=== PATIENT | male | born 1950 | race Caucasian/White ===

== ENCOUNTER 2025-03-10 08:48 | Outpatient (CLI) | payer MEDICARE, SELFPAY | END 2025-03-10 08:49 | disposition home or self-care (01) | LOC: AMB 03-11 10:40 | PROVIDERS: Visit Provider Family Medicine | DX: S59.902A Unspecified injury of left elbow, initial encounter (principal); W10.9XXA Fall (on) (from) unspecified stairs and steps, initial encounter; Y92.008 Other place in unspecified non-institutional (private) residence as the place of occurrence of the external cause | CPT/HCPCS: A0425; A0427 ==

== ENCOUNTER 2025-03-10 09:34 | Emergency (ER) | payer MEDICARE, SELFPAY ==
--- OUTSIDE RECORDS SUMMARY | 2025-01-27 09:40 | XMS_ITS | Encounter Summary ---
Author Organization [facility] Address [address] [place] [address] Care Team Providers Care Lpn Care Manager Name Role Phone Valerie Ch, P.A.-C. Primary Care Pro vider Encounter Details Date Type Department Care Team (Latest Contact Info) Description 01/27/2025 9:40 AM CDT - 01/27/2025 11:59 PM CDT Hospital Encounter Department of Laboratory Medicine in [place], [place] [address] [place] [address] Valerie Ch MPAS, P.A.-C. [address] [place] [address] Sacroiliitis; 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HCC); Arthritis Inflammatory (HCC); High Risk Medication Discharge Disposition: Home or Self Care Social History Tobacco Use Types Packs/Day Years Used Date Smoking Tobacco: Former Cigarettes 0.3 4.4 0 09/24/1983 - 02/22/1986 Passive Smoke Exposure: Past Smokeless Tobacco: Never Alcohol Use Standard Drinks/Week Comments Yes 10 (1 standard drink = 0.6 oz pure alcohol) I usually have a couple of glasses of wine on a daily basis. [facility] Utilities Answer Date Recorded In the past 12 months has [facility] electric, gas, oil, or water company threatened to shut off services in your home? No 03/05/2024 Humiliation, Afraid, Rape, and Kick questionnair e Answer Date Recorded Within the last year, have y ou been afraid of your partner or ex-partner? No 05/08/2024 Within the last year, have y ou been humiliated or emotionally abused in other ways by your partner or ex-partner? No Within the last year, have y ou been kicked, hit, slapped, or otherwise physically hurt by your partner or ex-partner? No 05/08/2024 Within the last year, have y ou been raped or forced to have any kind of sexual activity by your partner or ex-partner? No 05/08/2024 Social Connection and Isolation Panel [NHANES] A nswer Date Recorded In a typical week, how many times do you talk on the phone with family, friends, or neighbors? Once a week 12/11/2022 How often do you get togethe r with friends or relatives? Patient declined 12/11/2022 How often do you attend evangelical or episcopal serv ices? Never 12/11/2022 Do you belong to any clubs o r organizations such as evangelical groups, unions, fraternal or athletic groups, or school groups? No 12/11/2022 How often do you attend meet ings of the clubs or organizations you belong to? Patient declined 12/11/2022 Are you , , di vorced, , never , or living with a partner? 12/11/2022 AUDIT-C Answer Date Recorded Q1: How often do you have a drink containing alcohol? 4 or more times a week 12/11/2022 Q2: How many drinks containi ng alcohol do you have on a typical day when you are drinking? 1 or 2 Q3: How often do you have si x or more drinks on one occasion? Never 12/11/2022 Overall Financial Resource Strain (CARDIA) Answe r Date Recorded How hard is it for you to pa y for the very basics like food, housing, medical care, and heating? Not hard at all 12/11/2022 PHQ-2 Answer Date Recorded PHQ-2 Score 2 10/25/2024 [facility] - Occupational Stress Questionnaire Answer Date Recorded Do you feel stress - tense, restless, nervous, or anxious, or unable to sleep at night because your mind is troubled all the time - these days? Only a little 12/11/2022 Exercise Vital Sign Answer Date Recorde d On average, how many days pe r week do you engage in moderate to strenuous exercise (like a brisk walk)? 4 days 05/08/2024 On average, how many minutes do you engage in exercise at this level? 30 min 05/08/2024 Hunger Vital Sign Answer Date Recorded Within the past 12 months, y ou worried that your food would run out before you got the money to buy more. Never true 05/08/20 24 Within the past 12 months, t he food you bought just didn't last and you didn't have money to get more. Never true 05/08/2024 PRAPARE - Transportation Answer Date Re corded In the past 12 months, has l ack of transportation kept you from medical appointments or from getting medications? No 04/24 In the past 12 months, has l ack of transportation kept you from meetings, work, or from getting things needed for daily living? No 05/08/2024 Nutrition Answer Date Recorded On average, how many serving s of fruits and vegetables do you eat per day (serving size is equal to 1 cup or approximately the size of a tennis ball)? 0-2 05/08/2024 Dental Answer Date Recorded Dental: Regular Dentist Yes 11/11/19 Employment Answer Date Recorded Employment status Retired 05/08/2024 Housing Stability Answer Date Recorded What is your living situation today? I have a [facility] place to live 05/08/2024 Education Answer Date Recorded What is the highest level of school you have completed or the highest degree you have received? Some college, no degree 03/06/2019 Sex and Gender Information Value Date Recorded Sex Assigned at Male 10/15/2017 4:59 PM [employer] Legal Sex Male 6:35 AM [employer] Gender Identity Male 06/16/2020 8:28 AM CDT Sexual Orientation Straight 06/16/2020 8: 28 AM CDT Occupation Industry Job Start Date Job End Date Not on file Not on file Not on file Not on file documented as of this encounter Medications at Time of Discharge acetylcysteine 500 mg capsule Take 2 tablets by mouth daily. ascorbic acid, vitamin C, (VITAMIN C) 500 mg tablet Take 1,000 mg by mouth daily. 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 carbidopa-levodopa (Sinemet) 25-100 mg per tablet TAKE TWO TABLETS BY MOUTH THREE TIMES DAILY. INCREASE BY ONE-HALF TABLET THREE TIMES DAILY EVERY WEEK PER MED SCHEDULE TO A MAX OF THREE TABLETS BY MOUTH THREE TIMES DAILY. 270 tablet 09/12/2024 carbidopa-levodopa (Sinemet) 25-100 mg per tablet Take 2 tablets by mouth 3 (three) times a day. 540 tablet 3 11/20/2024 cholecalciferol (VITAMIN D3) 50 mcg (2,000 Unit) capsule Take 1 capsule by mouth daily. 11/25/2015 Eliquis 5 mg tablet TAKE TWO TABLETS BY MOUTH TWICE A DAY FOR 7 DAYS THEN TAKE ONE TABLET BY MOUTH TWICE A DAY THEREAFTER 11/21/2024 fluticasone propionate (Flonase) 50 mcg/actuation nasal sprayIndications:[place] Recurrent Maxillary Sinusitis Administer 2 sprays into each nostril daily. 16 g 5 06/18/2024 HERBAL DRUGS ORAL Take 600 mg by mouth daily. Alpha GPC levocarnitine HCl (JMOYAG-V-FNBHYFRVY MISC) Take 500 mg by mouth. LUTEIN ORAL Take 8,800 mcg by mouth daily. magnesium 200 mg tablet Take 1 tablet by mouth every morning. Plus 2 tabs at evening; Magtein (magnesium L-threonate) methotrexate (TrexalL) 2.5 mg tabletIndications:S acroiliitis,Spondyl itis Ankylosing (HCC),Arthritis Inflammatory (HCC),High Risk Medication TAKE 10 TABLETS BY MOUTH ONCE WEEKLY 40 tablet 01/22/2025 methylsulfonylmetha ne (MSM ORAL) Take 1 g by mouth daily. milk thistle 175 mg tablet Take 175 mg by mouth daily. multivitamin-minera ls (ICAPS PLUS) tablet Take 1 tablet by mouth daily. NICOTINAMIDE MONONUCLEOTIDE ORAL Take 250 mg by mouth daily. omega-3 fatty acids-fish oil 300-1,000 mg capsule Take 1,200 mg by mouth daily. Patient takes 1-2 times daily. sildenafiL (VIAGRA) 100 mg tablet Take 1 tablet (100 mg total) by mouth daily as needed for erectile dysfunction. Can use half tablet to start, maximum dose 100 mg 10 tablet 3 12/14/2023 TAURINE ORAL Take 500 mg by mouth daily. turmeric (CURCUMIN MISC) Take 750 mg by mouth 2 (two) times a day. TYROSINE ORAL Take 350 mg by mouth daily. N-Acetyl L-Tyrosine documented as of this encounter Plan of Treatment Upcoming Encounters Date Type Department Care Team (Latest Contact Info) Description 04/03/2025 10:30 AM CDT Ancillary Procedure Department of Ophthalmology in [place], [place] [address] [place] [address] Richy Cruz M.D. [address] [place] [phone] 04/24/2025 9:00 AM CDT Appointment Department of Cardiovascular Diseases in [address] [phone] Valerie Ch MPAS, P.A.-C. [address] [place] [phone] Discharge Disposition: Home or Self Care 05/01/2025 8:10 AM CDT Appointment Department of Laboratory Medicine in [address] [phone] Valerie Ch MPAS, P.A.-C. [address] [place] [phone] 05/08/2025 1:30 PM CDT Office Visit Department of Family Medicine, [facility], in [address] [phone] Eugene Bingham D.O. [address] [place] [phone] (work) documented as of this encounter Procedures Procedure Name Priority Date/Time Associated Diagnosis Comments HEPATIC FUNCTION PANEL, S Routine 01/27/2025 9:53 AM CDT Sacroiliitis 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HCC) Arthritis Inflammatory (HCC) High Risk Medication CBC WITH DIFFERENTIAL, B Routine 01/27/2025 9:53 AM CDT Sacroiliitis 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HCC) Arthritis Inflammatory (HCC) High Risk Medication CREATININE WITH EGFR, S/P Routine 01/27/2025 9:53 AM CDT Sacroiliitis 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HCC) Arthritis Inflammatory (HCC) High Risk Medication documented in this encounter Results * Creatinine with Estimated GFR (01/27/2025 9:53 AM CDT) Creatinine 0.76 0.74 - 1.35 mg/dL 01/27/2025 1:24 PM CDT [facility]AT Estimated GFR (eGFR) >90 >=60 mL/min/BSA 01/27/2025 1:24 PM CDT [facility] Comment: Estimated GFR calculated using the 2020 CKD_EPI creatinine equation. Blood (Blood, Venous) 01/27/2025 9:53 AM CDT 01/27/2025 12:45 PM CDT us Valerie CANO, P.A.-C. LAB BLOOD ADD-ON Final Result [facility] [address] [place] [address], [facility] [place] [address] [place] [address] * (ABNORMAL) Hepatic Function Panel (01/27/2025 9:53 AM CDT) Bilirubin, Total, P 0.4 0.0 - 1.2 mg/dL 01/27/2025 1:24 PM CDT [facility] Bilirubin, Direct, P 0.1 0.0 - 0.3 mg/dL 01/27/2025 1:24 PM CDT [facility] Aspartate Aminotransferase (AST), P 23 8 - 48 U/L 01/27/2025 1:24 PM CDT [facility] Alanine Aminotransferase (ALT), P 6(L) 7 - 55 U/L 01/27/2025 1:35 PM CDT [facility] Alkaline Phosphatase, P 54 40 - 129 U/L 01/27/2025 1:24 PM CDT [facility] Albumin, P 4.2 3.5 - 5.0 g/dL 01/27/2025 1:24 PM CDT [facility] Protein, Total, P 7.0 6.3 - 7.9 g/dL 01/27/2025 1:24 PM CDT [facility] Blood (Blood, Venous) 01/27/2025 9:53 AM CDT 01/27/2025 12:45 PM CDT us Valerie CANO, P.A.-C. LAB BLOOD ADD-ON Final Result [facility] [address] [place] [phone], [facility] [place] [address] [place] [address] * (ABNORMAL) CBC with Differential, Blood (01/27/2025 9:53 AM CDT) Hemoglobin 14.4 13.2 - 16.6 g/dL 01/27/2025 10:52 AM CDT [facility] Hematocrit 43.0 38.3 - 48.6 % 01/27/2025 10:52 AM CDT [facility] Erythrocytes 4.31(L) 4.35 - 5.65 x10(12)/L 01/27/2025 10:52 AM CDT [facility] MCV 99.8(H) 78.2 - 97.9 fL 01/27/2025 10:52 AM CDT [facility] RBC Distrib Width 13.7 11.8 - 14.5 % 01/27/2025 10:52 AM CDT [facility] Platelet Count 190 135 - 317 x10(9)/L 01/27/2025 10:52 AM CDT [facility] Leukocytes 5.9 3.4 - 9.6 x10(9)/L 01/27/2025 10:52 AM CDT [facility] Neutrophils 4.01 1.56 - 6.45 x10(9)/L 01/27/2025 10:52 AM CDT [facility] Lymphocytes 1.01 0.95 - 3.07 x10(9)/L 01/27/2025 10:52 AM CDT [facility] Monocytes 0.62 0.26 - 0.81 x10(9)/L 01/27/2025 10:52 AM CDT [facility] Eosinophils 0.23 0.03 - 0.48 x10(9)/L 01/27/2025 10:52 AM CDT [facility] Basophils 0.03 0.01 - 0.08 x10(9)/L 01/27/2025 10:52 AM CDT [facility] Blood (Blood, Venous) 01/27/2025 9:53 AM CDT 01/27/2025 9:53 AM CDT us Valerie CANO, P.A.-C. LAB BLOOD ADD-ON Final Result [facility] [address] [place] [phone], [facility] [place] [address] [place] [address] documented in this encounter Visit Diagnoses Diagnosis Sacroiliitis 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HCC) Arthritis Inflammatory (HCC) High Risk Medication documented in this encounter Additional Health Concerns Infection Onset Date Last Indicated Resolved Time Protective Environment 01/05/2023 01/05/2023 documented as of this encounter Care Teams Lpn Care Manager Relationship Specialty Start Date End Date Valerie Ch MPAS, P.A.-C. [address] [facility] [place] [phone] PCP - General 11/12/24 documented as of this encounter
--- OUTSIDE RECORDS SUMMARY | 2025-01-29 08:00 | XMS_ITS | Encounter Summary ---
Author Organization [facility] Address [address] [place] [address] Care Team Providers Care Oil Well Cable Tool Operator Name Role Phone Valerie Ch P.A.-CJorgito Primary Care Pro vider Reason for Referral * Cardiovascular-Diagnostic (Routine) - Authorized Specialty Diagnoses / Procedures Referred By Constantine peacock Referred To Contact Diagnoses Stenosis Aortic Valve Acquired Procedures Echo Transthoracic (TTE) Valerie Ch MPAS, P.A.-C. [address] [place] [address] Phone: tel: fax: [facility] Referral ID Status Reason Start Date Expiration Date V isits Requested Visits Authorized [id number] Authorized 01/29/2025 05/01/2026 1 1 Reason for Visit * Reason Comments office visit Medication review * Appointment Request (Routine) - Closed Specialty Diagnoses / Procedures Referred By Constantine peacock Referred To Contact [facility] Referral ID Status Reason Start Date Expiration Date Visits Re quested Visits Authorized [id number] Closed 01/22/2025 04/24/2026 1 1 Encounter Details Date Type Department Care Team (Latest Contact Info) Description 01/29/2025 8:00 AM CDT Comprehensive Visit Department of Community Internal Medicine in [place], [place] [address] [place] [address] Valerie Ch MPAS, P.A.-C. [address] [facility] [address] General Medical Examination Adult (Primary Dx); 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HCC); Arthritis Inflammatory (HCC); 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HCC); 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HCC); Asthma Mild Intermittent With History Of Tobacco Use (HCC); Gastroesophageal Reflux Disease Without Esophagitis; Mckenzie's Esophagus; Apnea Sleep Obstructive; Parkinsonism Unspecified (HCC); Thrombosis Deep Vein Personal History; Stenosis Aortic Valve Acquired; Hyperlipidemia Social History Tobacco Use Types Packs/Day Years Used Date Smoking Tobacco: Former Cigarettes 0.3 4.4 0 09/24/1983 - 02/22/1986 Passive Smoke Exposure: Past Smokeless Tobacco: Never Tobacco Cessation:Counseling Given: Not Answered Alcohol Use Standard Drinks/Week Comments Yes 10 (1 standard drink = 0.6 oz pure alcohol) I usually have a couple of glasses of wine on a daily basis. [facility] Psonarities Answer Date Recorded In the past 12 months has Tingz, oil, or water Temptster threatened to shut off services in your [...] declined 12/11/2022 How often do you attend latter day or advent serv ices? Never 12/11/2022 Do you belong to any clubs o r organizations such as latter day groups, unions, fraternal or athletic groups, or [...] Answer Date Recorded PHQ-2 Score 2 10/25/2024 [facility] - Occupational Stress [...] Date Recorded Dental: Regular Dentist Yes 11/11/19 21 Employment Answer Date Recorded Employment status Retired 05/08/2024 Housing Stability Answer Date Recorded What is your living situation today? I have a [facility] place to live 05/08/2024 Education Answer Date Recorded What is the highest level of school you have completed or the highest degree you have received? Some college, no degree 03/06/2019 Sex and Gender Information Value Date Recorded Sex Assigned at Male 10/15/2017 4:59 PM DISTRICT GAUGER Legal Sex Male 6:35 AM DISTRICT GAUGER Gender Identity Male 06/16/2020 8:28 AM CDT Sexual Orientation Straight 06/16/2020 8: 28 AM CDT Occupation Industry Job Start Date Job End Date Not on file Not on file Not on file Not on file documented as of this encounter Last Filed Vital Signs Vital Sign Reading Time Taken Comments Blood Pressure 120/75 01/29/2025 7:[address] Pulse 68 01/29/2025 7:44 AM CDT regul ar Temperature 36.1 C (97 F) 01/29/2025 7:44 AM CDT Respiratory Rate 16 01/29/2025 7:44 AM CDT Oxygen Saturation - - Inhaled Oxygen Concentration - - Weight 88.8 kg (195 lb 10.6 oz) 01/29/2025 7:44 AM CDT Height 168.4 cm (5' 6.3) 01/29/2025 7:44 AM CDT Body Mass Index 31.3 01/29/2025 7:44 AM CDT documented in this encounter H&P Notes * Valerie Ch MPAS, P.A.-C. - 01/29/2025 8:00 AM CDT SUBJECTIVE CHIEF COMPLAINT / REASON FOR VISIT office visit (Medication review) HISTORY OF PRESENT ILLNESS Leander Yun is a 74 y.o. male who presents today to critical access hospital care. He previously received his primary care in [place]. He has a past medical history of gastroesophageal reflux disease, seronegative rheumatoid arthritis, asthma with history of tobacco use, obstructive sleep apnea, parkinson disease. He follows with Neurology in [place]. He follows with [facility]ritis [facility]ology office in [place]. He is considering finding a new Ux Manager. He is not aware that his upper endoscopy in 2023 showed evidence of Mckenzie's esophagus. He has a family history of Mckenzie's esophagus. He takes famotidine as needed currently. He takes Eliquis as prescribed by provider at [facility]. It sounds like he was diagnosed with a DVT around Oct 2024 at [facility]. He is not sure how long he is supposed to take Eliquis. He has a left foot surgery Oct 2024 at [facility]. He is not bothered by his asthma, he does not use any inhalers. He is a former tobacco user with a 1.5 pack year history quit in . He has a history of drug use in the 1970s/. No current drug use aside from occasional marijuana. He drinks 2 alcoholic beverages per day. He says he is not very active due to issues with his left leg, left knee surgery in 2021 and then left foot surgery [id number]. ALLERGIES Levaquin [levofloxacin] Medical History[1] Surgical History[2] Family History[3] OBJECTIVE Blood pressure 120/75, pulse 68, temperature 36.1 ??C, temperature source Temporal, resp. rate 16, height 168.4 cm, weight 88.8 kg. PHYSICAL EXAMINATION Constitutional General: He is not in acute distress. Appearance: Normal appearance. HENT Head: Normocephalic and atraumatic. Right Ear: Tympanic membrane normal. Left Ear: Tympanic membrane normal. Mouth/Throat: Mouth: Mucous membranes are moist. Pharynx: Oropharynx is clear. No oropharyngeal exudate or posterior oropharyngeal erythema. Eyes Extraocular Movements: Extraocular movements intact. Conjunctiva/sclera: Conjunctivae normal. Pupils: Pupils are equal, round, and reactive to light. Cardiovascular Rate and Rhythm: Normal rate and regular rhythm. Heart sounds: Murmur heard. No gallop. Comments: Grade 2/6 systolic murmur heard throughout chest in aortic, pulmonic, tricuspid, and mitral regions. Pulmonary Effort: Pulmonary effort is normal. No respiratory distress. Breath sounds: Normal breath sounds. No wheezing, rhonchi or rales. Abdominal General: Bowel sounds are normal. There is no distension. Palpations: Abdomen is soft. Tenderness: There is no abdominal tenderness. There is no guarding or rebound. Musculoskeletal Cervical back: Neck supple. Right lower leg: Edema present. Left lower leg: Edema present. Comments: Compression stockings in place Skin General: Skin is warm and dry. Neurological Mental Status: He is alert. Mental status is at baseline. Motor: No weakness. Deep Tendon Reflexes: Reflexes normal. Psychiatric Mood and Affect: Mood normal. Behavior: Behavior normal. Thought Content: Thought content normal. 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 I have ordered CBC, creatinine/GFR, and hepatic functionpanel to be completed in 3 months for methotrexate monitoring. He previously followed at [facility] in the [facility], last visit Oct 2023. I recommend he follow-up with his Rheumatology team. #5 Asthma Mild Intermittent With History Of Tobacco Use ([facility]) No current concerns. He is not taking any prescription inhalers. #6 Gastroesophageal Reflux Disease Without Esophagitis #7 Mckenzie's Esophagus He had an upper endoscopy completed Sep 2023 with evidence of Mckenzie's esophagus without dysplasia. The recommendation is to repeat upper endoscopy in 3 years. He will be due for this in 2026. I would recommend he take daily PPI. I have sent omeprazole 20 mg daily to his pharmacy #8 Apnea Sleep Obstructive He previously used CPAP machine but no longer uses this. Previously followed with Dr. Casillas [facility]. I recommend he revisit with Sleep Medicine. #9 Parkinsonism Unspecified ([facility]) He follows with Neurology in [place] and is prescribed Sinemet #10 Thrombosis Deep Vein Personal History It sounds as though he experienced a DVT after a surgical procedure in October 2024 at [facility]. The details surrounding this event a bit unclear. He continues on Eliquis. I recommendhe talk to prescribing provider regarding duration of anticoagulation therapy #11 Stenosis Aortic Valve Acquired He has a systolic murmur on exam. Last echocardiogram completed in 2019 with evidence of mild calcifications of aortic valve. I recommend we update echocardiogram as 1st available. - Echo Transthoracic (TTE); Future; Expected date: 01/29/2025 #12 Hyperlipidemia I recommend he return to clinic for fasting lab draw to complete lipid panel #13 General Medical Examination Adult Colonoscopy completed April 2019 was normal. No specimens collected. I recommend he return to clinic for fasting lab draw to check fasting glucose, lipid panel, and PSA for prostate cancer screening. He will receive a COVID booster today. - PSA (Prostate-Specific Antigen) Screen; Future; Expected date: 01/29/2025 - Lipid Panel; Future; Expected date: 01/29/2025 - Glucose, Fasting; Future; Expected date: 01/29/2025 Other orders - CBC with Differential, Blood; Future; Expected date: 05/01/2025 - Hepatic Function Panel; Future; Expected date: 05/01/2025 - Creatinine with Estimated GFR; Future; Expected date: 05/01/2025 - omeprazole (PriLOSEC) [address] capsule; Take 1 capsule (20 mg total) by mouth daily before morning meal., Starting Neetu 01/29/2025, Normal - SARS-COV-2 (COVID-19) - MODERNA (12 years and older) [id number] Total time spent: 40 minutes Valerie Ch PA-C [1] Past Medical History: Diagnosis Date Arthritis Rheumatoid (HCC) 2016 Asthma NOS 2006 Cataract 2020 Hyperlipidemia 2015 Other Specified Health Status 2018 Parkinson's disease Sleep Apnea 2011 [2] Past Surgical History: Procedure Laterality Date APPENDECTOMY Pre-teen years ARTHROPLASTY KNEE Left 07/14/2022 Dr. Justice. CIRCUMCISION N/A Circumcision EXCISION OF CYST N/A 12/07/2015 Excision of cyst FOOT SURGERY Left [facility]. Oct 2024. LUMBAR DISCECTOMY N/A 10/09/1989 Discectomy OTHER SURGICAL HISTORY 2019 Arthroscopic surgery on knee. Left SINUS SURGERY 1999 TONSILLECTOMY AND ADENOIDECTOMY N/A Adenotonsillectomy [3] Family History Problem Relation Name Age of Onset Breast cancer Mother Kellie Macular degeneration Mother Kellie Prostate cancer Father Eugene 80 - 99 Other cancer Father Eugene 80 - 99 bladder Stroke Father Eugene 70 - 79 Esophageal stricture Father Eugene 70 - 79 Mckenzie esophagus Father Eugene 80 - 99 Essential tremor. Sister Abi No Known Problems Sister Joanie Esophageal cancer Brother Keron Yun 70 - 79 He was treated for it @ [facility] in [place], [place]. Mckenzie esophagus Brother Keron Yun 70 - 79 Hernia Brother Bogdan 40 - 49 Other (cervical spine surgery) Brother Bogdan 50 - 59 Parkinson disease Father's Brother Apollo Parkinsonism Father's Brother Apollo Essential tremor. Aunt Marsha Pablo She was my great Aunt. So, I always saw as having the condition. Breast cancer Other Flakita Yun Aortic aneurysm Other Flakita Yun 70 - 79 Retinal detachment Neg Hx Retinal degeneration Neg Hx Strabismus Neg Hx Glaucoma Neg Hx documented in this encounter Plan of Treatment Upcoming Encounters Date Type Department Care Team (Latest Contact Info) Description 04/03/2025 10:30 AM CDT Ancillary Procedure Department of Ophthalmology in [place], [place] [address] [address] Richy Cruz M.D. [address] [address] 04/24/2025 9:00 AM CDT Appointment Department of Cardiovascular Diseases in [address] [phone] Valerie Ch MPAS, P.A.-C. [address] [place] [phone] Discharge Disposition: Home or Self Care 05/01/2025 8:10 AM CDT Appointment Department of Laboratory Medicine in [address] [phone] Valerie Ch MPAS, P.A.-C. [address] [place] [address] 05/08/2025 1:30 PM CDT Office Visit Department of Family Medicine, [facility], in [address] [phone] Eugene Bingham D.O. [address] [place] [phone] Scheduled Orders Name Type Priority Associated Diagnoses Orde r Schedule CBC with Differential, Blood Lab Routine 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HCC) Arthritis Inflammatory (HCC) 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HCC) Expected: 05/01/2025, Expires: 05/01/2026 Hepatic Function Panel Lab Routine 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HCC) Arthritis Inflammatory (HCC) 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HCC) Expected: 05/01/2025, Expires: 05/01/2026 Creatinine with Estimated GFR Lab Routine 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HCC) Arthritis Inflammatory (HCC) 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HCC) Expected: 05/01/2025, Expires: 01/29/2026 Echo Transthoracic (TTE) Echocardiography Routine Stenosis Aortic Valve Acquired Expected: 01/29/2025, Expires: 05/01/2026 documented as of this encounter Results * (ABNORMAL) Glucose, Fasting (02/03/2025 8:17 AM CDT) Glucose, P 112(H) 70 - 100 mg/dL 02/03/2025 11:09 AM CDT OWAT Last Intake 16 hr 02/03/2025 10:32 AM CDT OWAT Blood (Blood, Venous) 02/03/2025 8:17 AM CDT 02/03/2025 10:31 AM CDT us Valerie CANO, P.A.-C. LAB BLOOD NON ADD -ON Final Result [facility] [address] [place] [address], [place] OWAT [facility] [place] [address] [place] [address] * (ABNORMAL) Lipid Panel (02/03/2025 8:17 AM CDT) Triglycerides 183(H) mg/dL 02/03/2025 11:01 AM CDT OWAT Comment: ----REFERENCE VALUE---- Normal: <150 mg/dL Borderline High: 150-199 mg/dL High: 200-499 mg/dL Very High: > or =500 mg/dL Cholesterol, Total 204(H) mg/dL 2024 11:01 AM CDT OWAT Comment: ----REFERENCE VALUE---- Desirable: < 200 mg/dL Borderline High: 200 - 239 mg/dL High: > or = 240 mg/dL Cholesterol, LDL, Calculated 130(H) mg/dL 02/03/2025 11:01 AM CDT OWAT Comment: ----REFERENCE VALUE---- Desirable: <100 mg/dL Above Desirable: 100-129 mg/dL Borderline High: 130-159 mg/dL High: 160-189 mg/dL Very High: >=190 mg/dL ----ADDITIONAL INFORMATION---- LDL cholesterol calculated using the Whitney/NIH equation. Cholesterol, HDL 41 >=40 mg/dL 02/04/20 11:01 AM CDT OWAT Cholesterol, Non-HDL, Calculated 163(H) mg/dL 02/03/2025 11:01 AM CDT OWAT Comment: ----REFERENCE VALUE---- Desirable: <130 mg/dL Above Desirable: 130-159 mg/dL Borderline High: 160-189 mg/dL High: 190-219 mg/dL Very High: > or =220 mg/dL Fasting (8 HR or more) Yes 02/03/2025 8:17 AM CDT OWAT Blood (Blood, Venous) 02/03/2025 8:17 AM CDT 02/03/2025 10:30 AM CDT us Valerie CANO, P.A.-C. LAB BLOOD ADD-ON Final Result [facility] [address] [place] [address], [place] OWAT [facility] [place] [address] [place] [address] * PSA (Prostate-Specific Antigen) Screen (02/03/2025 8:17 AM CDT) Prostate-Specific Ag 3.9 <=6.5 ng/mL 02/03/2025 11:03 AM CDT OW Comment: ----ADDITIONAL INFORMATION---- The testing method is an electrochemiluminescence assay manufactured by [employer] and performed on the Modular or Simona system. Values obtained with different assay methods or kits may be different and cannot be used interchangeably. Test results cannot be interpreted as absolute evidence for the presence or absence of malignant disease. Blood (Blood, Venous) 02/03/2025 8:17 AM CDT 02/03/2025 10:30 AM CDT us Valerie CANO, P.A.-C. LAB BLOOD ADD-ON Final Result [facility] [address] [place] [address], 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 [address] [place] [address] Nikki [place]ABOBO TOMPKINS [phone] PCP - General 11/12/24 documented as of this encounter
--- OUTSIDE RECORDS SUMMARY | 2025-02-03 08:04 | XMS_ITS | Encounter Summary ---
Author Organization [facility] Address [address] [place] [address] Care Team Providers Care Hospital Attendant Name Role Phone Valerie Ch, P.A.-CJorgito Primary Care Pro vider Encounter Details Date Type Department Care Team (Latest Contact Info) Description 02/03/2025 8:04 AM CDT - 02/03/2025 11:59 PM CDT Hospital Encounter Department of Laboratory Medicine in [place], [place] [address] [place] [address] Valerie Ch MPAS, P.A.-CJorgito [address] [place] [phone] Impaired Fasting Glucose (Primary Dx); General Medical Examination Adult Discharge Disposition: Home or Self Care Social History Tobacco Use Types Packs/Day Years Used Date Smoking Tobacco: Former Cigarettes 0.3 4.4 0 09/24/1983 - 02/22/1986 Passive Smoke Exposure: Past Smokeless Tobacco: Never Alcohol Use Standard Drinks/Week Comments Yes 10 (1 standard drink = 0.6 oz pure alcohol) I usually have a couple of glasses of wine on a daily basis. [facility] Utilities Answer Date Recorded In the past 12 months has Krikle, gas, oil, or water Blurb threatened to shut off services in your [...] declined 12/11/2022 How often do you attend synagogue or jehovah's witness serv ices? Never 12/11/2022 Do you belong to any clubs o r organizations such as synagogue groups, unions, fraternal or athletic groups, or [...] when you are drinking? 1 or 2 3 Q3: How often do you have si x or more drinks on one occasion? Never 12/11/2022 Overall Financial Resource Strain (CARDIA) Answe r Date Recorded How hard is it for you to pa y for the very basics like food, housing, medical care, and heating? Not hard at all 12/11/2022 PHQ-2 Answer Date Recorded PHQ-2 Score 2 10/25/2024 [facility] Occupat ional Health - Occupational Stress [...] your living situation today? I have a [facility] place to live 05/08/2024 Education Answer Date Recorded What is the highest level of school you have completed or the highest degree you have received? Some college, no degree 03/06/2019 Sex and Gender Information Value Date Recorded Sex Assigned at Male 10/15/2017 4:59 PM SURGEON PARTNER Legal Sex Male 6:35 AM SURGEON PARTNER Gender Identity Male 06/16/2020 8:28 AM CDT [...] fluticasone propionate (Flonase) 50 mcg/actuation nasal sprayIndications:Ac upper [place] Recurrent Maxillary Sinusitis Administer 2 sprays into each nostril daily. 16 g 5 06/18/2024 HERBAL DRUGS ORAL Take 600 mg by mouth daily. Alpha GPC levocarnitine HCl (AEJTGI-H-GLJJXZIML MISC) Take 500 mg by mouth. LUTEIN [...] mouth daily. Patient takes 1-2 times daily. omeprazole (PriLOSEC) [address] capsule Take 1 capsule (20 mg total) by mouth daily before morning meal. 90 capsule 3 01/29/2025 Research IRB [id number] n-palmitoylethanola mide 400 mg or placebo (PEA) capsule Take by mouth daily. sildenafiL (VIAGRA) 100 mg tablet Take [...] 350 mg by mouth daily. N-Acetyl L-Tyrosine folic acid-vitamin B6,B12 (Folbee) 2.5-25-1 mg per tablet Take 1 tablet by mouth daily. documented as of this encounter Plan of Treatment Upcoming Encounters Date Type Department Care Team (Latest Contact Info) Description 04/03/2025 10:30 AM CDT Ancillary Procedure Department of Ophthalmology in [place], [place] [address] [phone] Richy Cruz M.D. [address] [phone] 04/24/2025 9:00 AM CDT Appointment Department of Cardiovascular Diseases in [place], [place] [address] [place] [address] Valerie Ch MPAS, P.A.-C. [address] [place] [phone] Discharge Disposition: Home or Self Care 05/01/2025 8:10 AM CDT Appointment Department of Laboratory Medicine in [place], [place] [address] [place] [phone] Valerie Ch MPAS, P.A.-C. [address] [place] [phone] 05/08/2025 1:30 PM CDT Office Visit Department of Family Medicine, [facility], in [place], [place] [address] [place] [phone] Eugene Bingham D.O. [address] [place] [phone] documented as of this encounter Procedures Procedure Name Priority Date/Time Associated Diagnosis Comments LIPID PANEL, S Routine 02/03/2025 8:17 AM CDT General Medical Examination Adult PROSTATE-SPECIFIC AG (PSA) SCRN, S Routine 02/03/2025 8:17 AM CDT General Medical Examination Adult GLUCOSE, FASTING, S/P Routine 02/03/2025 8:17 AM CDT General Medical Examination Adult documented in this encounter Results * (ABNORMAL) Glucose, Fasting (02/03/2025 8:17 AM CDT) Glucose, P 112(H) 70 - 100 mg/dL 02/03/2025 11:09 AM CDT OWAT Last Intake 16 hr 02/03/2025 10:32 AM CDT OWAT Blood (Blood, Venous) 02/03/2025 8:17 AM CDT 02/03/2025 10:31 AM CDT Valerie Ch MPAS, P.A.-C. LAB BLOOD NON ADD -ON Final Result [facility] [address] [place] [address], [place] OWAT [facility] [place] [address] [place] [address] * (ABNORMAL) Lipid Panel (02/03/2025 8:17 AM [...] CANO, P.A.-C. LAB BLOOD ADD-ON Final Result [facility] [address] [place] [address], [place] OWAT [facility] [place] [address] [place] [address] * PSA (Prostate-Specific Antigen) Screen (02/03/2025 8:17 AM CDT) Prostate-Specific Ag 3.9 <=6.5 ng/mL 02/03/2025 11:03 AM CDT OWAT Comment: ----ADDITIONAL INFORMATION---- The testing method is [...] CDT 02/03/2025 10:30 AM CDT us Valerie CANO PJorgitoA.-C. LAB BLOOD ADD-ON Final Result [facility] [address] [place] [address], [facility] OWAT [facility] [place] [address] [place] [address] documented in this encounter Visit Diagnoses Diagnosis Impaired Fasting Glucose- Primary General Medical Examination Adult documented in this encounter Additional Health Concerns Infection Onset Date Last Indicated Resolved Time Protective Environment 01/05/2023 01/05/2023 documented as of this encounter Care Teams Hospital Attendant Relationship Specialty Start Date End Date Valerie Ch MPAS, P.A.-C. [address] [place] [address] [place] [address] PCP - General 11/12/24 documented as of this encounter
[2025-03-10] VITALS (13 sets, daily range): BP systolic 116–130; BP diastolic 71–88; PULSE 63–71; RESP 16–18; TEMP 36.3; O2SAT 93–96; BMI 31.5
--- OUTSIDE RECORDS SUMMARY | 2025-03-10 09:36 | XMS_ITS | Encounter Summary ---
Author Organization [facility] Address [address] [place] [address] Care Team Providers Care Seed And Fertilizer Specialist Name Role Phone Valerie Ch P.A.-CJorgito Primary Care Pro vider Encounter Details Date Type Department Care Team (Late st Contact Info) Description 02/04/2025 Results Follow-Up Department of Community Internal Medicine in [place], [place] [address] [place] [address] Valerie Ch MPAS, P.A.-CJorgito [address] [place] [phone] PSA (Prostate-Specific Antigen) Screen, Lipid Panel, Glucose, Fasting Social History Tobacco Use Types Packs/Day Years Used Date Smoking Tobacco: Former Cigarettes 0.3 4.4 0 09/24/1983 - 02/22/1986 Passive Smoke Exposure: Past Smokeless Tobacco: Never Alcohol Use Standard Drinks/Week Comments Yes 10 (1 standard drink = 0.6 oz pure alcohol) I usually have a couple of glasses of wine on a daily basis. [facility] Utilities Answer Date Recorded In the past 12 months has e [employer], gas, oil, or water [employer] threatened to shut off services in your [...] declined 12/11/2022 How often do you attend lutheran or cheondoism serv ices? Never 12/11/2022 Do you belong to any clubs o r organizations such as lutheran groups, unions, fraternal or athletic groups, or [...] Answer Date Recorded PHQ-2 Score 2 10/25/2024 [facility] - Occupational [...] your living situation today? [facility] 05/08/2024 Education Answer Date Recorded What is the highest level of school you have completed or the highest degree you have received? 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 [address] [place] [phone] 04/24/2025 9:00 AM CDT Appointment Department of Cardiovascular Diseases in [place], [place] [address] [place] [address] Valerie Ch MPAS, P.A.-C. [address] [place] [address] Discharge Disposition: Home or Self Care 05/01/2025 8:10 AM CDT Appointment Department of Laboratory Medicine in [address] [phone] Valerie Ch MPAS, P.A.-C. [address] [place] [phone] 05/08/2025 1:30 PM CDT Office Visit Department of Family Medicine, [facility], in [place], [place] [address] [place] [address] Eugene Bingham D.O. [address] [phone] Scheduled Orders Name Type Priority Associated Diagnoses Orde r Schedule Hemoglobin A1c Lab Routine Impaired Fasting Glucose Expected: 02/05/2025, Expires: 05/08/2026 documented as of this encounter Visit Diagnoses Diagnosis Impaired Fasting Glucose- Primary documented in this encounter Additional Health Concerns Infection Onset Date Last Indicated Resolved Time Protective Environment 01/05/2023 01/05/2023 documented as of this encounter Care Teams Seed And Fertilizer Specialist Relationship Specialty Start Date End Date Valerie Ch MPAS, P.A.-C. [address] [place] [phone] PCP - General 11/12/24 documented as of this encounter
--- OUTSIDE RECORDS SUMMARY | 2025-03-10 09:36 | XMS_ITS | Encounter Summary ---
Author Organization [facility] Address [address] [place] [address] Care Team Providers Care Manager Marketing Sales Name Role Phone Valerie Ch P.A.-C. Primary Care Pro vider Reason for Visit * Reason Comments Med Refill Encounter Details Date Type Department Care Team (Late st Contact Info) Description 02/26/2025 Refill Department of Neurology in [place], [place] [address] [place] [address] Nellie Jones M.D. [address] [place] [phone] Med Refill Social History Tobacco Use Types Packs/Day Years Used Date Smoking Tobacco: Former Cigarettes 0.3 4.4 0 09/24/1983 - 02/22/1986 Passive Smoke Exposure: Past Smokeless Tobacco: Never Alcohol Use Standard Drinks/Week Comments Yes 10 (1 standard drink = 0.6 oz pure alcohol) I usually have a couple of glasses of wine on a daily basis. [facility] Utilities Answer Date Recorded In the past 12 months has e electric, gas, oil, or water company threatened [...] declined 12/11/2022 How often do you attend catholic or roman catholic serv ices? Never 12/11/2022 Do you belong to any clubs o r organizations such as catholic groups, unions, fraternal or athletic groups, or [...] Answer Date Recorded PHQ-2 Score 2 10/25/2024 [facility] [employer] of Occupat ional Health - Occupational Stress [...] your living situation today? [facility] 05/08/2024 Education Answer Date Recorded What is the highest level of school you have completed or the highest degree you have received? 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 [address] [phone] 04/24/2025 9:00 AM CDT Appointment Department of Cardiovascular Diseases in [place], [place] [address] [place] [phone] Valerie Ch MPAS, P.A.-C. [address] [facility] [place] [phone] Discharge Disposition: Home or Self Care 05/01/2025 8:10 AM CDT Appointment Department of Laboratory Medicine in [place], [place] [address] [facility] [place] [phone] Valerie Ch MPAS, P.A.-C. [address] [facility] [place] [phone] 05/08/2025 1:30 PM CDT Office Visit Department of Family Medicine, [facility], in [place], [place] [address] [place] [phone] Eugene Bingham D.O. [address] [facility] [place] [place] [phone] documented as of this encounter Visit Diagnoses Not on filedocumented in this encounter Additional Health Concerns Infection Onset Date Last Indicated Resolved Time Protective Environment 01/05/2023 01/05/2023 documented as of this encounter Care Teams Manager Marketing Sales Relationship Specialty Start Date End Date Valerie Ch MPAS, P.A.-C. [address] [place] [address] [place] [phone] PCP - General 11/12/24 documented as of this encounter
--- OUTSIDE RECORDS SUMMARY | 2025-03-10 09:36 | XMS_ITS | Clinical Summary ---
Author Organization [facility] Address [address] [place] [address] Care Team Providers Care Gatehouse Attendant Name Role Phone RyannemejiaPreethi Slime PRICE Primary Care Provider Allergies Active Allergy Reactions Criticality Noted Date Comments Levofloxacin Myalgia Medium 10/01/2019 Tendon injury Medications acetylcysteine 600 mg cap capsule Take 1 Cap by mouth once daily. 6 Active cholecalciferol (VITAMIN D3) 2,000 unit capsule Take 1 Cap by mouth once daily. 6 Active LACTOBACILLUS ACIDOPHILUS ORAL Take 1 Cap by mouth once daily. Active Magnesium 200 mg tab Take 133 mg by mouth once daily. Active Milk Thistle 175 mg tablet Take 175 mg by mouth once daily. Active fish oil-omega-3 fatty acids 300-1,000 mg Take 1,200 mg by mouth once daily. Active ascorbic acid (VITAMIN C ORAL) Take 500 mg by mouth once daily. Active carbidopa-levod opa, 25-100 mg, (SINEMET 25-100) 25-100 mg tablet Take 1 Tablet by mouth three times daily. Active GLYCINE ORAL Take 1 g by mouth once daily. Active LEVOCARNITINE HCL, BULK, MISC Take 500 mg by mouth once daily. Active TURMERIC ORAL Take 750 mg by mouth once daily. Active folic acid-vit b6-vit b12, 2.5-25-2mg, (Folbic) 2.5-25-2 mg tab Take 1 Tablet by mouth once daily. 1 Active acetaminophen (TYLENOL EXTRA STRGTH) 500 mg tabletIndicatio ns:Total knee replacement status, left Take 1 Tablet (500 mg) by mouth every 6 hours if needed for Pain. Max acetaminophen dose: 4000mg in 24 hrs. 200 Tablet 2 Active WalkerIndicatio ns:Total knee replacement status, left Walker with front wheels for home use. 1 Each 2 Active aspirin chewable 81 mg chewable tablet Chew 81 mg by mouth once daily with a meal. 2 Active methotrexate (RHEUMATREX) 2.5 mg tablet Take 2.5 mg by mouth once weekly. 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 Gender Identity Not on file Sexual Orientation Not on file Obstetrics History Last Filed Vital Signs Vital Sign Reading Time Taken Comments Blood Pressure 115/73 09/27/2023 9:55 AM RING ATTACHER Pulse 67 09/27/2023 9:55 AM RING ATTACHER Temperature 36 C (96.8 F) 09/27/2023 9:07 AM RING ATTACHER Respiratory Rate 18 09/27/2023 9:55 AM RING ATTACHER Oxygen Saturation 98% 09/27/2023 9:55 AM RING ATTACHER Inhaled Oxygen Concentration - - Weight 88 kg (194 lb) 09/27/2023 8:26 AM RING ATTACHER Height 167 cm (5' 5.75) 09/18/2023 4:54 PM RING ATTACHER Body Mass Index 31.55 09/18/2023 4:54 PM RING ATTACHER Plan of Treatment Health Maintenance Due Date Last Done Comments Tdap 1959 Depression screening for age 12+ 1960 BMI (ht and wt on same day) for age 18+ 1966 Hepatitis C screening for age 18-79 1966 Zoster (shingles) series for age 50+ (1 of 2) 1967 Tetanus booster 1968 Pneumococcal series for age 50+ (1 of 1 - PCV) 1998 RSV vaccine for adults or (1 - 1-dose 75+ series) 2023 Influenza Vaccine (Season Ended) 2025 07/28/2010 COVID-19 vaccine series (8 - Moderna risk season) 2025 01/29/2025, 07/11/2023, 06/21/2022, Additional history exists Hepatitis B series for 19+ Aged Out N o longer eligible based on patient's age to complete this topic Medical Devices Implanted Type Area Hydraulic Tester Device Identifier Shelf Expiration Date Model / Serial / Lot Patella [id number] Triathlon Tritanium Symmetrical Metal Backed - [id number] Implanted:Qty: 1 on 07/14/2022 by Apollo Justice MD at [facility] Left: Knee [employer] 05/29/2027 [id number] / / [id number] Fem Lt 5 Triathlon Beaded W/Pa - [id number] Implanted:Qty: 1 on 07/14/2022 by Apollo Justice MD at [facility] Left: Knee [employer] 05/21/2027 [id number] / / [id number] Baseplate Tib Univ Sz 4 Triathlon Keeled Ingrowth Pors Tritan - [id number] Implanted:Qty: 1 on 07/14/2022 by Apollo Justice MD at [facility] Left: Knee [employer] 05/17/2027 [id number] / / [id number] Insert Tib Sz 4 11mm Knee X3 Condylar Stabilizing [employer]athlon - [id number] Implanted:Qty: 1 on 07/14/2022 by Apollo Justice MD at [facility] Left: Knee [employer] 05/02/2027 [id number] / / [id number] Insurance MEDICARE PART A HB ONLY [facility] MEDICARE ADVANTAGE MR Advance Directives * Full Code (Latest Code Status on File) Date Activated Date Inactivated Comments 09/27/2023 8:11 AM 09/27/2023 12:09 PM Question Answer Comments Code Status Discussion: Reviewed Preferences * Full Code Date Activated Date Inactivated Comments 07/14/2022 5:55 AM 07/14/2022 6:14 PM Question Answer Comments Code Status Discussion: Per Existing Order * Full Code Date Activated Date Inactivated Comments 05/14/2020 9:58 AM 05/14/2020 4:38 PM * Full Code Date Activated Date Inactivated Comments 05/19/2019 10:29 AM 05/19/2019 4:14 PM Care Teams Gatehouse Attendant Relationship Specialty Start Date End Date Slime Esquivel DO PCP - General Internal Medicine 05/13/19
--- OUTSIDE RECORDS SUMMARY | 2025-03-10 09:37 | XMS_ITS | Continuity of Care Document ---
Author Organization [facility] Address [address] [place] [address] Care Team Providers Care Sugarcane Research Technician Name Role Phone Valerie Ch, P.A.-C. Primary Care Pro vider Source Comments Patient records contain information from all sites at [facility]. For routine questions regarding patient records, call [phone] during business hours, M-F 8:00 AM - 5:00 PM Central Time. Record requests for emergency care only can be directed to [phone] at any time.[facility] Encounters Date Type Department Care Team Description 5 Refill Department of Neurology in [place], [place] [address] [place] [address] Nellie Jones M.D. Med Refill 5 Results Follow-Up Department of Community Internal Medicine in [address] [phone] Valerie Ch MPAS, P.A.-C. PSA (Prostate-Specific Antigen) Screen, Lipid Panel, Glucose, Fasting 5 8:04 AM CDT - 5 11:59 PM CDT Hospital Encounter Department of Laboratory Medicine in [address] [phone] Valerie hC MPAS, P.A.-C. Impaired Fasting Glucose (Primary Dx); General Medical Examination Adult Discharge Disposition: Home or Self Care 5 8:00 AM CDT Comprehensive Visit Department of Community Internal Medicine in [place], [place] [address] [place] [address] Valerie Ch MPAS, P.A.-C. General Medical Examination Adult (Primary Dx); 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HCC); Arthritis Inflammatory (HCC); 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HCC); 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HCC); Asthma Mild Intermittent With History Of Tobacco Use (HCC); Gastroesophageal Reflux Disease Without Esophagitis; Mckenzie's Esophagus; Apnea Sleep Obstructive; Parkinsonism Unspecified (HCC); Thrombosis Deep Vein Personal History; Stenosis Aortic Valve Acquired; Hyperlipidemia 5 9:40 AM CDT - 5 11:59 PM CDT Hospital Encounter Department of Laboratory Medicine in [address] [address] Valerie Ch MPAS, P.A.-CJorgito Sacroiliitis; 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HCC); Arthritis Inflammatory (HCC); High Risk Medication Discharge Disposition: Home or Self Care 5 Refill Department of Community Internal Medicine in [place], [place] [address] [place] [phone] Valerie Ch MPAS, P.A.-CJorgito Med Refill 5 10:41 AM CDT - 5 11:46 AM CDT Hospital Encounter Department of Neurology in [place], [place] [address] [place] [address] Nellie Jones M.D. Ali, Farwa, M.B.B.S. Sialorrhea Discharge Disposition: Home or Self Care 5 Clinical Communication Department of Neurology in [place], [place] [address] [place] [address] Nellie Jones M.D. 5 Refill Department of Community Internal Medicine in [place], [place] [address] [place] [phone] Valerie Ch MPAS P.A.-C. Med Refill 5 Results Follow-Up Department of Internal Medicine in [address] [address] Marta Martines P.A.-C., M.S. ECG 12 Lead, CBC with Differential, Blood, Comprehensive Metabolic Panel 5 8:27 AM BARREL MAKER - 5 11:59 PM BARREL MAKER Hospital Encounter Department of Laboratory Medicine in [address] [address] Marta Martines P.A.-C., M.S. Preoperative Exam Discharge Disposition: Home or Self Care 5 8:27 AM BARREL MAKER - 5 11:59 PM BARREL MAKER Hospital Encounter Department of Laboratory Medicine in [address] [address] Marta Martines P.A.-C., M.S. Preoperative Exam; 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HCC); 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HCC); High Risk Medication Discharge Disposition: Home or Self Care 5 8:00 AM BARREL MAKER Office Visit Department of Internal Medicine in [address] [address] Marta Martines P.A.-C., M.S. Preoperative Exam (Primary Dx); Parkinsonism Unspecified (HCC); 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HCC); 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HCC); 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HCC); Sleep Apnea; High Risk Medication 5 1:30 PM BARREL MAKER Office Visit Department of Otorhinolaryngology in [address] [facility] [place] [address] Bisi Gill P.A.-C. Otitis Media Chronic Serous Right (Primary Dx); Follow Up Examination Status Post Surgery 5 9:15 AM BARREL MAKER Ancillary Procedure Department of Ophthalmology in [address] [address] Richy Cruz M.D. Cataract Senile Nuclear Sclerosis Bilateral (Primary Dx); Membrane Macula Epiretinal Right 4 Refill Department of Neurology in [place], [place] [address] [place] [address] Nellie Jones M.D. Med Refill 4 Refill Department of Neurology in [place], [place] [address] [place] [address] Nellie Jones M.D. Med Refill 4 11:09 AM BARREL MAKER - 4 11:59 PM BARREL MAKER Hospital Encounter Department of Radiology in [address] [address] Marta Martines P.A.-C., M.S. Pain Ankle Left Discharge Disposition: Home or Self Care 4 10:40 AM BARREL MAKER Office Visit Department of Internal Medicine in [address] [address] Marta Martines P.A.-C., M.S. Pain Ankle Left (Primary Dx); Swelling Leg Left; 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HCC) 4 9:00 AM BARREL MAKER Comprehensive Visit Department of Otorhinolaryngology in [address] [address] Bisi Gill, P.A.-C. 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 Swelling Leg Left Discharge Disposition: Home or Self Care 4 3:00 PM BARREL MAKER Office Visit Department of Family Medicine, [facility], in [address] [address] Noemi Ernst APRN, C.N.P., D.N.P. Swelling Leg Left (Primary Dx); Elevated D-Dimer Uncertain Significance; Pain Ankle Left 4 Nurse Triage Department of Internal Medicine in [address] [address] Caryn Pacheco R.N. Ankle Pain 4 Clinical Communication Department of Orthopedic Surgery in [address] [address] Apollo Justice M.D. 4 9:26 AM CDT - 4 11:59 PM CDT Hospital Encounter Department of Laboratory Medicine in [address] [address] Slime Reynoso, D.O. Arthritis Inflammatory (HCC) Discharge Disposition: Home or Self Care 4 Clinical Communication Department of Ophthalmology in [address] [address] Richy Cruz M.D. Appt Request 4 3:40 PM CDT Office Visit Department of Internal Medicine in [address] [address] Slime Reynoso D.O. Dysfunction Eustachian Tube Bilateral (Primary Dx); 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HCC); 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HCC); Acute Recurrent Maxillary Sinusitis 4 Refill Department of Internal Medicine in [address] [address] Slime Reynoso D.O. Med Refill 4 Nurse Triage Department of Family Medicine, [facility], in [place], [place] [address] [place] [address] Nusrat Duke R.N. Earache 4 Clinical Communication Department of Internal Medicine in [address] [address] Slime Reynoso D.O. 4 11:00 AM CDT Nurse Only Department of Internal Medicine in [address] [address] Mi Alberts M.D. Pritzl, Megan G, R.N. Medicare Annual Wellness Visit Subsequent 4 9:30 AM CDT Ancillary Procedure Department of Ophthalmology in [address] [address] Richy Cruz M.D. Cataract Senile Nuclear Sclerosis Bilateral (Primary Dx); Membrane Macula Epiretinal Right 4 10:15 AM CDT Comprehensive Visit Department of Ophthalmology in [address] [address] Richy Cruz M.D. Cataract Senile Nuclear Sclerosis Bilateral (Primary Dx); Membrane Macula Epiretinal Right; Dry Eye Syndrome Bilateral 4 9:30 AM CDT Office Visit Department of Family Medicine in [address] [address] Maricruz Acevedo APRN C.N.P. Alysia Lazo, D., BCACP, R.Ph. Parkinsonism Unspecified (HCC); Medication Management Issue; Polypharmacy 4 9:34 AM CDT - 4 11:59 PM CDT Hospital Encounter Department of Laboratory Medicine in [place], [place] [address] [place] [address] Raz Montemayor D.O. 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) Discharge Disposition: Home or Self Care 4 11:00 AM CDT Telemedicine Department of Urology in [place], [place] [address] [place] [address] Maricruz Acevedo APRN, C.N.PJorgito Parkinsonism Unspecified (HCC) (Primary Dx); Urinary Urge Incontinence 4 [facility] [address] [facility] [address] [place] [address] Raz Montemayor D.O. 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) (Primary Dx) 4 1:20 PM CDT - 4 11:59 PM CDT Hospital Encounter Department of Laboratory Medicine in [place], [place] [address] [place] [address] Slime Reynoso, D.OJorgito 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HCC) Discharge Disposition: Home or Self Care 4 Clinical Communication Department of Internal Medicine in [place], [place] [address], [place] [address] Slime Reynoso, D.OJorgito 4 11:00 AM CDT Office Visit Department of Urology in [place], [place] [address], [place] [address] Maricruz Acevedo APRN C.N.PJorgito Overactive Bladder (Primary Dx) 4 Clinical Communication Department of General Surgery in [address] [address] Rob Leyva M.D. 3 10:30 AM BARREL MAKER Office Visit Department of Urology in [address] [address] Maricruz Acevedo APRN, C.N.P. Overactive Bladder (Primary Dx); Parkinsonism Unspecified (HCC) 3 2:00 PM BARREL MAKER Comprehensive Visit Department of Internal Medicine in [address] [address] Haley Mendoza APRN, C.N.P., D.N.P. Gastroesophageal Reflux Disease Without Esophagitis (Primary Dx); Need Vaccine Immunization Tetanus And Diphtheria Toxoids And Pertussis 3 11:00 AM BARREL MAKER Procedure visit Department of Urology in [address] [address] Cy Meyers M.D. Urinary Urge Incontinence; Hypertonic Bladder 3 Orders Only Department of Urology in [address] [address] Maricruz Acevedo APRN, C.N.P. 3 9:50 AM BARREL MAKER - 3 11:59 PM BARREL MAKER Hospital Encounter Department of Laboratory Medicine in [address] [address] Cy Meyers M.D. Urinary Urge Incontinence; Hypertonic Bladder Discharge Disposition: Home or Self Care 3 9:30 AM BARREL MAKER Office Visit Department of Family Medicine in [address] [address] Maricruz Acevedo APRN, C.N.P. Alysia Lazo Pharm.D., BCACP, R.Ph. Medication Management Issue (Primary Dx); Parkinsonism Unspecified (HCC); Polypharmacy 3 3:28 PM BARREL MAKER - 3 4:00 PM BARREL MAKER Hospital Encounter Department of Neurology in [place], [place] [address] [place] [address] Nelile Jones M.D. Sialorrhea (Primary Dx); Parkinsonism Unspecified (HCC) Discharge Disposition: Home or Self Care 3 Clinical Communication Department of Neurology in [place], [place] [address] [place] [address] Nellie Jones M.D. 3 1:45 PM BARREL MAKER Ancillary Procedure Department of Urology 3 1:45 PM BARREL MAKER Procedure visit Department of Urology in [place], [place] [address] [address] Cy Meyers M.D. Hypertonic Bladder (Primary Dx); Urinary Urge Incontinence 3 3:30 PM BARREL MAKER Comprehensive Visit Department of Neurology in [place], [place] [address] [place] [address] Nellie Jones M.D. Parkinsonism Unspecified (HCC) 3 3:15 PM CDT Clinical Communication Virtual Review in [place], [place] [address] [place] [address] 3 9:29 AM CDT - 3 11:59 PM CDT Hospital Encounter Department of Radiology in [place], [place] [address] [place] [address] Melita Thurston P.A.-C., P.A. Pain Knee Right Discharge Disposition: Home or Self Care 3 10:15 AM CDT Comprehensive Visit Department of Orthopedic Surgery in [place], [place] [address] [place] [address] Melita Thurston P.A.-C., P.A. Pain Knee Right (Primary Dx) 3 2:30 PM CDT Immunization Department of Family Medicine, [facility], in [place], [place] [address] [place] [address] 3 Orders Only Department of Urology in [address] [phone] Maricruz Acevedo APRN, C.N.P. Parkinsonism Unspecified (HCC) (Primary Dx) 3 2:00 PM CDT Office Visit Department of Urology in [address] [phone] Maricruz Acevedo APRN, C.N.P. Parkinsonism Unspecified (HCC) (Primary Dx); Urgency Urinary 3 2:40 PM CDT Telemedicine Department of Internal Medicine in [address] [phone] Slime Reynoso D.O. 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HCC) (Primary Dx); 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HCC); Parkinsonism Unspecified (HCC) 3 Documentation Department of Orthopedic Surgery in [address] [address] Apollo Justice M.D. Arthroplasty (1 year Left TKA 07/14/22 Vinh OKS form completion) 3 Clinical Communication Department of Urology in [address] [address] Maricruz Acevedo APRN, C.N.P. Rx Denial (TROSPIUM CHL 20 MG TAB) 3 10:30 AM CDT Comprehensive Visit Department of Urology in [address] [address] Maricruz Acevedo APRN, C.N.PJorgito Urinary Urge Incontinence 3 1:28 PM CDT - 3 11:59 PM CDT Hospital Encounter Department of Laboratory Medicine in [address] [address] Slime eRynoso D.O. 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HCC); 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HCC) Discharge Disposition: Home or Self Care 3 1:25 PM CDT - 3 1:27 PM CDT Hospital Encounter Department of Laboratory Medicine in [address] [address] Slime Reynoso D.O. Urinary Urge Incontinence Discharge Disposition: Home or Self Care 3 Refill Department of Rheumatology in [address] [address] Aure Winters APRN, C.N.P., M.S.N. Med Refill 3 3:30 PM CDT Office Visit Department of Family Medicine, [facility], in [address] [address] Slime Reynoso D.O. Dressel, Brandie L, R.N. Annual Medicare Examination Return (Primary Dx) 3 Clinical Communication Department of Internal Medicine in [address] [address] Slime Reynoso D.O. denied scheduling in [place]; Referral Request (Rheumatology referral) 3 11:00 AM CDT Office Visit Department of Internal Medicine in [address] [address] Slime Reynoso D.O. 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HCC) (Primary Dx); 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HCC); Parkinson Disease (HCC); Sleep Apnea; Urinary Urge Incontinence; 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HCC); Asthma Mild Intermittent With History Of Tobacco Use; History Of Falling; Murmur Heart 3 Orders Only [facility] Slime Reynoso D.O. 3 Refill Department of Community Internal Medicine in [place], [place] [address] [place] [address] Valerie Ch MPAS, P.A.-C. Med Refill 3 3:15 PM CDT Comprehensive Visit Department of Ophthalmology in [place], [place] [address] [place] [phone] Richy Cruz M.D. Cataract Senile Nuclear Sclerosis Bilateral (Primary Dx); Membrane Macula Epiretinal Right; Dry Eye Syndrome Bilateral 3 Refill Department of Neurology in [place], [place] [address] [place] [address] Sylvia Mercado M.D., Ph.D. Med Refill 3 1:30 PM CDT Telemedicine Department of Rheumatology in [place], [place] [address] [address] Aure Winters APRN, C.N.P., M.S.N. 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HCC) (Primary Dx); 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HCC); High Risk Medication; Arthritis Inflammatory (HCC); Sacroiliitis (HCC); Primary Osteoarthritis Multiple Sites 3 9:30 AM BARREL MAKER - 3 11:59 PM BARREL MAKER Hospital Encounter Department of Laboratory Medicine in [place], [place] [address] [place] [address] Aure Winters APRN C.N.P., M.S.N. Arthritis Inflammatory (HCC); Sacroiliitis (HCC); High Risk Medication Discharge Disposition: Home or Self Care 3 Refill Department of Rheumatology in [address] [address] Aure Winters APRN CJorgitoNObi., M.S.N. Med Refill 3 10:30 AM BARREL MAKER Office Visit Department of Orthopedic Surgery in [address] [address] Melita Thurston P.A.KristineC., P.A. Arthroplasty Total Knee Replacement Status Post Left (Primary Dx) 2 1:30 PM BARREL MAKER Office Visit Department of Orthopedic Surgery in [address] [address] Apollo Justice M.D. Arthroplasty Total Knee Replacement Status Post Left (Primary Dx) 2 12:45 PM BARREL MAKER - 2 11:59 PM BARREL MAKER Hospital Encounter Department of Radiology in [address] [address] Apollo Justice M.D. Primary Osteoarthritis Knee Left Discharge Disposition: Home or Self Care 2 Refill Department of Orthopedic Surgery in [address] [address] Aminta Soto P.A.-C., P.A. Med Refill 2 10:30 AM BARREL MAKER Office Visit Department of Orthopedic Surgery in [address] [address] Aminta Soto P.A.-C., P.A. Arthroplasty Total Knee Replacement Status Post Left (Primary Dx) 2 Orders Only Department of Orthopedic Surgery in [address] [address] Apollo Justice M.D. Arthroplasty Total Knee Replacement Status Post Left (Primary Dx) 2 7:01 AM CDT - 2 11:59 PM CDT Hospital Encounter Department of Radiology in [address] [address] Apollo Justice M.D. Arthroplasty Total Knee Replacement Status Post Left Discharge Disposition: Home or Self Care 2 1:48 PM CDT - 2 11:59 PM CDT Hospital Encounter Department of Laboratory Medicine in [address] [address] Slime Reynoso D.O. Hyperkalemia Discharge Disposition: Home or Self Care 2 10:20 AM CDT Lab Department of General Surgery in [address] [address] Apollo Justice M.D. Primary Osteoarthritis Knee Left 2 9:51 AM CDT - 2 11:59 PM CDT Hospital Encounter Department of Laboratory Medicine in [address] [address] Slime Reynoso, D.O. Preoperative Exam Discharge Disposition: Home or Self Care 2 9:50 AM CDT Hospital Encounter Department of Laboratory Medicine in [address] [address] Slime Reynoso, D.O. Preoperative Exam Discharge Disposition: Home or Self Care 2 9:30 AM CDT Office Visit Department of Internal Medicine in [address] [address] Slime Reynoso, D.O. 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HCC) (Primary Dx); Primary Osteoarthritis Knee Left; Sacroiliitis (HCC); 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HCC); Asthma Exercise Induced Bronchospasm (HCC); History Of Falling; Preoperative Exam; Parkinson Disease (HCC); Hyperkalemia 2 2:30 PM CDT Immunization Department of Family Medicine, [facility], in [place], [place] [address] [place] [address] Cedrick Oneill M.D. Discharge Disposition: Home or Self Care 2 Orders Only [facility] Slime Reynoso D.O. 2 Clinical Communication Department of Orthopedic Surgery in [place], [place] [address] [place] [phone] Apollo Justice M.D. SURGERY DATE 2 9:14 AM CDT - 2 11:59 PM CDT Hospital Encounter Department of Radiology in [place], [place] [address] [place] [address] Apollo Justice M.D. Pain Knee Left Discharge Disposition: Home or Self Care 2 10:00 AM CDT Office Visit Department of Orthopedic Surgery in [place], [place] [address] [place] [address] Apollo Justice M.D. Pain Knee Left (Primary Dx); Primary Osteoarthritis Knee Left 2 Refill Department of Internal Medicine in [place], [place] [address] [place] [address] Slime Reynoso, D.O. Med Refill 2 Refill Department of Rheumatology in [place], [place] [address] [place] [address] Aure Winters APRN, C.N.P., M.S.N. Med Refill 2 Episode Changes Division of Rheumatology in [place], [place] [address] [place] [address] Magui Judge M.S.Henry., R.N. 2 10:00 AM CDT - 2 11:59 PM CDT Hospital Encounter Department of Laboratory Medicine in [address] [address] Slime Reynoso D.O. Screening Examination Diabetes Mellitus; Hyperlipidemia Discharge Disposition: Home or Self Care 2 10:45 AM CDT Comprehensive Visit Department of Ophthalmology in [address] [address] Richy Cruz M.D. Myopia Bilateral (Primary Dx); Cataract Senile Nuclear Sclerosis Bilateral 2 11:30 AM CDT Office Visit Department of Internal Medicine in [address] [address] Slime Reynoso, D.O. Hyperlipidemia (Primary Dx); 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HCC); High Risk Medication; Tremor Essential; Parkinson Disease (HCC); Screening Examination Diabetes Mellitus; Pain Knee Left 2 10:30 AM BARREL MAKER Office Visit Department of Rheumatology in [address] [address] Aure Winters APRN, C.N.P., M.S.N. Arthritis Inflammatory (HCC) (Primary Dx); Sacroiliitis (HCC); High Risk Medication; Primary Osteoarthritis Multiple Sites 2 10:10 AM BARREL MAKER Immunization Department of Family Medicine, [facility], in [address] [address] Slime Reynoso, D.O. 2 9:40 AM BARREL MAKER - 2 11:59 PM BARREL MAKER Hospital Encounter Department of Laboratory Medicine in [address] [address] Aure Winters APRN, C.N.P., M.S.N. Sacroiliitis (HCC); 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HCC); Arthritis Inflammatory (HCC); High Risk Medication; 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HCC) Discharge Disposition: Home or Self Care 2 Clinical Communication Department of Internal Medicine in [address] [address] Slime Reynoso, D.O. 2 Orders Only [facility] Slime Reynoso, D.O. 2 Clinical Communication Department of Internal Medicine in [address] [address] Slime Reynoso, D.O. 2 Refill Department of Rheumatology in [address] [address] Aure Winters, Jasmin CHAPAN.Tracey., M.S.N. Med Refill 1 Refill Department of Neurology in [place], [place] [address] [place] [address] Slime Reynoso, D.O. Med Refill 1 11:30 AM CDT Office Visit Department of Internal Medicine in [address] [address] Slime Reynoso, D.O. 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HCC) (Primary Dx); High Risk Medication; Tremor Essential; Parkinson Disease (HCC); History Of Falling; Pain Wrist Left; Pain Knee Left 1 10:00 AM CDT Office Visit Department of Orthopedic Surgery in [address] [address] Apollo Justice M.D. Primary Osteoarthritis Knee Left (Primary Dx) 1 10:10 AM CDT Immunization Department of Family Medicine, [facility], in [address] [address] 1 Orders Only [facility] Aure Whitt M.D. 1 10:00 AM CDT Office Visit Department of Ophthalmology in [address] [address] Richy Cruz M.D. Myopia Bilateral (Primary Dx); Cataract Senile Nuclear Sclerosis Bilateral 1 Refill Department of Rheumatology in [address] [address] Aure Winters APRN, C.N.P., M.S.N. Med Refill 1 9:00 AM CDT Ancillary Procedure Department of Ophthalmology in [address] [address] Richy Cruz M.D. Myopia Bilateral (Primary Dx); Membrane Macula Epiretinal Bilateral 1 Clinical Communication Department of Ophthalmology in [address] [address] Richy Cruz M.D. 1 10:15 AM CDT Comprehensive Visit Department of Ophthalmology in [address] [address] Richy Cruz M.D. Cataract Senile Nuclear Sclerosis Bilateral (Primary Dx); Myopia Bilateral; Membrane Macula Epiretinal Bilateral 1 11:10 AM CDT - 1 11:59 PM CDT Hospital Encounter Department of Laboratory Medicine in [address] [address] Aure Winters APRN, C.N.P., M.S.N. Sacroiliitis (HCC); 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HCC); Arthritis Inflammatory (HCC); High Risk Medication Discharge Disposition: Home or Self Care 1 10:30 AM CDT Office Visit Department of Internal Medicine in [address] [address] Slime Reynoso D.O. Hyperlipidemia (Primary Dx); Parkinson Disease (HCC); Arthritis Rheumatoid (HCC); Sacroiliitis (HCC); History Of Falling; High Risk Medication; 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HCC) 1 3:20 PM CDT Immunization Department of [facility], [address] [address] Eugene Bingham D.O. Encounter For COVID-19 Vaccine Immunization 1 9:00 AM CDT Comprehensive Visit Department of Nutrition in [address] [address] Slime Reynoso D.O. Terpstra, Caitlin A, RDN, LD Hyperlipidemia 1 10:00 AM BARREL MAKER Immunization Department of [facility], [address] [address] Encounter For COVID-19 Vaccine Immunization (Primary Dx) 1 Orders Only [facility] Aure Whitt M.D. 1 Clinical Communication Department of Internal Medicine in [address] [phone] Slime Reynoso D.O. 1 Clinical Communication Department of Internal Medicine in [address] [phone] Slime Reynoso D.O. 1 Orders Only Department of Internal Medicine in [address] [phone] Slime Reynoso D.O. 1 9:00 AM BARREL MAKER - 1 11:59 PM BARREL MAKER Hospital Encounter Department of Laboratory Medicine in [address] [address] Aure Winters APRN, C.N.P., M.S.N. Sacroiliitis (HCC); 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HCC); Arthritis Inflammatory (HCC); High Risk Medication; Screening Lipid; Screening Examination Diabetes Mellitus; Screening Examination Prostate Cancer Discharge Disposition: Home or Self Care 1 10:30 AM BARREL MAKER Office Visit Department of Rheumatology in [address] [address] Aure Winters APRN, C.N.P., M.S.N. Arthritis Inflammatory (HCC) (Primary Dx); Sacroiliitis (HCC); 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HCC); High Risk Medication; Primary Osteoarthritis Multiple Sites; 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HCC) 1 11:00 AM BARREL MAKER Office Visit Department of Internal Medicine in [address] [address] Slime Reynoso D.O. Parkinson Disease (HCC) (Primary Dx); Arthritis Rheumatoid (HCC); Sacroiliitis (HCC); History Of Falling; Screening Lipid; Screening Examination Diabetes Mellitus; Screening Examination Prostate Cancer 1 Clinical Communication Department of Rheumatology in [address] [phone] Aure Winters APRN, C.N.P., M.S.N. Communication (Labs) 1 Refill Department of Rheumatology in [address] [phone] Aure Winters APRN, C.N.P., M.S.N. Med Refill 0 11:00 AM CDT Immunization Department of [facility], [facility], in [place], [place] [address] [place] [phone] Deanna Candelario M.S.N., R.N. Need Vaccine Immunization Influenza 0 2:00 PM CDT Office Visit Department of Orthopedic Surgery in [place], [place] [address] [phone] Apollo Justice M.D. 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 Parkinson Disease (HCC) (Primary Dx); Tremor Essential 0 2:30 PM CDT Office Visit Department of Orthopedic Surgery in [place], [place] [address] [phone] Melita Thurston P.A.Gillian., P.A. Arthroscopy Knee Status Post (Primary Dx) 0 Orders Only [facility] - [address] [place] [phone] Her, She Yeng Phia 0 Clinical Communication Department of Internal Medicine in [place], [place] [address] [phone] Bernard Ratliff M.D. 0 12:13 PM CDT - 0 11:59 PM CDT Hospital Encounter Department of Laboratory Medicine, [facility], in [place], [place] [address] [place] [phone] Eugene Bingham D.O. Discharge Disposition: Home or Self Care 0 Refill Department of Rheumatology in [place], [place] [address] [place] [address] Aure Winters APRN, C.N.P., M.S.N. Med Refill 0 Clinical Communication Department of Internal Medicine in [place], [place] [address] [place] [phone] Slime Reynoso D.O. 0 External Outreach Department of Internal Medicine in [address] [phone] Eugene Bingham D.O. Infection Upper Respiratory (Primary Dx) 0 12:00 PM CDT - 0 11:59 PM CDT Hospital Encounter Department of Cardiovascular Diseases in [place], [place] [address] [place] [address] Bernard Ratliff M.D. Murmur Heart Discharge Disposition: Home or Self Care 0 9:50 AM CDT - 0 11:59 AM CDT Hospital Encounter Department of Laboratory Medicine in [place], [place] [address] [place] [phone] Apollo Justice M.D. 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, in [place], [place] [address] [place] [phone] Bernard Ratliff M.D. COVID Nurse Line 0 2:00 PM CDT Office Visit Department of Family Medicine, [facility], in [place], [place] [address] [place] [phone] Bernard Ratliff M.D. 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 SURGERY DATE (LEFT KNEE ARTHROSCOPY PARTIAL MEDIAL MENISECTOMY AND PLM ) 0 11:05 AM CDT - 0 11:59 PM CDT Hospital Encounter Department of Radiology in [address] [phone] Apollo Justice M.D. Pain Knee Left Discharge Disposition: Home or Self Care 0 11:00 AM CDT Office Visit Department of Orthopedic Surgery in [address] [phone] Apollo Justice M.D. Pain Knee Left (Primary Dx); Derangement Posterior Horn Medial Meniscus Due To Old Tear Or Injury Left Knee 0 3:37 PM CDT - 0 11:59 PM CDT Hospital Encounter Department of Radiology in [address] [phone] Apollo Justice M.D. Pain Knee Left Discharge Disposition: Home or Self Care 0 1:00 PM CDT Comprehensive Visit Department of Orthopedic Surgery in [address] [phone] Apollo Justice M.D. Pain Knee Left 0 Clinical Communication Department of Orthopedic Surgery in [address] [phone] Apollo Justice M.D. COVID Inquiry 0 Orders Only Department of Internal Medicine in [address] [address] Slime Reynoso D.O. Pain Knee Left (Primary Dx) 0 10:15 AM CDT - 0 11:59 PM CDT Hospital Encounter Department of Radiology in [address] [phone] Slime Reynoso D.O. Pain Knee Left Discharge Disposition: Home or Self Care 0 Clinical Communication Department of Neurology in [place], [place] [address] [place] [address] Cheng Carrasco M.D. Covid Screening 04-15-20 0 11:25 AM CDT - 0 11:59 PM CDT Hospital Encounter Department of Laboratory Medicine in [address] [phone] Slime Reynoso D.O. Arthritis Rheumatoid (HCC) Discharge Disposition: Home or Self Care 0 10:30 AM CDT Office Visit Department of Internal Medicine in [address] [phone] Slime Reynoso D.O. Pain Knee Left (Primary Dx); Parkinson Disease (HCC); Arthritis Rheumatoid (HCC); 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HCC); Mass Knee Left 0 Refill Department of Internal Medicine in [address] [phone] Slime Reynoso D.O. Med Refill 0 10:00 AM CDT - 0 11:59 PM CDT Hospital Encounter Department of Laboratory Medicine in [address] [phone] Aure Winters APRN, C.N.P., M.S.N. Arthritis Inflammatory (HCC); 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HCC); Sacroiliitis (HCC); 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HCC); High Risk Medication; Arthritis Rheumatoid (HCC) Discharge Disposition: Home or Self Care 0 Clinical Communication Department of Internal Medicine in [address] [phone] Slime Reynoso D.O. 0 Clinical Communication Department of Internal Medicine in [address] [address] Slime Reynoso D.O. 0 3:30 PM CDT Telemedicine Department of Internal Medicine in [address] [address] Slime Reynoso, D.O. Arthritis Rheumatoid (HCC) (Primary Dx); Sacroiliitis (HCC); 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HCC); High Risk Medication 0 Clinical Communication Department of Internal Medicine in [address] [phone] Slime Reynoso, D.O. 0 Orders Only Department of Internal Medicine in [address] [phone] Slime Reynoso, D.O. Parkinson Disease (HCC) (Primary Dx) 0 Refill Department of Rheumatology in [address] [phone] Aure Winters APRN, C.N.P., M.S.N. Med Refill 0 Clinical Communication Department of Internal Medicine in [address] [phone] Slime Reynoso D.O. 0 12:45 PM BARREL MAKER Office Visit Department of Rheumatology in [address] [phone] Aure Winters APRN, C.N.Daija, M.S.N. Arthritis Inflammatory (HCC) (Primary Dx); 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HCC); Sacroiliitis (HCC); 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HCC); High Risk Medication; Primary Osteoarthritis Multiple Sites 9 Clinical Communication Department of Internal Medicine in [address] [phone] Slime Reynoso D.O. 9 10:20 AM BARREL MAKER - 9 11:59 PM BARREL MAKER Hospital Encounter Department of Laboratory Medicine in [address] [phone] Aure Winters APRN, C.N.P., M.S.N. 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HCC); Sacroiliitis (HCC); Arthritis Inflammatory (HCC); High Risk Medication Discharge Disposition: Home or Self Care 9 2:30 PM BARREL MAKER Office Visit Department of Internal Medicine in [address] [phone] Slime Reynoso D.O. Parkinson Disease (HCC) (Primary Dx) 9 11:30 AM BARREL MAKER Office Visit Department of Internal Medicine in [address] [phone] Slime Reynoso D.O. Parkinson Disease (HCC) (Primary Dx); 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HCC); Sacroiliitis (HCC); Loss Memory Short Term; Pain Low Back 9 Refill Department of Rheumatology in [address] [phone] Aure Winters APRN, C.N.P., M.S.N. Med Refill 9 9:54 AM CDT - 9 3:41 PM CDT Hospital Encounter Department of Radiology in [place], [place] [address] [place] [address] Bernard Vázquez M.D. Radiculopathy Lumbosacral 9 Abstract [place], [place] [address] [place] [address] Provider, Historical 9 Documentation Department of Neurology in [place], [place] [address] [place] [address] Cathy Krishnamurthy M.D. 9 8:59 AM CDT - 9 9:51 AM CDT Hospital Encounter Department of Laboratory Medicine and Pathology, [place], [place] [address] [place] [address] Cathy Krishnamurthy M.D. Tremor; Abnormal Gait Non Orthopedic; Tremor Parkinson's (HCC) Discharge Disposition: Home or Self Care 9 1:22 PM CDT - 9 11:59 PM CDT Hospital Encounter Department of Radiology in [place], [place] [address] [place] [address] Cathy Krishnamurthy M.D. Discharge Disposition: Home or Self Care 9 9:52 AM CDT - 9 1:21 PM CDT Hospital Encounter Department of Radiology, [facility] in [place], [place] [address] [place] [address] Cathy Krishnamurthy M.D. Tremor; Abnormal Gait Non Orthopedic; Tremor Parkinson's (HCC) Discharge Disposition: Home or Self Care 9 10:59 AM CDT - 9 11:59 PM CDT Hospital Encounter Department of Radiology in [place], [place] [address] [place] [address] Bernard Vázquez M.D. Effusion Knee Left; Pain Knee Left Discharge Disposition: Home or Self Care 9 2:35 PM CDT Ancillary Procedure Department of Physical Medicine and Rehab 9 1:30 PM CDT Procedure visit Department of Physical Medicine and Rehabilitation in [place], [place] [address] [phone] Bernard Vázquez M.D. Myalgia (Primary Dx); Effusion Knee Left; Pain Knee Left; Pain Lumbar Myofascial 9 1:15 PM CDT Comprehensive Visit Department of Physical Medicine and Rehabilitation in [place], [place] [address] [phone] Bernard Vázquez M.D. Radiculopathy Lumbosacral (Primary Dx); Pain Low Back; Effusion Knee Left; Pain Knee Left; Myalgia; Pain Lumbar Myofascial 9 2:00 PM CDT Office Visit Department of Internal Medicine in [place], [place] [address] [phone] Slime Reynoso, D.OJorgito Screening Colon Cancer Average Risk (Primary Dx); Need Vaccine Immunization Shingles Zoster; Iliotibial Band Syndrome Left; Bursitis Hip Left 9 Abstract [place], [place] [address] [place] [address] Provider, Historical 9 Clinical Communication Department of Internal Medicine in [place], [place] [address] [phone] Slime Reynoso, D.O. 9 Clinical Communication Department of Neurology in [place], [place] [address] [place] [address] Cathy Krishnamurthy M.D. 9 10:30 AM CDT Comprehensive Visit Department of Neurology in [place], [place] [address] [place] [address] Cathy Krishnamurthy M.D. Tremor Parkinson's (HCC) (Primary Dx); Tremor; Abnormal Gait Non Orthopedic; Loss Memory Short Term 9 Clinical Communication Department of Internal Medicine in [address] [address] Slime Reynoso D.O. 9 11:00 AM CDT - 9 11:11 AM CDT Hospital Encounter Department of Laboratory Medicine in [address] [address] Slime Reynoso D.O. Abnormal Gait Non Orthopedic; High Risk Medication Discharge Disposition: Home or Self Care 9 11:12 AM CDT - 9 11:59 PM CDT Hospital Encounter Department of Radiology in [address] [address] Slime Reynoso D.O. Pain Low Back Discharge Disposition: Home or Self Care 9 11:12 AM CDT - 9 11:59 PM CDT Hospital Encounter Department of Radiology in [address] [address] Slime Reynoso D.O. Tremor; Abnormal Gait Non Orthopedic; Loss Memory Short Term Discharge Disposition: Home or Self Care 9 Clinical Communication Department of Internal Medicine in [address] [phone] Slime Reynoso D.O. 9 10:02 AM CDT - 9 11:59 PM CDT Hospital Encounter Department of Laboratory Medicine in [address] [address] Slime Reynoso D.O. Tremor Essential Discharge Disposition: Home or Self Care 9 Abstract [facility] [place], [place] [address] [address] Provider, Historical 9 1:00 PM CDT Office Visit Department of Family Medicine, [facility], in [place], [place] [address] [place] [phone] Nancy Ledezma R.N. Annual Medicare Examination Return (Primary Dx) 9 2:30 PM CDT Comprehensive Visit Department of Internal Medicine in [address] [address] Slime Reynoso D.O. Tremor (Primary Dx); Pain Low Back; Abnormal Gait Non Orthopedic; 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HCC); Arthritis Inflammatory (HCC); Loss Memory Short Term; High Risk Medication; Health Maintenance Examination Adult 9 Refill Department of Rheumatology in [address] [address] Aure Winters APRN C.N.P., M.S.N. Med Refill 8 1:30 PM BARREL MAKER Office Visit Department of Rheumatology in [address] [phone] Aure Winters APRN C.N.P., M.S.N. 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HCC) (Primary Dx); Sacroiliitis (HCC); Arthritis Inflammatory (HCC); High Risk Medication; Primary Osteoarthritis Multiple Sites 8 Clinical Communication Department of Family Medicine, [facility], in [place], [place] [address] [place] [phone] Unassigned, Pcp 8 9:57 AM BARREL MAKER - 8 11:59 PM BARREL MAKER Hospital Encounter Department of Laboratory Medicine [place] [address] [place] [address] Aure Winters APRN, C.NLucila, M.S.N. Sacroiliitis (HCC); 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HCC); Arthritis Inflammatory (HCC); High Risk Medication Discharge Disposition: Home or Self Care 8 Refill Department of Rheumatology in [address] [phone] Aure Winters APRN, C.N.PJorgito, M.S.N. Med Refill 8 Refill Department of Rheumatology in [address] [phone] Aure Winters APRN, C.N.Daija, M.S.N. Med Refill 8 11:00 AM CDT Immunization Department of Family Medicine, [facility], in [place], [place] [address] [place] [address] Carine Galvan APRN, C.N.PJorgito, D.N.PShanell Joya L.P.N. Need Vaccine Immunization (Primary Dx) 8 11:12 AM CDT - 8 11:59 PM CDT Hospital Encounter Department of Laboratory Medicine in [place], [place] [address] [address] Aure Winters APRN, C.N.PJorgito, M.S.N. Sacroiliitis (HCC); 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HCC); Arthritis Inflammatory (HCC); High Risk Medication Discharge Disposition: Home or Self Care 8 2:30 PM CDT Office Visit Department of Rheumatology in [address] [phone] Aure Winters APRN, C.N.PJorgito, M.S.N. 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HCC) (Primary Dx); Sacroiliitis (HCC); Arthritis Inflammatory (HCC); High Risk Medication; Primary Osteoarthritis Multiple Sites; Tinea Corporis 8 1:53 PM CDT - 8 11:59 PM CDT Hospital Encounter Department of Laboratory Medicine in [place], [place] [address] [address] Aravind Burns M.D. 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HCC) Discharge Disposition: Home or Self Care 8 8:45 AM BARREL MAKER Office Visit Department of Rheumatology in [place], [place] [address] [address] Aravind Burns M.D. 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HCC) (Primary Dx) 8 4:00 PM BARREL MAKER - 8 11:59 PM BARREL MAKER Hospital Encounter Department of Laboratory Medicine in [place], [place] [address] [address] Aravind Burns M.D. 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HCC) Discharge Disposition: Home or Self Care 7 Abstract Department of Family Medicine, [facility], in [place], [place] [address] [address] Provider, Historical 7 Orders Only Department of Infusion Therapy in [place], [place] [address] [address] Elen Herrera, RMikey 7 Orders Only Division of Rheumatology in [place], [place] [address] [place] [address] Aravind Burns M.D. 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HCC) 7 4:13 PM CDT - 7 11:59 PM CDT Hospital Encounter [facility] Aravind Burns M.D. 7 10:44 AM CDT - 7 11:59 PM CDT Hospital Encounter [facility] [place] Carine Galvan, SAMMI, C.N.P., D.N.P. 7 11:18 AM CDT - 7 11:59 PM CDT Hospital Encounter [facility] Aravind Burns M.D. 7 7:58 AM CDT - 7 11:59 PM CDT Hospital Encounter [facility] Aravind Burns M.D. 7 10:18 AM CDT - 7 9:54 AM CDT Hospital Encounter [facility] Kiran Cat M.D. 7 11:35 AM CDT - 7 11:59 PM CDT Hospital Encounter [facility] Kiran Cat M.D. 7 12:12 PM CDT - 7 11:59 PM CDT Hospital Encounter [facility] Aravind Burns M.D. 7 9:53 AM BARREL MAKER - 7 11:59 PM BARREL MAKER Hospital Encounter [facility] Kiran Cat M.D. 7 2:05 PM BARREL MAKER - 7 11:59 PM BARREL MAKER Hospital Encounter [facility] Kiran Cat M.D. 7 9:47 AM BARREL MAKER - 7 11:59 PM BARREL MAKER Hospital Encounter [facility] Aravind Burns M.D. 6 11:17 AM BARREL MAKER - 6 11:59 PM BARREL MAKER Hospital Encounter [facility] Aravind Burns M.D. 6 6:11 AM CDT - 6 11:00 PM CDT Hospital Encounter [facility] T[facility] Aravind Burns M.D. 6 10:02 AM CDT - 6 11:59 PM CDT Hospital Encounter [facility] Aravind Burns M.D. 6 1:59 PM CDT - 6 11:59 PM CDT Hospital Encounter [facility] Kiran Cat M.D. 6 1:02 PM CDT - 6 11:59 PM CDT Hospital Encounter [facility] Aravind Burns M.D. 6 8:43 AM CDT - 6 11:59 PM CDT Hospital Encounter [facility] Aravind Burns M.D. 6 11:20 AM CDT - 6 11:59 PM CDT Hospital Encounter [facility] Aravind Burns M.D. 6 2:43 PM CDT - 6 11:59 PM CDT Hospital Encounter [facility] Kiran Cat M.D. 6 9:43 AM CDT - 6 11:59 PM CDT Hospital Encounter [facility]TH[facility] Zainab Lugo M.D. 6 8:55 AM CDT - 6 11:59 PM CDT Hospital Encounter [facility] Aravind Burns M.D. 6 9:53 AM CDT - 6 11:59 PM CDT Hospital Encounter [facility] XRAY Aravind Burns M.D. 6 10:08 AM CDT - 6 11:59 PM CDT Hospital Encounter [facility] Aravind Burns M.D. 6 8:10 AM CDT - 6 11:59 PM CDT Hospital Encounter [facility] Alicia Patel, SAMMI, C.N.P. 6 6:57 AM CDT - 6 11:30 AM CDT Hospital Encounter [facility] Zainab Lugo M.D. 6 10:57 AM CDT - 6 11:59 PM CDT Hospital Encounter [facility] Aravind Burns M.D. 6 10:41 AM BARREL MAKER - 6 11:59 PM BARREL MAKER Hospital Encounter [facility] Kiran Cat M.D. 6 11:16 AM BARREL MAKER - 6 11:59 PM BARREL MAKER Hospital Encounter [facility] Kiran Cat M.D. 6 9:19 AM BARREL MAKER - 6 11:59 PM BARREL MAKER Hospital Encounter [facility] Kiran Cat M.D. 6 9:01 AM BARREL MAKER - 6 11:59 PM BARREL MAKER Hospital Encounter [facility]TR[facility] Kiran Cat M.D. 6 12:41 PM BARREL MAKER - 6 11:59 PM BARREL MAKER Hospital Encounter [facility] Zainab Mcleod M.D. 6 11:01 AM BARREL MAKER - 6 11:59 PM BARREL MAKER Hospital Encounter [facility] Schuyler Sandhu M.D. 6 4:06 PM BARREL MAKER - 6 11:59 PM BARREL MAKER Hospital Encounter [facility] Aravind Burns M.D. 6 2:13 PM BARREL MAKER - 6 11:59 PM BARREL MAKER Hospital Encounter [facility] Aravind Burns M.D. 5 10:19 AM CDT - 5 11:59 PM CDT Hospital Encounter [facility] Zainab Lugo M.D. 5 1:10 PM CDT - 5 11:59 PM CDT Hospital Encounter [facility] Zainab Mcleod M.D. Allergies Active Allergy Reactions Criticality Noted Date Comments Levofloxacin Myalgia Medium 10/01/2019 Tendon injury Medications cholecalciferol (VITAMIN D3) 50 mcg (2,000 Unit) capsule Take 1 capsule by mouth daily. 016 Active omega-3 fatty acids-fish oil 300-1,000 mg capsule Take 1,200 mg by mouth daily. Patient takes 1-2 times daily. Active milk thistle 175 mg tablet Take 175 mg by mouth daily. Active turmeric (CURCUMIN MISC) Take 750 mg by mouth 2 (two) times a day. Active ascorbic acid, vitamin C, (VITAMIN C) 500 mg tablet Take 1,000 mg by mouth daily. Active levocarnitine HCl (SBNHIZ-S-MTDGANX NE MISC) Take 500 mg by mouth. Active aspirin 81 mg chewable tabletIndications :Presence Of Left Artificial Knee Joint Take 1 tab twice daily until 08/15/22 then transition back to 1 tab PO daily 40 tablet Active Additional Information Patient not taking.Reported on 01/29/2025 acetylcysteine 500 mg capsule Take 2 tablets by mouth daily. Active sildenafiL (VIAGRA) 100 mg tablet Take 1 tablet (100 mg total) by mouth daily as needed for erectile dysfunction. Can use half tablet to start, maximum dose 100 mg 10 tablet 3 Active HERBAL DRUGS ORAL Take 600 mg by mouth daily. Alpha GPC Active LUTEIN ORAL Take 8,800 mcg by mouth daily. Active multivitamin-mine rals (ICAPS PLUS) tablet Take 1 tablet by mouth daily. Active TAURINE ORAL Take 500 mg by mouth daily. Active BERBERINE CHLORIDE ORAL Take 400 mg by mouth daily. Active methylsulfonylmet hane (MSM ORAL) Take 1 g by mouth daily. Active TYROSINE ORAL Take 350 mg by mouth daily. N-Acetyl L-Tyrosine Active magnesium 200 mg tablet Take 1 tablet by mouth every morning. Plus 2 tabs at evening; Magtein (magnesium L-threonate) Active NICOTINAMIDE MONONUCLEOTIDE ORAL Take 250 mg by mouth daily. Active fluticasone propionate (Flonase) 50 mcg/actuation nasal sprayIndications: Acute Recurrent Maxillary Sinusitis Administer 2 sprays into each nostril daily. 16 g 5 Active Additional Information Patient taking differently:2 spray each nostril Daily,PRN, Reported on 01/29/2025 carbidopa-levodop a (Sinemet) 25-100 mg per tablet TAKE TWO TABLETS BY MOUTH THREE TIMES DAILY. INCREASE BY ONE-HALF TABLET THREE TIMES DAILY EVERY WEEK PER MED SCHEDULE TO A MAX OF THREE TABLETS BY MOUTH THREE TIMES DAILY. 270 tablet Active carbidopa-levodop a (Sinemet) 25-100 mg per tablet Take 2 tablets by mouth 3 (three) times a day. 540 tablet 3 025 2025 Active methotrexate (TrexalL) 2.5 mg tabletIndications :Sacroiliitis,Spo ndylitis Ankylosing (HCC),Arthritis Inflammatory (HCC),High Risk Medication TAKE 10 TABLETS BY MOUTH ONCE WEEKLY 40 tablet Active Eliquis 5 mg tablet TAKE TWO TABLETS BY MOUTH TWICE A DAY FOR 7 DAYS THEN TAKE ONE TABLET BY MOUTH TWICE A DAY THEREAFTER 025 Active Research IRB [id number] n-palmitoylethano lamide 400 mg or placebo (PEA) capsule Take by mouth daily. Active omeprazole (PriLOSEC) [address] capsule Take 1 capsule (20 mg total) by mouth daily before morning meal. 90 capsule 3 Active WesTab One 2.5-25-1 mg per tablet TAKE ONE TABLET BY MOUTH EVERY DAY 90 tablet 3 Active folic acid-vitamin B6,B12 (Folbee) 2.5-25-1 mg per tablet Take 1 tablet by mouth daily. 2024 Discontinued Active Problems Problem Noted Date Diagnosed Date Asthma Mild Intermittent With History Of Tobacco Use 01/29/2025 Thrombosis Deep Vein Personal History 01/29/2025 Overview (01/29/2025): Diagnosed at [facility] October 2024. Patient was started on Eliquis at this time. Stenosis Aortic Valve Acquired 01/29/2025 Mckenzie's Esophagus 01/29/2025 Overview (01/29/2025): He had an upper endoscopy completed Sep 2023 with evidence of Mckenzie's esophagus without dysplasia. The recommendation is to repeat upper endoscopy in 3 years. He will be due for this in 2026. I would recommend he take daily PPI. 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 Arthritis Inflammatory 10/01/2015 Overview (01/31/2018): Connected to the Ankylosing Spondylitis/Sacroiliitis. 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 Asthma NOS 11/25/2015 06/18/2024 Overview (02/13/2017): Asthma NOS Sleep Apnea Unspecified 09/24/201104/2025 Immunizations Immunization Administration Dates Next Due H1N1 All Forms 09/10/2009 HZV (ZOSTAVAX) 08/27/2013 Influenza TIV (IM) 07/17/2024,07/28/2010 Influenza high dose QV(65 ye ars or older) (PF) 07/11/2023,07/21/2021,06/29/2020 Influenza, Quadrivalent, Adj uvanted, Preservative Free 06/20/2022 Influenza, Unspecified 06/21/2017,09/06/2016,11/2015 PCV13 11/25/2015 PPSV23 08/13/2013 RSV: respiratory syncytial v irus (ABRYSVO) bivalent vaccine 07/17/2024 RZV (SHINGRIX) 04/14/2020,04/29/2019 SARS-COV-2 (COVID-19) - MODE RNA (12 YEARS AND OLDER) Fall Seasonal 01/29/2025,07/11/2023 SARS-COV-2 (COVID-19) - MODE RNA BIVALENT(Discontinued) 06/21/2022 SARS-COV-2 (COVID-19) - MODERNA(Discontinued) 11/01/2021,05/18/2021,12/24/2020,2020 Td (Adult), adsorbed 08/23/2004 Tdap 08/28/2023,08/13/2013 influenza trivalent high dos e (HD)(PF) 07/31/2019,07/10/2018 influenza trivalent vaccine (6 months and older)(PF) 07/08/2013 Family History Medical History Relation Name Comments Essential tremor. Aunt Marsha Pablo She was my great Aunt. So, I always saw as having the condition. Mckenzie esophagus Brother 1 Keron Yun Esophageal cancer Brother 1 Keron Yun He was tr eated for it @ [facility] in [place], [place]. Hernia Brother 2 Bogdan cervical spine surgery Brother 2 Bogdan Mckenzie esophagus Father Eugene Esophageal stricture Father Eugene Other cancer Father Eugene bladder Prostate cancer Father Eugene Stroke Father Eugene Parkinson disease Father's Brother Apollo Parkinsonism Father's Brother Apollo Breast cancer Mother Kellie Macular degeneration Mother Kellie Aortic aneurysm Other [place] Breast cancer Other [place] Essential tremor. Sister 1 Abi No Known Problems Sister 2 Joanie Glaucoma Neg Hx Retinal degeneration Neg Hx Retinal detachment Neg Hx Strabismus Neg Hx Relation Name Status Comments Aunt Marsha Pablo Brother 1 Keron Yun Alive Brother 2 Bogdan Alive Father Eugene Father's Brother Apollo Mother Kellie Other Fl[address] Sister 1 Abi Alive Sister 2 Joanie Alive Social History Smoking Status as of 03/10/2025 Tobacco Use Types Packs/Day Years Used Date Smoking Tobacco: Never Assessed [facility] Utilities Answer Date Recorded In the past 12 months has e [employer], gas, oil, or water [employer] threatened to shut off services in your [...] declined 12/11/2022 How often do you attend cheondoism or denominational serv ices? Never 12/11/2022 Do you belong to any clubs o r organizations such as cheondoism groups, unions, fraternal or athletic groups, or [...] Answer Date Recorded PHQ-2 Score 2 10/25/2024 [facility] - Occupational Stress [...] your living situation today? I have a [facility] place to live 05/08/2024 Education Answer Date Recorded What is the highest level of school you have completed or the highest degree you have received? Some college, no degree 03/06/2019 Sex and Gender Information Value Date Recorded Sex Assigned at Male 10/15/2017 4:59 PM [employer]REL [employer] Legal Sex Male 6:35 AM [employer]REL [employer] Gender Identity Male 06/16/2020 8:28 AM CDT Sexual Orientation Straight 06/16/2020 8: 28 AM CDT Last Filed Vital Signs Vital Sign Reading Time Taken Comments Blood Pressure 120/75 01/29/2025 7:[address] Pulse 68 01/29/2025 7:44 AM CDT regul ar Temperature 36.1 C (97 F) 01/29/2025 7:44 AM CDT Respiratory Rate 16 01/29/2025 7:44 AM CDT Oxygen Saturation 98% 08/28/2023 1:49 PM BARREL MAKER Inhaled Oxygen Concentration - - Weight 88.8 kg (195 lb 10.6 oz) 01/29/2025 7:44 AM CDT Height 168.4 cm (5' 6.3) 01/29/2025 7:44 AM CDT Body Mass Index 31.3 01/29/2025 7:44 AM CDT Plan of Treatment Upcoming Encounters Date Type Department Care Team (Latest Contact Info) Description 04/03/2025 10:30 AM CDT Ancillary Procedure Department of Ophthalmology in [place], [place] [address] [place] [address] Richy Cruz M.D. [address] [place] [phone] 04/24/2025 9:00 AM CDT Appointment Department of Cardiovascular Diseases in [place], [place] [address] [place] [phone] Valerie Ch MPAS, P.A.-C. [address] [place] [address] Discharge Disposition: Home or Self Care 05/01/2025 8:10 AM CDT Appointment Department of Laboratory Medicine in [place], [place] [address] [place] [address] Valerie Ch MPAS, P.A.-C. [address] [place] [phone] 05/08/2025 1:30 PM CDT Office Visit Department of Family Medicine, [facility], in [address] [phone] Eugene Bingham D.O. [address] [place] [phone] Medical Devices Implanted Type Area Orthotics Prosthetics Technician Device Identifier Shelf Expiration Date Model / Serial / Lot Knee Implant-07/14 Implanted: by Apollo Justice M.D. (Quantity not on file) Knee Implant Left: Knee [employer] / / Procedures Procedure Name Priority Date/Time Associated Diagnosis Comments GLUCOSE, FASTING, S/P Routine 02/03/2025 8:17 AM CDT General Medical Examination Adult LIPID PANEL, S Routine 02/03/2025 8:17 AM CDT General Medical Examination Adult PROSTATE-SPECIFIC AG (PSA) SCRN, S Routine 02/03/2025 8:17 AM CDT General Medical Examination Adult CREATININE WITH EGFR, S/P Routine 01/27/2025 9:53 AM CDT Sacroiliitis 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HCC) Arthritis Inflammatory (HCC) High Risk Medication HEPATIC FUNCTION PANEL, S Routine 01/27/2025 9:53 AM CDT Sacroiliitis 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HCC) Arthritis Inflammatory (HCC) High Risk Medication CBC WITH DIFFERENTIAL, B Routine 01/27/2025 9:53 AM CDT Sacroiliitis 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HCC) Arthritis Inflammatory (HCC) High Risk Medication BOTULINUM TOXIN FOR MOVEMENT DISORDER Routine 12/25/2024 11:00 AM CDT Sialorrhea COMPREHENSIVE METABOLIC PANEL, S/P Routine 10/29/2024 8:45 AM BARREL MAKER Preoperative Exam 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) High Risk Medication CBC WITH DIFFERENTIAL, B Routine 10/29/2024 8:45 AM BARREL MAKER Preoperative Exam 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) High Risk Medication ECG Routine 10/29/2024 8:33 AM BARREL MAKER Preoperative Exam OPTICAL COHERENCE TOMOGRAPHY - MACULA/RETINA - OU - BOTH EYES Routine 09/26/2024 9:34 AM BARREL MAKER Membrane Macula Epiretinal Right DX ANKLE LEFT 3+ VIEWS RAD - Routine (most inpatients and all outpatients) 08/11/2024 11:23 AM BARREL MAKER Pain Ankle Left AUDIOLOGY EVALUATION 08/06/2024 12:00 AM BARREL MAKER US LOWER EXTREMITY VEINS LEFT RAD - Routine (most inpatients and all outpatients) 08/02/2024 4:38 PM BARREL MAKER Swelling Leg Left D-DIMER, P Routine 08/02/2024 3:35 PM BARREL MAKER Swelling Leg Left CREATININE WITH EGFR, S/P Routine 07/25/2024 9:32 AM CDT Arthritis Inflammatory (HCC) ALBUMIN, S/P Routine 07/25/2024 9:32 AM CDT Arthritis Inflammatory (HCC) ALANINE AMINOTRANSFERASE (ALT), S/P Routine 07/25/2024 9:32 AM CDT Arthritis Inflammatory (HCC) ASPARTATE AMINOTRANSFERASE (AST), S/P Routine 07/25/2024 9:32 AM CDT Arthritis Inflammatory (HCC) CBC WITH DIFFERENTIAL, B Routine 07/25/2024 9:32 AM CDT Arthritis Inflammatory (HCC) OPTICAL COHERENCE TOMOGRAPHY - MACULA/RETINA - OU - BOTH EYES Routine 03/21/2024 9:37 AM CDT Membrane Macula Epiretinal Right CREATININE WITH EGFR, S/P Routine 01/31/2024 9:43 AM CDT 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) ALBUMIN, S/P Routine 01/31/2024 9:43 AM CDT 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) ALANINE AMINOTRANSFERASE (ALT), S/P Routine 01/31/2024 9:43 AM CDT 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) ASPARTATE AMINOTRANSFERASE (AST), S/P Routine 01/31/2024 9:43 AM CDT 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) CBC WITH DIFFERENTIAL, B Routine 01/23/2024 1:27 PM CDT 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HCC) OUTSIDE PHOTO Routine 09/27/2023 12:00 AM BARREL MAKER URO CYSTOSCOPY (SPECIFIC PROVIDER) Routine 08/23/2023 11:00 AM BARREL MAKER Urinary Urge Incontinence Hypertonic Bladder BACTERIAL CULTURE, AEROBIC + SUSC, URINE Routine 08/15/2023 10:13 AM BARREL MAKER Urinary Urge Incontinence Hypertonic Bladder BOTULINUM TOXIN FOR MOVEMENT DISORDER Routine 08/08/2023 3:30 PM BARREL MAKER Parkinsonism Unspecified (HCC) UROLOGY IMAGE EXAM Routine 08/06/2023 1:45 PM BARREL MAKER DX KNEE RIGHT 4+ VIEWS RAD - Routine (most inpatients and all outpatients) 07/26/2023 9:44 AM CDT Pain Knee Right ALDOLASE, S Routine 05/15/2023 1:39 PM CDT 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) CREATINE KINASE (CK), S Routine 05/15/2023 1:39 PM CDT 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) CREATININE WITH EGFR, S/P Routine 05/15/2023 1:39 PM CDT 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) ALANINE AMINOTRANSFERASE (ALT), S/P Routine 05/15/2023 1:39 PM CDT 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) ASPARTATE AMINOTRANSFERASE (AST), S/P Routine 05/15/2023 1:39 PM CDT 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) C-REACTIVE PROTEIN (CRP), S/P Routine 05/15/2023 1:39 PM CDT 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) SEDIMENTATION RATE, B Routine 05/15/2023 1:39 PM CDT 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) CBC WITH DIFFERENTIAL, B Routine 05/15/2023 1:39 PM CDT 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) URINALYSIS WITH MICROSCOPIC Routine 05/15/2023 1:32 PM CDT Urinary Urge Incontinence CREATININE WITH EGFR, S/P Routine 11/07/2022 9:54 AM BARREL MAKER Arthritis Inflammatory (HCC) Sacroiliitis (HCC) High Risk Medication ASPARTATE AMINOTRANSFERASE (AST), S/P Routine 11/07/2022 9:54 AM BARREL MAKER Arthritis Inflammatory (HCC) Sacroiliitis (HCC) High Risk Medication CBC WITH DIFFERENTIAL, B Routine 11/07/2022 9:54 AM BARREL MAKER Arthritis Inflammatory (HCC) Sacroiliitis (HCC) High Risk Medication DX KNEE LEFT 3 VIEWS RAD - Routine (most inpatients and all outpatients) 08/25/2022 1:09 PM BARREL MAKER Primary Osteoarthritis Knee Left DX KNEE LEFT 2 VIEWS RAD - Semiurgent (Fast; most ED patients; some inpatients) 07/14/2022 10:07 AM CDT Arthroplasty Total Knee Replacement Status Post Left POTASSIUM, S/P Routine 07/11/2022 1:57 PM CDT Hyperkalemia SARS CORONAVIRUS-2 RNA, V Routine 07/10/2022 10:05 AM CDT Primary Osteoarthritis Knee Left ECG Routine 07/04/2022 9:58 AM CDT Preoperative Exam RENAL FUNCTION PANEL, S Routine 07/04/2022 9:57 AM CDT Preoperative Exam CBC WITH DIFFERENTIAL, B Routine 07/04/2022 9:57 AM CDT Preoperative Exam DX KNEE LEFT STANDING 3 VIEWS RAD - Routine (most inpatients and all outpatients) 06/07/2022 9:34 AM CDT Pain Knee Left LIPID PANEL, S Routine 02/10/2022 10:09 AM CDT Hyperlipidemia GLUCOSE, FASTING, S/P Routine 02/10/2022 10:09 AM CDT Screening Examination Diabetes Mellitus METHOTREXATE LEVEL, S Routine 11/01/2021 9:55 AM BARREL MAKER 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HCC) C-REACTIVE PROTEIN (CRP), S/P Routine 11/01/2021 9:55 AM BARREL MAKER Sacroiliitis (HCC) 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HCC) Arthritis Inflammatory (HCC) High Risk Medication SEDIMENTATION RATE, B Routine 11/01/2021 9:55 AM BARREL MAKER Sacroiliitis (HCC) 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HCC) Arthritis Inflammatory (HCC) High Risk Medication CREATININE WITH EGFR, S/P Routine 11/01/2021 9:55 AM BARREL MAKER Sacroiliitis (HCC) 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HCC) Arthritis Inflammatory (HCC) High Risk Medication ASPARTATE AMINOTRANSFERASE (AST), S/P Routine 11/01/2021 9:55 AM BARREL MAKER Sacroiliitis (HCC) 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HCC) Arthritis Inflammatory (HCC) High Risk Medication CBC WITH DIFFERENTIAL, B Routine 11/01/2021 9:55 AM BARREL MAKER Sacroiliitis (HCC) 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HCC) Arthritis Inflammatory (HCC) High Risk Medication MO ARTHCS ASP/INJ MJR JT WO US Routine 06/29/2021 10:05 AM CDT Primary Osteoarthritis Knee Left OPTICAL COHERENCE TOMOGRAPHY - MACULA/RETINA - OU - BOTH EYES Routine 02/25/2021 8:57 AM CDT Membrane Macula Epiretinal Bilateral C-REACTIVE PROTEIN (CRP), S/P Routine 01/28/2021 11:21 AM CDT Sacroiliitis (HCC) 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HCC) Arthritis Inflammatory (HCC) High Risk Medication SEDIMENTATION RATE, B Routine 01/28/2021 11:21 AM CDT Sacroiliitis (HCC) 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HCC) Arthritis Inflammatory (HCC) High Risk Medication CREATININE WITH EGFR, S/P Routine 01/28/2021 11:21 AM CDT Sacroiliitis (HCC) 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HCC) Arthritis Inflammatory (HCC) High Risk Medication ASPARTATE AMINOTRANSFERASE (AST), S/P Routine 01/28/2021 11:21 AM CDT Sacroiliitis (HCC) 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HCC) Arthritis Inflammatory (HCC) High Risk Medication CBC WITH DIFFERENTIAL, B Routine 01/28/2021 11:21 AM CDT Sacroiliitis (HCC) 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HCC) Arthritis Inflammatory (HCC) High Risk Medication PSA, ULTRASENSITIVE, S Routine 9:15 AM BARREL MAKER Screening Examination Prostate Cancer GLUCOSE, FASTING, S/P Routine 11/01/2020 9:15 AM BARREL MAKER Screening Examination Diabetes Mellitus LIPID PANEL, S Routine 11/01/2020 9:15 AM BARREL MAKER Screening Lipid C-REACTIVE PROTEIN (CRP), S/P Routine 11/01/2020 9:15 AM BARREL MAKER Sacroiliitis (HCC) 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HCC) Arthritis Inflammatory (HCC) High Risk Medication SEDIMENTATION RATE, B Routine 11/01/2020 9:15 AM BARREL MAKER Sacroiliitis (HCC) 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HCC) Arthritis Inflammatory (HCC) High Risk Medication CREATININE WITH EGFR, S/P Routine 11/01/2020 9:15 AM BARREL MAKER Sacroiliitis (HCC) 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HCC) Arthritis Inflammatory (HCC) High Risk Medication ASPARTATE AMINOTRANSFERASE (AST), S/P Routine 11/01/2020 9:15 AM BARREL MAKER Sacroiliitis (HCC) 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HCC) Arthritis Inflammatory (HCC) High Risk Medication CBC WITH DIFFERENTIAL, B Routine 11/01/2020 9:15 AM BARREL MAKER Sacroiliitis (HCC) 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HCC) Arthritis Inflammatory (HCC) High Risk Medication SUTURE REMOVAL Routine 05/25/2020 2:30 PM CDT Arthroscopy Knee Status Post OUTSIDE PHOTO Routine 05/20/2020 9:03 AM CDT SARS CORONAVIRUS-2 RNA, V Routine 05/11/2020 12:48 PM CDT Infection Upper Respiratory (TTE) 2D ECHO DOPPLER COLOR AND CONTRAST Routine 05/07/2020 2:09 PM CDT Murmur Heart SARS CORONAVIRUS-2 RNA, V Routine 05/07/2020 10:52 AM CDT Derangement Posterior Horn Medial Meniscus Due To Old Tear Or Injury Left Knee SARS-COV-2 TOTAL ANTIBODY, SERUM Routine 05/07/2020 10:10 AM CDT Derangement Posterior Horn Medial Meniscus Due To Old Tear Or Injury Left Knee DX KNEE LEFT 3 VIEWS RAD - Routine (most inpatients and all outpatients) 04/28/2020 11:20 AM CDT Pain Knee Left MR KNEE LEFT WITHOUT IV CONTRAST RAD - Routine (most inpatients and all outpatients) 04/27/2020 4:24 PM CDT Pain Knee Left CT KNEE LEFT WITH IV CONTRAST RAD - Routine (most inpatients and all outpatients) 04/22/2020 11:07 AM CDT Pain Knee Left BASIC METABOLIC PANEL, S/P Routine 04/14/2020 12:10 PM CDT Arthritis Rheumatoid (HCC) HEPATIC FUNCTION PANEL, S Routine 04/14/2020 12:10 PM CDT Arthritis Rheumatoid (HCC) CBC WITH DIFFERENTIAL, B Routine 04/14/2020 12:10 PM CDT Arthritis Rheumatoid (HCC) HEPATIC FUNCTION PANEL, S Routine 01/22/2020 10:14 AM CDT Arthritis Rheumatoid (HCC) BASIC METABOLIC PANEL, S/P Routine 01/22/2020 10:14 AM CDT Arthritis Rheumatoid (HCC) CBC WITH DIFFERENTIAL, B Routine 01/22/2020 10:14 AM CDT Arthritis Rheumatoid (HCC) SEDIMENTATION RATE, B Routine 01/22/2020 10:14 AM CDT Arthritis Inflammatory (HCC) 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HCC) Sacroiliitis (HCC) 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HCC) High Risk Medication C-REACTIVE PROTEIN (CRP), S/P Routine 01/22/2020 10:14 AM CDT Arthritis Inflammatory (HCC) 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HCC) Sacroiliitis (HCC) 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HCC) High Risk Medication MISCELLANEOUS SENT OUT LAB TEST Routine 09/10/2019 10:38 AM BARREL MAKER SEDIMENTATION RATE, B Routine 09/10/2019 10:38 AM BARREL MAKER Arthritis Inflammatory (HCC) CREATININE WITH EGFR, S/P Routine 09/10/2019 10:38 AM BARREL MAKER 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HCC) Sacroiliitis (HCC) Arthritis Inflammatory (HCC) High Risk Medication ASPARTATE AMINOTRANSFERASE (AST), S/P Routine 09/10/2019 10:38 AM BARREL MAKER 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HCC) Sacroiliitis (HCC) Arthritis Inflammatory (HCC) High Risk Medication CBC WITH DIFFERENTIAL, B Routine 09/10/2019 10:38 AM BARREL MAKER 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HCC) Sacroiliitis (HCC) Arthritis Inflammatory (HCC) High Risk Medication FL LUMBAR SPINE TRANSFORAMINAL EPIDURAL INJECTION LEFT RAD - Routine (most inpatients and all outpatients) 05/29/2019 10:28 AM CDT Radiculopathy Lumbosacral OUTSIDE PHOTO Routine 05/19/2019 12:00 PM CDT NM BRAIN SPECT DATSCAN RAD - Routine (most inpatients and all outpatients) 05/09/2019 2:24 PM CDT Tremor Abnormal Gait Non Orthopedic Tremor Parkinson's (HCC) THIAMIN (VITAMIN B1), B Routine 05/09/2019 9:12 AM CDT Tremor Abnormal Gait Non Orthopedic Tremor Parkinson's (HCC) PERNICIOUS ANEMIA CASCADE, S Routine 05/09/2019 9:12 AM CDT Tremor Abnormal Gait Non Orthopedic Tremor Parkinson's (HCC) THYROID FUNCTION CASCADE, S Routine 05/09/2019 9:12 AM CDT Tremor Abnormal Gait Non Orthopedic Tremor Parkinson's (HCC) C-REACTIVE PROTEIN (CRP), S/P Routine 05/09/2019 9:12 AM CDT Tremor Abnormal Gait Non Orthopedic Tremor Parkinson's (HCC) COMPREHENSIVE METABOLIC PANEL, S/P Routine 05/09/2019 9:12 AM CDT Tremor Abnormal Gait Non Orthopedic Tremor Parkinson's (HCC) DX KNEE BILATERAL STANDING 2 VIEWS RAD - Routine (most inpatients and all outpatients) 05/07/2019 11:34 AM CDT Effusion Knee Left Pain Knee Left PHYSICAL MEDICINE AND REHAB IMAGE EXAM Routine 04/30/2019 2:18 PM CDT MO US GUIDE PLC NDL Routine 04/30/2019 1:30 PM CDT Myalgia Pain Lumbar Myofascial MO INJ TRIGGER PNT<=2 MUS Routine 04/30/2019 1:30 PM CDT Myalgia Pain Lumbar Myofascial MO ARTHCS ASP/INJ MJR JT W US Routine 04/30/2019 1:30 PM CDT Effusion Knee Left Pain Knee Left MR BRAIN WITHOUT AND WITH IV CONTRAST RAD - Routine (most inpatients and all outpatients) 04/04/2019 12:31 PM CDT Tremor Abnormal Gait Non Orthopedic Loss Memory Short Term MR LUMBAR SPINE WITHOUT IV CONTRAST RAD - Routine (most inpatients and all outpatients) 04/04/2019 12:13 PM CDT Pain Low Back ECG Routine 04/04/2019 11:04 AM CDT Abnormal Gait Non Orthopedic High Risk Medication CREATININE WITH EGFR, S/P Routine 04/02/2019 10:19 AM CDT Tremor Essential EXTM EXTERNAL LAB RESULTS - MANUAL ENTRY Routine 02/27/2019 12:00 PM CDT OCCULT BLOOD - 1, FECAL Routine 02/27/2019 12:00 PM CDT SEDIMENTATION RATE, B Routine 09/11/2018 10:04 AM BARREL MAKER Sacroiliitis (HCC) 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HCC) Arthritis Inflammatory (HCC) High Risk Medication C-REACTIVE PROTEIN (CRP), S/P Routine 09/11/2018 10:04 AM BARREL MAKER Sacroiliitis (HCC) 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HCC) Arthritis Inflammatory (HCC) High Risk Medication CREATININE WITH EGFR, S/P Routine 09/11/2018 10:04 AM BARREL MAKER Sacroiliitis (HCC) 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HCC) Arthritis Inflammatory (HCC) High Risk Medication CBC WITH DIFFERENTIAL, B Routine 09/11/2018 10:04 AM BARREL MAKER Sacroiliitis (HCC) 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HCC) Arthritis Inflammatory (HCC) High Risk Medication ASPARTATE AMINOTRANSFERASE (AST), S/P Routine 09/11/2018 10:04 AM BARREL MAKER Sacroiliitis (HCC) 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HCC) Arthritis Inflammatory (HCC) High Risk Medication ASPARTATE AMINOTRANSFERASE (AST), S/P Routine 05/06/2018 11:19 AM CDT Sacroiliitis (HCC) 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HCC) Arthritis Inflammatory (HCC) High Risk Medication CREATININE WITH EGFR, S/P Routine 05/06/2018 11:19 AM CDT Sacroiliitis (HCC) 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HCC) Arthritis Inflammatory (HCC) High Risk Medication CBC WITH DIFFERENTIAL, B Routine 05/06/2018 11:19 AM CDT Sacroiliitis (HCC) 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HCC) Arthritis Inflammatory (HCC) High Risk Medication CREATININE WITH EGFR, S/P Routine 01/21/2018 1:58 PM CDT 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HCC) CBC WITH DIFFERENTIAL, B Routine 01/21/2018 1:58 PM CDT 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HCC) ASPARTATE AMINOTRANSFERASE (AST), S/P Routine 01/21/2018 1:58 PM CDT 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HCC) SEDIMENTATION RATE, B Routine 10/02/2017 4:34 PM BARREL MAKER 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HCC) C-REACTIVE PROTEIN (CRP), S/P Routine 10/02/2017 4:34 PM BARREL MAKER 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HCC) CREATININE WITH EGFR, S/P Routine 10/02/2017 4:34 PM BARREL MAKER 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HCC) CBC WITH DIFFERENTIAL, B Routine 10/02/2017 4:34 PM BARREL MAKER 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HCC) ASPARTATE AMINOTRANSFERASE (AST), S/P Routine 10/02/2017 4:34 PM BARREL MAKER 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HCC) AUTOMATED DIFFERENTIAL, B Routine 06/28/2017 4:16 PM CDT CBC WITH DIFFERENTIAL, B Routine 06/28/2017 4:16 PM CDT CREATININE WITH EGFR, S/P Routine 06/28/2017 4:16 PM CDT ASPARTATE AMINOTRANSFERASE (AST), S/P Routine 06/28/2017 4:16 PM CDT AUTOMATED DIFFERENTIAL, B Routine 03/26/2017 8:08 AM CDT SEDIMENTATION RATE, B Routine 03/26/2017 8:08 AM CDT CBC WITH DIFFERENTIAL, B Routine 03/26/2017 8:08 AM CDT LIPID PANEL, S Routine 03/26/2017 8:08 AM CDT CREATININE WITH EGFR, S/P Routine 03/26/2017 8:08 AM CDT C-REACTIVE PROTEIN (CRP), S/P Routine 03/26/2017 8:08 AM CDT ASPARTATE AMINOTRANSFERASE (AST), S/P Routine 03/26/2017 8:08 AM CDT AUTOMATED DIFFERENTIAL, B Routine 12/19/2016 12:15 PM CDT CBC WITH DIFFERENTIAL, B Routine 12/19/2016 12:15 PM CDT CREATININE WITH EGFR, S/P Routine 12/19/2016 12:15 PM CDT ASPARTATE AMINOTRANSFERASE (AST), S/P Routine 12/19/2016 12:15 PM CDT THYROID-STIMULATING HORMONE-SENSITIVE (S-TSH) Routine 10/02/2016 10:02 AM BARREL MAKER AUTOMATED DIFFERENTIAL, B Routine 09/19/2016 11:25 AM BARREL MAKER CBC WITH DIFFERENTIAL, B Routine 09/19/2016 11:25 AM BARREL MAKER CREATININE WITH EGFR, S/P Routine 09/19/2016 11:25 AM BARREL MAKER C-REACTIVE PROTEIN (CRP), S/P Routine 09/19/2016 11:25 AM BARREL MAKER ASPARTATE AMINOTRANSFERASE (AST), S/P Routine 09/19/2016 11:25 AM BARREL MAKER AUTOMATED DIFFERENTIAL, B Routine 06/26/2016 10:05 AM CDT CBC WITH DIFFERENTIAL, B Routine 06/26/2016 10:05 AM CDT CREATININE WITH EGFR, S/P Routine 06/26/2016 10:05 AM CDT C-REACTIVE PROTEIN (CRP), S/P Routine 06/26/2016 10:05 AM CDT ASPARTATE AMINOTRANSFERASE (AST), S/P Routine 06/26/2016 10:05 AM CDT HXQUANTIFERON TB-GOLD Routine 04/13/2016 1:04 PM CDT AUTOMATED DIFFERENTIAL, B Routine 03/24/2016 11:24 AM CDT SEDIMENTATION RATE, B Routine 03/24/2016 11:24 AM CDT CBC WITH DIFFERENTIAL, B Routine 03/24/2016 11:24 AM CDT CREATININE WITH EGFR, S/P Routine 03/24/2016 11:24 AM CDT C-REACTIVE PROTEIN (CRP), S/P Routine 03/24/2016 11:24 AM CDT ASPARTATE AMINOTRANSFERASE (AST), S/P Routine 03/24/2016 11:24 AM CDT MR PELVIS WITHOUT AND WITH IV CONTRAST Routine 01/25/2016 12:25 PM CDT DX SACROILIAC JOINTS 3+ VIEWS Routine 01/04/2016 10:13 AM CDT AUTOMATED DIFFERENTIAL, B Routine 12/27/2015 10:10 AM CDT CBC WITH DIFFERENTIAL, B Routine 12/27/2015 10:10 AM CDT CREATININE WITH EGFR, S/P Routine 12/27/2015 10:10 AM CDT C-REACTIVE PROTEIN (CRP), S/P Routine 12/27/2015 10:10 AM CDT ASPARTATE AMINOTRANSFERASE (AST), S/P Routine 12/27/2015 10:10 AM CDT SURGICAL PATHOLOGY Routine 12/07/2015 3:56 PM CDT MYCO CULT RSLT Routine 12/07/2015 8:57 AM CDT FUNGUS CULTURE RSLT Routine 12/07/2015 8:57 AM CDT TING BACT RSLT Routine 12/07/2015 8:57 AM CDT AERO BACT RSLT Routine 12/07/2015 8:57 AM CDT AUTOMATED DIFFERENTIAL, B Routine 12/06/2015 11:07 AM CDT CBC WITH DIFFERENTIAL, B Routine 12/06/2015 11:07 AM CDT CREATININE WITH EGFR, S/P Routine 12/06/2015 11:07 AM CDT ASPARTATE AMINOTRANSFERASE (AST), S/P Routine 12/06/2015 11:07 AM CDT ECG Routine 11/25/2015 10:49 AM BARREL MAKER GLUCOSE, FASTING, S/P Routine 11/23/2015 9:30 AM BARREL MAKER LIPID PANEL, S Routine 11/23/2015 9:30 AM BARREL MAKER US AORTA Routine 11/23/2015 9:00 AM BARREL MAKER AUTOMATED DIFFERENTIAL, B Routine 11/03/2015 11:15 AM BARREL MAKER CBC WITH DIFFERENTIAL, B Routine 11/03/2015 11:15 AM BARREL MAKER CREATININE WITH EGFR, S/P Routine 11/03/2015 11:15 AM BARREL MAKER ASPARTATE AMINOTRANSFERASE (AST), S/P Routine 11/03/2015 11:15 AM BARREL MAKER MR UPPER EXTREMITY NON JOINT UNILATERAL Routine 10/06/2015 8:11 AM BARREL MAKER DX HAND BILATERAL 3 VIEWS Routine 09/28/2015 4:32 PM BARREL MAKER AUTOMATED DIFFERENTIAL, B Routine 09/28/2015 4:30 PM BARREL MAKER CBC WITH DIFFERENTIAL, B Routine 09/28/2015 4:30 PM BARREL MAKER ELECTROPHORESIS, PROTEIN, S Routine 09/28/2015 4:30 PM BARREL MAKER HBC TOTAL AB, SERUM Routine 09/28/2015 4:30 PM BARREL MAKER CALCIUM, TOT, S/P Routine 09/28/2015 4:30 PM BARREL MAKER 25-HYDROXYVITAMIN D2 AND D3, S Routine 09/28/2015 4:30 PM BARREL MAKER URIC ACID, S/P Routine 09/28/2015 4:30 PM BARREL MAKER CREATININE WITH EGFR, S/P Routine 09/28/2015 4:30 PM BARREL MAKER ASPARTATE AMINOTRANSFERASE (AST), S/P Routine 09/28/2015 4:30 PM BARREL MAKER ALANINE AMINOTRANSFERASE (ALT), S/P Routine 09/28/2015 4:30 PM BARREL MAKER IRON AND TOT IRON-BINDING CAPACITY, S/P Routine 09/28/2015 4:30 PM BARREL MAKER FERRITIN, S Routine 09/28/2015 4:30 PM BARREL MAKER HLA-B27, B Routine 09/28/2015 4:30 PM BARREL MAKER HCV AB W/REFLEX TO HCV PCR, S Routine 09/28/2015 4:30 PM BARREL MAKER LYME DISEASE SEROLOGY, S Routine 09/28/2015 4:30 PM BARREL MAKER RHEUMATOID FACTOR, S/P Routine 5 10:27 AM CDT SEDIMENTATION RATE, B Routine 06/09/2015 10:27 AM CDT URIC ACID, S/P Routine 06/09/2015 10:27 AM CDT CYCLIC CITRULLINATED PEPTIDE ABS, IGG, S Routine 06/09/2015 10:27 AM CDT ANTINUCLEAR ABS (TING), S Routine 06/09/2015 10:27 AM CDT C-REACTIVE PROTEIN (CRP), S/P Routine 06/09/2015 10:27 AM CDT DX WRIST RIGHT 3+ VIEWS Routine 06/07/2015 1:48 PM CDT DX WRIST LEFT 3+ VIEWS Routine 5 1:48 PM CDT OUTSIDE MR MSK Routine 01/11/2015 1:23 PM CDT OUTSIDE DX SKELETAL Routine 01/07/2015 9:21 AM CDT OUTSIDE DX SKELETAL Routine 02/22/2012 10:21 AM CDT Results * (ABNORMAL) Lipid Panel (02/03/2025 8:17 AM CDT) Only the most recent of5 resultswithin the time period is included. Triglycerides 183(H) mg/dL 02/03/2025 11:01 AM CDT [...] CDT 02/03/2025 10:30 AM CDT us Valerie Deanovic MPAS, P.A.KristineC. LAB BLOOD ADD-ON Final Result Performing Organization Address City/[facility]/ZIP Co de Phone Number [facility] [address] [place] [address], [facility] [place] [facility] [place] [address] [place] [address] * PSA (Prostate-Specific Antigen) Screen (02/03/2025 8:17 AM CDT) Prostate-Specific Ag 3.9 <=6.5 ng/mL 02/03/2025 11:03 AM CDT OWAT Comment: ----ADDITIONAL INFORMATION---- The testing method is an electrochemiluminescence assay manufactured by [employer] and performed on the Modular or Simona system. Values obtained with different assay methods or kits may be different and cannot be used interchangeably. Test results cannot be interpreted as absolute evidence for the presence or absence of malignant disease. Blood (Blood, Venous) 02/03/2025 8:17 AM CDT 02/03/2025 10:30 AM CDT Vicenta Marinelli.-C. LAB BLOOD ADD-ON Final Result Performing Organization Address [facility] Co de Phone Number [facility] [address] [place] [address], [facility] [place] [address] [place] [address] * (ABNORMAL) Glucose, Fasting (02/03/2025 8:17 AM CDT) Only the most recent of4 resultswithin the time period is included. Glucose, P 112(H) 70 - 100 mg/dL 02/03/2025 11:09 AM CDT OWAT Last Intake 16 hr 02/03/2025 10:32 AM CDT OWAT Blood (Blood, Venous) 02/03/2025 8:17 AM CDT 02/03/2025 10:31 AM CDT us Daija MarinelliA.-C. LAB BLOOD NON ADD -ON Final Result [facility] [address] [place] [address], [place] OWAT [facility] [place] [address] [place] [address] * (ABNORMAL) Hepatic Function Panel (01/27/2025 9:53 AM CDT) Only the most recent of3 resultswithin the time period is included. Bilirubin, Total, P 0.4 0.0 - 1.2 [...] AM CDT 01/27/2025 12:45 PM CDT us Vicenta Marinelli.-C. LAB BLOOD ADD-ON Final Result [facility] [address] [place] [address], [place] [facility] [place] [address], [place] [address] * (ABNORMAL) CBC with Differential, Blood (01/27/2025 9:53 AM CDT) Only the most recent of27 resultswithin the time period is included. Hemoglobin 14.4 13.2 - 16.6 g/dL 01/27/2025 [...] CDT 01/27/2025 9:53 AM CDT us Valerie Ch MPAS, P.A.-C. LAB BLOOD ADD-ON Final Result Performing Organization Address City/State/[facility] Co de Phone Number [facility] [address] [place] [address], [facility] [place] [address] [place] [address] * Creatinine with Estimated GFR (01/27/2025 9:53 AM CDT) Only the most recent of24 resultswithin the time period is included. Creatinine 0.76 0.74 - 1.35 mg/dL 01/27/2025 1:24 PM CDT OWAT Estimated GFR (eGFR) >90 >=60 mL/min/BSA 01/27/2025 1:24 PM CDT OWAT Comment: Estimated GFR calculated using the 2020 CKD_EPI creatinine equation. Blood (Blood, Venous) 01/27/2025 9:53 AM CDT 01/27/2025 12:45 PM CDT us Valerie CANO, P.A.-C. LAB BLOOD ADD-ON Final Result Performing Organization Address [facility] de Phone Number [facility] [address] [place] [address], [facility] [place] [address] [place] [address] * BOTULINUM TOXIN FOR MOVEMENT DISORDER (12/25/2024 11:00 AM CDT) Narrative MMODAL - 12/25/2024 11:00 AM CDT Donny Daniels M.B.B.S. 12/25/2024 11:46 AM Botulinum toxin for movement disorder Performed by: Donny Daniels M.B.B.S. Authorized by: Nellie Jones M.D. us Nellie Jones M.D. NEUROLOGY ORDERABLES Final Result Performing Organization Address [facility] de Phone Number MMODAL NA * (ABNORMAL) Comprehensive Metabolic Panel (10/29/2024 8:45 AM BARREL MAKER) Only the most recent of2 resultswithin the time period is included. Potassium, P 4.5 3.6 - 5.2 mmol/L 10/29/2024 9:36 AM BARREL MAKER OWAT Sodium, P 139 135 - 145 mmol/L 10/29/2024 9:36 AM BARREL MAKER OWAT Chloride, P 101 98 - 107 mmol/L 10/29/2024 9:36 AM BARREL MAKER OWAT Bicarbonate, P 28 22 - 29 mmol/L 10/29/2024 9:36 AM BARREL MAKER OWAT Anion Gap, P 10 7 - 15 10/29/2024 9:36 AM BARREL MAKER OWAT BUN (Blood Urea Nitrogen), P 17 8 - 24 mg/dL 10/29/2024 9:36 AM BARREL MAKER OWAT Creatinine 0.77 0.74 - 1.35 mg/dL 10/29/2024 9:36 AM BARREL MAKER OWAT Estimated GFR (eGFR) >90 >=60 mL/min/BS A 10/29/2024 9:36 AM BARREL MAKER OWAT Comment: Estimated GFR calculated using the 2020 CKD_EPI creatinine equation. Calcium, Total, P 9.7 8.8 - 10.2 mg/dL 10/29/2024 9:36 AM BARREL MAKER OWAT Glucose, P 118 70 - 140 mg/dL 10/29/2024 9:36 AM BARREL MAKER OWAT Protein, Total, P 7.4 6.3 - 7.9 g/dL 10/29/2024 9:36 AM BARREL MAKER OWAT Albumin, P 4.5 3.5 - 5.0 g/dL 10/29/2024 9:36 AM BARREL MAKER OWAT Aspartate Aminotransferase (AST), P 19 8 - 48 U/L 10/29/2024 9:36 AM BARREL MAKER OWAT Alkaline Phosphatase, P 52 40 - 129 U/L 10/29/2024 9:36 AM BARREL MAKER OWAT Alanine Aminotransferase (ALT), P <5(L) 7 - 55 U/L 10/29/2024 10:08 AM BARREL MAKER OWAT Bilirubin, Total, P 0.5 0.0 - 1.2 mg/dL 10/29/2024 9:36 AM BARREL MAKER OWAT Blood (Blood, Venous) 10/29/2024 8:45 AM BARREL MAKER 10/29/2024 8:46 AM BARREL MAKER Marta Martines P.A.-C., M.S. LAB BLOOD ADD-ON Final Result Performing Organization Address [facility] Co de Phone Number [facility] [address] [place] [address], [place] OW[place] [facility] [place] [address] [place] [address] * ECG 12 Lead (10/29/2024 8:33 AM BARREL MAKER) Only the most recent of4 resultswithin the time period is included. Ventricular Rate ECG/Min 61 BPM MUSE MO Interval 178 ms MUSE QRSD Interval 96 ms MUSE QT Interval 382 ms MUSE QTC Interval 384 ms MUSE P Bowman 20 degrees MUSE R Bowman 77 degrees MUSE T Wave Bowman 38 degrees MUSE 10/29/2024 8:33 AM BARREL MAKER 10/29/2024 8:56 AM BARREL MAKER Impressions MUSE - 10/29/2024 8:56 AM BARREL MAKER Normal sinus rhythm Normal ECG When compared with ECG of 04-Jul-2022 09:58, No significant change was found Reviewed by GINETTE Mckenzie Narrative Procedure Note Jonatan Carrillo M.D. - 10/29/2024 IMPRESSION: Normal sinus rhythm Normal ECG When compared with ECG of 04-Jul-2022 09:58, No significant change was found Reviewed by GINETTE Mckenzie Marta Martines P.A.-C., M.S. ECG ORDERABLES Final Result Performing Organization Address [facility] Co de Phone Number MUSE NA * Optical Coherence Tomography - Macula/Retina - OU - Both Eyes (09/26/2024 9:34 AM BARREL MAKER) Narrative OPHTHALMOLOGY IMAGING EXAM - 09/26/2024 9:34 AM BARREL MAKER Right Eye Progression has been stable. Findings include epiretinal membrane. Left Eye Progression has been stable. Findings include epiretinal membrane. us Richy Cruz M.D. OPHTH TOMOGRAPHY Final Result OPHTHALMOLOGY IMAGING EXAM * DX Ankle Left 3+ Views (08/11/2024 11:23 AM BARREL MAKER) Anatomical Region Laterality Modality Lower Extremity, Ankle, Musc uloskeletal RST LOS, Musculoskeletal ARZ LOS, Muskuloskeletal FLA LOS Left Digit al Radiography Impressions 08/11/2024 11:39 AM BARREL MAKER Soft tissue swelling about the ankle, especially medially. No acute fracture or dislocation. 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 Achilles calcaneal spur. Vascular calcifications. Hypertrophic degenerative change at the midfoot. Narrative 08/11/2024 11:39 AM BARREL MAKER EXAM: DX ANKLE LEFT 3+ VIEWS Procedure Note Ovi Talavera M.D. - 08/11/2024 EXAM: DX ANKLE LEFT 3+ VIEWS IMPRESSION: Soft tissue swelling about the ankle, especially medially. No acutefracture or dislocation. 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 Achillescalcaneal spur. Vascular calcifications. Hypertrophic degenerative changeat the midfoot. Marta Martines P.A.-C., M.S. IMG DIAGNOSTIC I MAGING PROCEDURES Final Result * Audiology evaluation (08/06/2024 12:00 AM BARREL MAKER) 08/06/2024 Pilar Rich AUDIOLOGY SERVICES ALEC GARCIA Final Result * US Lower Extremity Veins Left (08/02/2024 4:38 PM BARREL MAKER) Anatomical Region Laterality Modality Lower Extremity, Ultrasound RST LOS, Ultrasound ARZ LOS, Ultrasound FLA LOS Left Ultrasound Impressions 08/02/2024 4:55 PM BARREL MAKER Negative for acute DVT. Narrative 08/02/2024 4:55 PM BARREL MAKER EXAM: US LOWER EXTREMITY VEINS LEFT Exam performed with color and spectral Doppler analysis. COMPARISON: None. FINDINGS: LEFT: Common Femoral Vein: Negative. Profunda Femoral Vein: Negative. Femoral Vein: Negative. Popliteal Vein: Negative. Gastrocnemius Veins: Negative where seen. Soleal Veins: Negative where seen. Posterior Tibial Veins: Negative where seen. Peroneal Veins: Negative where seen. Great Saphenous Vein: Negative where seen. Small Saphenous Vein: Not evaluated. Popliteal Fossa: Negative. Other: Mild soft tissue edema about the ankle. Information on venous thrombosis and management can be found on the [employer] site. Link [email or web address] Procedure Note Navarro Moon M.D. - 08/02/2024 EXAM: US LOWER EXTREMITY VEINS LEFT Exam performed with color and spectral Doppler analysis. COMPARISON: None. FINDINGS: LEFT: Common Femoral Vein: Negative. Profunda Femoral Vein: Negative. Femoral Vein: Negative. Popliteal Vein: Negative. Gastrocnemius Veins: Negative where seen. Soleal Veins: Negative where seen. Posterior Tibial Veins: Negative where seen. Peroneal Veins: Negative where seen. Great Saphenous Vein: Negative where seen. Small Saphenous Vein: Not evaluated. Popliteal Fossa: Negative. Other: Mild soft tissue edema about the ankle. Information on venous thrombosis and management can be found on thePBworks site. [email or web address] IMPRESSION: Negative for acute DVT. Noemi Ernst APRN, C.N.P., D.N.P. [facility] PROCEDU RES Final Result * (ABNORMAL) D-Dimer (08/02/2024 3:35 PM BARREL MAKER) [facility] D-Dimer, P 1109(H) <=500 ng/mL FEU 08/02/2024 3:56 PM BARREL MAKER OWAT Comment: D-dimer concentrations increase with age. For DVT/PE exclusion, in addition to clinical pre-test probability, age-adjusted D-dimer cut-offs are suggested for patients >50 years old. For additional information refer to the D-dimer assay in the Laboratory Test Catalog (LTC) and/or AskMayoExpert (BEBETO). ----ADDITIONAL INFORMATION---- D-dimer values less than or equal to 500 ng/mL fibrinogen equivalent units (FEU) may be used in conjunction with clinical pre-test probability to exclude deep vein thrombosis (DVT) and/or pulmonary embolism (PE). Blood (Blood, Venous) 08/02/2024 3:35 PM BARREL MAKER 08/02/2024 3:39 PM BARREL MAKER Noemi Ernst APRN, C.N.P., D.N.P. LAB BLOOD ADD- ON Final Result Performing Organization Address [facility] Co de Phone Number [facility] [address], [place] [address], [facility] [place] [address] [place] [address] * (ABNORMAL) ALT (Alanine Aminotransferase) (07/25/2024 9:32 AM CDT) Only the most recent of4 resultswithin the time period is included. Alanine Aminotransferase (ALT), P 5(L) 7 - 55 U/L 07/25/2024 1:13 PM CDT [facility] Blood (Blood, Venous) 07/25/2024 9:32 AM CDT 07/25/2024 12:43 PM CDT Slime Esquivel D.O. LAB BLOOD ADD-ON Sonia l Result Performing Organization Address City/[facility]/ZIP Co de Phone Number [facility] [address], [place] [address], [facility] [place] [address] [place] [address] * AST (Aspartate Aminotransferase) (07/25/2024 9:32 AM CDT) Only the most recent of22 resultswithin the time period is included. Aspartate Aminotransferase (AST), P 21 8 - 48 U/L 07/25/2024 1:13 PM CDT OWAT Blood (Blood, Venous) 07/25/2024 9:32 AM CDT 07/25/2024 12:43 PM CDT Slime Mcdermott.Lion. LAB BLOOD ADD-ON Sonia l Result [facility] [address] [place] [address], [place] [facility] [place] [address] [place] [address] * Albumin (07/25/2024 9:32 AM CDT) Only the most recent of2 resultswithin the time period is included. Albumin, P 4.4 3.5 - 5.0 g/dL 07/25/2024 1:13 PM CDT OWAT Blood (Blood, Venous) 07/25/2024 9:32 AM CDT 07/25/2024 12:43 PM CDT Slime Esquivel D.O. LAB BLOOD ADD-ON Sonia l Result Performing Organization Address [facility] Co de Phone Number [facility] [address] [place] [address], [place] OW[place] [facility] [place] [address] [place] [address] * Optical Coherence Tomography - Macula/Retina - OU - Both Eyes (03/21/2024 9:37 AM CDT) Narrative OPHTHALMOLOGY IMAGING EXAM - 03/21/2024 10:05 AM CDT Right Eye Reliability was good. Findings include macular pucker. Left Eye Reliability was good. Findings include macular pucker. us Richy Cruz M.D. OPHTH TOMOGRAPHY Final Result OPHTHALMOLOGY IMAGING EXAM * GI Tract-Outside Photo (09/27/2023 12:00 AM BARREL MAKER) Only the most recent of3 resultswithin the time period is included. Narrative II - 10/02/2023 9:18 AM BARREL MAKER This order has been created and auto-finalized to support the import of outside images. If available, original interpretation can be found on the Media Tab in Chart Review, in Document Viewer, or as an image in QREADS. If a re-interpretation or overread is required please follow defined workflow. us Provider Not In System IMG NON RAD IMAGING PROCE DURES Final Result IINM NA * Cystoscopy (specific provider) (08/23/2023 11:00 AM BARREL MAKER) Narrative Cy Meyers M.D. - 08/23/2023 11:00 AM BARREL MAKER Cy Meyers M.D. 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 PROCEDURE Cystoscopy with injection of intravesical botulinum toxin. (CPT code 95412) MEDICATION Botulinum toxin 100 units mixed with 10 mL of injectable normal saline. The patient received preoperative antibiotics and had a negative urine culture prior to the procedure. After informed consent, and after appropriately identifying the patient with 2 separate parameters, the patient was placed in a modified dorsal lithotomy position. The urethral area was prepped and draped in the usual sterile fashion, then 5 mL of 2% aqueous lidocaine was instilled into the urethra for several minutes. A Adams catheter was placed and the urine drained, then 30 mL of 1% lidocaine solution was instilled into the bladder and allowed to remain in place for 15 to 30 minutes. The lidocaine was drained and the Adams catheter removed. A second 5 mm aqueous lidocaine 2% gel was injected into the urethra. An Mydishu disposable cystoscope was utilized for the procedure. Normal saline was used as an irrigant. A GeneAssessie needle set at 3 mm was used for the procedure. The 100 units of botulinum toxin was injected in equally divided aliquots. Approximately 10 injection sites were utilized in a 3-row pattern, sparing the trigone and the ureteral orifices. After this was completed, the bladder was drained and the procedure concluded. The patient tolerated the procedure well. The patient normally tolerated his procedure well and will return in a few weeks to follow-up. He will be complete his existing antibiotics. Electronically signed by: Cy eMyers M.D. 08/23/23 11:16 AM BARREL MAKER Cy Meyers M.D. UROLOGY ORDERABLES Edited Res ult - Final * (ABNORMAL) Bacterial Culture, Aerobic + Susceptibility, Urine (08/15/2023 10:13 AM BARREL MAKER) Urine Culture Organism present <10,000 cfu/mL(A) 08/16/2023 2:18 PM BARREL MAKER [facility] Urine (Urine, Midstream) 08/15/2023 10:13 AM BARREL MAKER 08/15/2023 2:44 PM BARREL MAKER Comment:Specimen Source Site : Urine Cy Meyers M.D. LAB MICROBIOLOGY - GENERAL OR DERABLES Final Result [facility] [address] [place], [place] [address]TO [facility] [place] [address] * BOTULINUM TOXIN FOR MOVEMENT DISORDER (08/08/2023 3:30 PM BARREL MAKER) Narrative MMODAL - 08/08/2023 3:30 PM BARREL MAKER Erickson Brock M.D. 08/08/2023 3:59 PM Botulinum toxin for movement disorder Performed by: Erickson Brock M.D. Authorized by: Nellie Jones M.D. Nellie Jones M.D. NEUROLOGY ORDERABLES Final Result MMODAL NA * CYSTOSCOPY-Urology Image Exam (08/06/2023 1:45 PM BARREL MAKER) 08/06/2023 1:41 PM BARREL MAKER Narrative IIMS - 08/06/2023 2:53 PM BARREL MAKER This order has been created and auto-finalized to support the import of images acquired without order. The clinical documentation to support these images can be found on the encounter that produced images. us Provider Not In System IMG NON RAD IMAGING PROCE DURES Final Result IIMS NA * DX Knee Right 4+ Views (07/26/2023 9:44 AM CDT) Anatomical Region Laterality Modality Lower Extremity, Knee, Muscu loskeletal RST LOS, Musculoskeletal ARZ LOS, Muskuloskeletal FLA LOS Right Digit al Radiography 07/26/2023 9:46 AM CDT Impressions 07/26/2023 9:46 AM CDT Comparison 05/07/2019. There is progressed moderate medial compartment predominant tricompartmental right knee osteoarthritis. Small right knee joint effusion. Alignment normal. No acute fracture. Left total knee arthroplasty partially imaged. Narrative 07/26/2023 9:46 AM CDT EXAM: DX KNEE RIGHT 4+ VIEWS Procedure Note Roberth Almaraz M.D. - 07/26/2023 EXAM: DX KNEE RIGHT 4+ VIEWS IMPRESSION: Comparison 05/07/2019. There is progressed moderate medial compartment predominanttricompartmental right knee osteoarthritis. Small right knee joint effusion. Alignment normal. Noacute fracture. Left total knee arthroplasty partially imaged. Melita Thursotn P.A.-C., P.A. IMG DIAGNOSTIC IMAGING PROCEDURES Final Result * Aldolase (05/15/2023 1:39 PM CDT) Aldolase, S 3.9 <7.7 U/L 05/16/2023 9: 41 AM CDT DTL Blood (Blood, Venous) 05/15/2023 1:39 PM CDT 05/16/2023 8:38 AM CDT Salwa Bakkali-Derksen D.O. LAB BLOOD NON ADD-ON Final Result [facility] [address] [place] [address], [place] D[place] [facility] [address] [place] [address] * Sedimentation Rate (05/15/2023 1:39 PM CDT) Only the most recent of11 resultswithin the time period is included. Sedimentation Rate, B 10 0 - 22 mm/1 h 05/15/2023 8:10 PM CDT [facility] Blood (Blood, Venous) 05/15/2023 1:39 PM CDT 05/15/2023 7:08 PM CDT Slime Esquivel D.O. LAB BLOOD ADD-ON Sonia l Result Performing Organization Address City/[facility]/ZIP Co de Phone Number [facility] [address] [place] [address], [place] [facility] [place] [address] [place] [address] * CRP (C-Reactive Protein) (05/15/2023 1:39 PM CDT) Only the most recent of14 resultswithin the time period is included. Pathologist [facility] C-Reactive Protein (CRP), P <3.0 <5.0 mg/L 05/15/2023 2:32 PM CDT [facility] Blood (Blood, Venous) 05/15/2023 1:39 PM CDT 05/15/2023 1:46 PM CDT Slime Esquivel D.O. LAB BLOOD ADD-ON Sonia l Result [facility] [address] [place] [address], [place] [facility] [place] [address] [place] [address] * CK (Creatine Kinase) (05/15/2023 1:39 PM CDT) Creatine Kinase, P 56 39 - 308 U/L 05/15/2023 7:49 PM CDT [facility] Blood (Blood, Venous) 05/15/2023 1:39 PM CDT 05/15/2023 7:08 PM CDT us Slime Esquivel D.O. LAB BLOOD ADD-ON Sonia l Result [facility] [address] [place] [address], [facility] MKTO [facility] [place] [address] [place] [address] * Urinalysis with Microscopic: Urine, Midstream (05/15/2023 1:32 PM CDT) Source Urine, Urine, Midstream 05/15/2023 1:42 PM CDT OWAT Clarity Clear Clear 05/15/2023 1:42 PM CDT OWAT Color Yellow 05/15/2023 1:42 PM CDT OWAT Comment: ----REFERENCE VALUE---- Colorless Yellow Destiny Blood Negative Negative 05/15/2023 1:42 PM CDT OWAT Nitrite Negative Negative 05/15/2023 1:42 PM CDT OWAT Leukocyte Esterase Negative Negative 05/15/2023 1:42 PM CDT OWAT Protein Negative mg/dL 05/15/2023 1:42 PM CDT OWAT Comment: ----REFERENCE VALUE---- Negative Trace Glucose Negative Negative mg/dL 05/15/2023 1:42 PM CDT OWAT Ketone Negative Negative mg/dL 05/15/2023 1:42 PM CDT OWAT Bilirubin Negative Negative 05/15/2023 1:42 PM CDT OWAT pH 6.0 5.0 - 8.0 05/15/2023 1:42 PM CDT OWAT Specific [place] 1.007 1.001 - 1.035 05/15/2023 1:42 PM CDT OWAT Urobilinogen 0.2 0.2 - 1.0 mg/dL 05/15/2023 1:42 PM CDT OWAT White Blood Cells None Seen /hpf 05/15/2023 1:45 PM CDT OWAT Comment: ----REFERENCE VALUE---- Males: 0-3 Females: 0-10 Unknown: 0-10 Red Blood Cells None Seen 0 - 2 /hpf 1:45 PM CDT OWAT Urine (Urine, Midstream) 05/15/2023 1:32 PM CDT 05/15/2023 1:37 PM CDT us Slime Esquivel D.O. LAB URINE ORDERABLES Final Result [facility] [address] [place] [address], [facility] OWAT [facility] [place] [address] [place] [address] * DX Knee Left 3 Views (08/25/2022 1:09 PM BARREL MAKER) Only the most recent of2 resultswithin the time period is included. Anatomical Region Laterality Modality Lower Extremity, Knee, Muscu loskeletal RST LOS, Musculoskeletal ARZ LOS, Muskuloskeletal FLA LOS Left Digit al Radiography 08/25/2022 3:59 PM BARREL MAKER Impressions 08/25/2022 4:00 PM BARREL MAKER Left TKA with patellar resurfacing, hardware appears intact no evidence of loosening or periprosthetic fracture. Moderate knee joint effusion/synovitis. Vascular calcification. Narrative 08/25/2022 4:00 PM BARREL MAKER EXAM: DX KNEE LEFT 3 VIEWS Procedure Note Rashard Hudson M.D. - 08/25/2022 EXAM: DX KNEE LEFT 3 VIEWS IMPRESSION: Left TKA with patellar resurfacing, hardware appears intact no evidence ofloosening or periprosthetic fracture. Moderate knee joint effusion/synovitis. Vascularcalcification. Apollo Justice M.D. IMG DIAGNOSTIC IMAGING PROCE DUR Final Result * DX Knee Left 2 Views (07/14/2022 10:07 AM CDT) Anatomical Region Laterality Modality Lower Extremity, Knee, Muscu loskeletal RST LOS, Musculoskeletal ARZ LOS, Muskuloskeletal FLA LOS Left Digit al Radiography 07/14/2022 10:0 9 AM CDT Impressions 07/14/2022 10:10 AM CDT Left TKA with patellar resurfacing, new compared with 06/07/2022. Negative for postoperative purposes. Narrative 07/14/2022 10:10 AM CDT EXAM: DX KNEE LEFT 2 VIEWS Procedure Note Katarina Gaspar M.D. - 07/14/2022 EXAM: DX KNEE LEFT 2 VIEWS IMPRESSION: Left TKA with patellar resurfacing, new compared with 06/07/2022. Negativefor postoperative purposes. us Apollo Justice M.D. IMG DIAGNOSTIC IMAGING PROCE [facility] Final Result * Potassium (07/11/2022 1:57 PM CDT) Potassium, P 3.9 3.6 - 5.2 mmol/L 07/11/2022 3:52 PM CDT OWAT Blood (Blood, Venous) 07/11/2022 1:57 PM CDT 07/11/2022 3:31 PM CDT us Slime Esquivel D.O. LAB BLOOD ADD-ON Sonia l Result [facility] [address] [place] [address], [facility] OWAT [facility] [place] [address] [place] [address] * SARS Coronavirus-2 RNA, V Asymptomatic (07/10/2022 10:05 AM CDT) Only the most recent of3 resultswithin the time period is included. SARS-CoV-2 Specimen Source Swab, Nasopharynx 07/11/2022 1:23 AM CDT MKTO SARS CoV-2 RNA, TMA Undetected Undetected 07/11/2022 1:23 AM CDT MK Comment: SARS-CoV-2 RNA absent. This result does not rule out COVID-19 in the patient, as the sensitivity of the test depends on the timing of the specimen collection and the quality of the specimen. Result should be correlated with patient's history and clinical presentation. ----ADDITIONAL INFORMATION---- This molecular amplification test was performed using the Aptima SARS-CoV-2 assay ([employer] on the Quarterly System under emergency use authorization (EUA) by the U.S. Food and Drug Administration. Fact sheets for this EUA assay can be found at the following links: For Healthcare Providers: https://www.fda.gov/media/052332/download For Patients: https://www.fda.gov/media/435529/download Swab (Nasopharynx) 07/10/2022 10:05 AM CDT 07/10/2022 3:27 PM CDT Apollo Justice M.D. LAB MICROBIOLOGY - GENERAL O RDERABLES Final Result [facility] [address] [place] [address], [facility] [place] [address] [place] [address] * (ABNORMAL) Renal Function Panel (07/04/2022 9:57 AM CDT) Potassium, P 5.4(H) 3.6 - 5.2 mmol/L 07/04/2022 10:38 AM CDT OWAT Sodium, P 140 135 - 145 mmol/L 07/04/2022 10:38 AM CDT OWAT Chloride, P 101 98 - 107 mmol/L 07/04/2022 10:38 AM CDT OWAT Bicarbonate, P 28 22 - 29 mmol/L 07/04/2022 10:38 AM CDT OW[facility] Anion Gap, P 11 7 - 15 07/04/2022 10:38 AM CDT OWAT BUN (Blood Urea Nitrogen), P 16 8 - 24 mg/dL 07/04/2022 10:38 AM CDT OWAT Creatinine 0.87 0.74 - 1.35 mg/dL 07/04/2022 10:38 AM CDT OWAT Estimated GFR (eGFR) >90 >=60 mL/min/BSA 07/04/2022 10:38 AM CDT OWAT Comment: Estimated GFR calculated using the 2020 CKD_EPI creatinine equation. Calcium, Total, P 9.4 8.8 - 10.2 mg/dL 07/04/2022 10:38 AM CDT OWAT Glucose, P 103 70 - 140 mg/dL 07/04/2022 10:38 AM CDT OWAT Albumin, P 4.6 3.5 - 5.0 g/dL 07/04/2022 10:38 AM CDT OWAT Phosphorus (Inorganic), P 4.0 2.5 - 4.5 mg/dL 07/04/2022 4:51 PM CDT [facility] Blood (Blood, Venous) 07/04/2022 9:57 AM CDT 07/04/2022 10:02 AM CDT [facility] - 07/04/2022 4:51 PM CDT Specimen Information: Specimen ID: [id number] Specimen Type: Blood Specimen Collection Start Date: 07/04/2022 9:57 AM Specimen Received Date: 07/04/2022 10:02 AM Specimen ID: [id number] Specimen Type: Blood Specimen Collection Start Date: 07/04/2022 9:57 AM Specimen Received Date: 07/04/2022 4:34 PM Slime Esquivel D.O. LAB BLOOD ADD-ON Sonia l Result [facility] [address] [place] [address], [facility] OWAT [facility] [place] [place] [address] [facility] [address] [place] [address] * DX Knee Left Standing 3 Views (06/07/2022 9:34 AM CDT) Anatomical Region Laterality Modality Lower Extremity, Knee, Muscu loskeletal RST LOS, Musculoskeletal ARZ LOS, Muskuloskeletal FLA LOS Left Digit al Radiography 06/07/2022 9:52 AM CDT Impressions 06/07/2022 9:52 AM CDT Degenerative arthritis left knee with medial compartment narrowing. Small effusion or synovitis left knee. Left knee otherwise negative. Narrative 06/07/2022 9:52 AM CDT EXAM: DX KNEE LEFT STANDING 3 VIEWS Procedure Note Tushar Valladares M.D. - 06/07/2022 EXAM: DX KNEE LEFT STANDING 3 VIEWS IMPRESSION: Degenerative arthritis left knee with medial compartment narrowing. Smalleffusion or synovitis left knee. Left knee otherwise negative. us Apollo Justice M.D. IMG DIAGNOSTIC IMAGING PROCE [facility] Final Result * Methotrexate Level (11/01/2021 9:55 AM BARREL MAKER) Methotrexate, S <0.04 <0.10 mcmol/L 11/02/2021 9:34 AM BARREL MAKER DTL Blood (Blood, Venous) 11/01/2021 9:55 AM BARREL MAKER 11/02/2021 9:15 AM BARREL MAKER us Slime Esquivel D.O. LAB BLOOD ADD-ON Sonia l Result [facility] [address] [place] [address], [facility] [address] [place] [address] * MO ARTHCS ASP/INJ MJR JT WO US (06/29/2021 10:05 AM CDT) Narrative MMODAL - 06/29/2021 10:05 AM CDT Apollo Justice M.D. 06/29/2021 10:08 AM Knee site- L knee joint : injection only Date/Time: 06/29/2021 10:05 AM Performed by: Apollo Justice M.D. Authorized by: Apollo Justice M.D. PROCEDURE DETAILS Procedure Location knee Knee site: L knee joint Site prep: patient was prepped and draped in usual sterile fashion Patient position: seated Procedural approach: anterolateral Procedure performed: injection only Needle gauge: 21 G Procedural Medication The following medications were administered at the target site(s) Local anesthetic: 8 mL lidocaine 10 mg/mL (1 %) Corticosteroid: 9 mg betamethasone acetate & sodium phosphate 6 mg/mL CONSENT Consent obtained: written UNIVERSAL PROTOCOL All relevant documentation and testing were reviewed and available. All required blood products, implants, devices and or special equipment were made available as applicable. Pre-procedure verification was conducted and the correct site was marked if required. A fire risk assessment was done as applicable. The procedural time-out was conducted prior to performing the procedure and confirmed in a procedural pause. PRE-PROCEDURE DETAILS Procedure purpose: therapeutic Appropriate hand hygiene, gown, cap, mask, protective eyewear, sterile gloves, skin preparation, sterile drape, and strict aseptic technique were utilized as applicable for the procedure. Site preparation: alcohol SEDATION / ANESTHESIA Anesthesia method: none POST-PROCEDURE DETAILS Procedure completed successfully: yes Complications: no apparent complications Post-procedure instructions: avoid strenuous activity for 2 days and avoid submersion of procedure site for 24 hours Discharge instructions: ice area as needed for comfort Apollo Justice M.D. PROCEDURE/MINOR SURGICAL ORD ERABLES Final Result Performing Organization Address [facility] de Phone Number MMODAL NA * Optical Coherence Tomography (OCT) - Macula/Retina - OU - Both Eyes (02/25/2021 8:57 AM CDT) Narrative OPHTHALMOLOGY IMAGING EXAM - 02/25/2021 9:16 AM CDT Right Eye Findings include macular pucker. Left Eye Findings include macular pucker. Richy Cruz M.D. OPHTH TOMOGRAPHY Final Result Performing Organization Address [facility] de Phone Number OPHTHALMOLOGY IMAGING EXAM * Prostate-Specific Antigen (PSA) Ultrasensitive (11/01/2020 9:15 AM BARREL MAKER) PSA, Ultrasensitive, S 2.2 <=6.5 ng/mL 11/02/2020 8:49 AM BARREL MAKER [facility] Comment: ----ADDITIONAL INFORMATION---- INTERPRETATION: After radical prostatectomy, serum PSA concentrations should decrease and remain at undetectable levels. The [place] [employer] defines biochemical recurrence as an initial PSA concentration >=0.20 ng/mL followed by a subsequent confirmatory PSA concentration >=0.20 ng/mL. PLEASE NOTE: The above reference interval and flagging is intended for healthy males without prostatectomy. The testing method is an electrochemiluminescence assay manufactured by [employer] and performed on the Simona system. Values obtained with different assay methods or kits may be different and cannot be used interchangeably. Test results cannot be interpreted as absolute evidence for the presence or absence of malignant disease. Blood (Blood, Venous) 11/01/2020 9:15 AM BARREL MAKER 11/02/2020 7:43 AM BARREL MAKER us Slime Esquivel D.O. LAB BLOOD ADD-ON Sonia chad Result [facility] [address] [place] [address] [facility] Dept. of Laboratory Medicine and Pathology [address] [place] [address] * SUTURE REMOVAL (05/25/2020 2:30 PM CDT) Narrative MMODAL - 05/25/2020 2:30 PM CDT Zainab Mancera L.P.N. 05/25/2020 4:59 PM Suture removal Date/Time: 05/25/2020 4:59 PM Performed by: Zainab Mancera L.P.N. Authorized by: Melita Thurston, P.A.-C. PROCEDURE DETAILS Wound appearance: No signs of infection Number of sutures removed: 2 CONSENT Consent obtained: verbal Consent given by: patient The benefits, risks and alternatives to the procedure and the potential need for sedation or anesthesia as well as the names, roles, and responsibilities of healthcare team members performing significant interventional tasks were discussed with the patient and/or decision maker. UNIVERSAL PROTOCOL All relevant documentation and testing were reviewed and available. All required blood products, implants, devices and or special equipment were made available as applicable. Pre-procedure verification was conducted and the correct site was marked if required. A fire risk assessment was done as applicable. The procedural time-out was conducted prior to performing the procedure and confirmed in a procedural pause. PRE PROCEDURE DETAILS Sutures were placed at [facility] facility: no Indicaton: scheduled suture removal Location: Lower extremity Lower extremity location: Knee Knee location: Left knee SEDATION / ANESTHESIA Anesthesia method: none POST PROCEDURE DETAILS Procedure completed successfully: yes Complications: no immediate complications Post-removal: No dressing applied Melita Thurston P.A.-C., P.A. PROCEDURE/MINOR SURGICAL ORDERABLES Final Result MM[facility] NA * (TTE) 2D ECHO DOPPLER COLOR AND CONTRAST (05/07/2020 2:09 PM CDT) Ejection Fraction 59 MC CV EIMS Sinus of Valsalva 35 MC CV EIMS Mid-Ascending Aorta 37 MC CV EIMS LV Mass Index 60 MC CV EIMS LV End-Diastolic Diameter 46 MC CV EIMS LV End-Systolic Diameter 29 MC CV EIMS LV End-Diastolic Volume 122 MC CV EIMS LV End-Systolic Volume 50 MC CV EIMS MV E Velocity 0.5 MC CV EIMS MV A Velocity 0.5 MC CV EIMS MV E/A 1.00 MC CV EIMS MV e' Velocity Medial 0.08 MC CV EIMS MV e' Velocity Lateral 0.08 MC CV EIMS MV E/e' Medial 6.3 MC CV EIMS MV E/e' Lateral 6.3 MC CV EIMS Left ventricular stroke volume index 49 MC CV EIMS Cardiac Output 5.89 MC CV EIMS Cardiac Index 3.04 MC CV EIMS LV Interventricular Septal Wall Thickness 9 MC CV EIMS LV Posterior Wall Thickness 7 MC CV EIMS LV Relative Wall Thickness 30 MC CV EIMS RV 4-Chamber Basal Diameter 44 MC CV EIMS RV 4-Chamber Mid Diameter 37 MC CV EIMS RV 4-Chamber Length 80 MC CV EIMS Tricuspid Annular S 0.11 MC CV EIMS TR Vmax 2.12 MC CV EIMS Estimated RA Pressure (Echo RAP) 5 MC CV EIMS RV Systolic Pressure (with Echo RAP) 23 MC CV EIMS TR Vmax/RVOT TVI 0.21 MC CV EIMS AV mean gradient 8 MC CV EIMS Aortic valve area 2.23 MC CV EIMS Aortic Valve Area Index 1.15 MC CV EIMS Aortic Valve Dimensionless Index 0.49 MC CV EIMS LA Volume Index 30 [facility] EINM Anatomical Region Laterality Modality Echocardiography 05/07/2020 12:2 0 PM CDT Impressions 05/07/2020 3:09 PM CDT No previous studies available for comparison. Intravenous Lumason ultrasound enhancement agent(s) administered to enhance endocardial border definition. LEFT VENTRICLE: Normal left ventricular chamber size. Normal left ventricular wall thickness. Left ventricular mass index by 2D 60 g/m^2. Calculated 2-D linear left ventricular ejection fraction 60 %. Calculated 2-D biplane volumetric left ventricular ejection fraction 59 %. No regional wall motion abnormalities. Normal left ventricular filling pressure. RIGHT VENTRICLE: Mildly enlarged right ventricular chamber size. Mildly reduced right ventricular systolic function. Estimated right ventricular systolic pressure 23 mmHg (systolic blood pressure 117 mmHg). ATRIA: Normal left atrial size. Left atrial volume index 30 ml/m^2. Normal right atrial size. CARDIAC VALVES: Trileaflet aortic valve. Calcified aortic valve; reduced mobility of RCC and NCC; LCC opens best. Trivial calcific aortic valve stenosis suspected. Aortic valve systolic mean Doppler gradient 8 mmHg. Aortic valve area by Doppler 2.23 cm^2. LIZETH by 2D plannimetry 2.0 cm^2. No aortic valve regurgitation. Mildly calcified mitral annulus. Thickened mitral valve. Trivial mitral valve regurgitation. Normal pulmonary valve. Normal pulmonary valve systolic velocity. Trivial pulmonary valve regurgitation. Thickened tricuspid valve. Mild tricuspid valve regurgitation. OTHER ECHO FINDINGS: Normal inferior vena cava size with normal inspiratory collapse (>50%). Normal mid ascending aorta diameter (diameter 37 mm at mid level). No abdominal aortic aneurysm. Normal abdominal aorta Doppler flow pattern. No atrial level shunt by color flow imaging. No intracardiac mass or thrombus, but the left atrial appendage cannot be visualized adequately with transthoracic echo to exclude thrombus in this location. No pericardial effusion. For the complete report, see the Order-Level Documents. Narrative 05/07/2020 3:09 PM CDT For the complete report, see the Order-Level Documents. Final Impressions 1. Normal left ventricular chamber size. Calculated ejection fraction 60%. 2. No regional wall motion abnormalities. Normal LV filling pressure. 3. Mildly enlarged right ventricular chamber size with mildly reduced systolic function. 4. Estimated right ventricular systolic pressure 23 mmHg (systolic blood pressure 117 mmHg). 5. Calcified aortic valve with reduced mobility of right and non-coronary cusp. Trivial calcific aortic stenosis suspected (trileaflet); mean aortic gradient 8 mmHg. No regurgitation. 6. Normal inferior vena cava size with normal inspiratory collapse (>50%). No pericardial effusion. 7. Normal mid ascending aorta diameter (diameter 37 mm at mid level). Procedure Note Johnathan Clay M.B.B.S., Ph.D. - 05/07/2020 For the complete report, see the Order-Level Documents. Final Impressions 1. Normal left ventricular chamber size. Calculated ejection [id number]%. 2. No regional wall motion abnormalities. Normal LV filling pressure. 3. Mildly enlarged right ventricular chamber size with mildly reducedsystolic function. 4. Estimated right ventricular systolic pressure 23 mmHg (systolic bloodpressure 117 mmHg). 5. Calcified aortic valve with reduced mobility of right and non-coronarycusp. Trivial calcific aortic stenosis suspected (trileaflet); mean aortic gradient 8mmHg. No regurgitation. 6. Normal inferior vena cava size with normal inspiratory collapse (>50%).No pericardial effusion. 7. Normal mid ascending aorta diameter (diameter 37 mm at mid level). Findings No previous studies available for comparison. Intravenous Lumasonultrasound enhancement agent(s) administered to enhance endocardial border definition. LEFTVENTRICLE: Normal left ventricular chamber size. Normal left ventricular wall thickness. Leftventricular mass index by 2D 60 g/m^2. Calculated 2-D linear left ventricular ejection [id number] %. Calculated 2-D biplane volumetric left ventricular ejection fraction 59 %. No regionalwall motion abnormalities. Normal left ventricular filling pressure. RIGHTVENTRICLE: Mildly enlarged right ventricular chamber size. Mildly reduced right ventricular systolicfunction. Estimated right ventricular systolic pressure 23 mmHg (systolic blood pressure 117mmHg). ATRIA: Normal left atrial size. Left atrial volume index 30 ml/m^2. Normal rightatrial size. CARDIAC VALVES: Trileaflet aortic valve. Calcified aortic valve; reducedmobility of RCC and NCC; LCC opens best. Trivial calcific aortic valve stenosis suspected. Aorticvalve systolic mean Doppler gradient 8 mmHg. Aortic valve area by Doppler 2.23 cm^2. LIZETH by2D plannimetry 2.0 cm^2. No aortic valve regurgitation. Mildly calcified mitral annulus.Thickened mitral valve. Trivial mitral valve regurgitation. Normal pulmonary valve.Normal pulmonary valve systolic velocity. Trivial pulmonary valve regurgitation. Thickenedtricuspid valve. Mild tricuspid valve regurgitation. OTHER ECHO FINDINGS: Normal inferior venacava size with normal inspiratory collapse (>50%). Normal mid ascending aorta diameter(diameter 37 mm at mid level). No abdominal aortic aneurysm. Normal abdominal aorta Dopplerflow pattern. No atrial level shunt by color flow imaging. No intracardiac mass or thrombus, butthe left atrial appendage cannot be visualized adequately with transthoracic echo toexclude thrombus in this location. No pericardial effusion. For the complete report, see the Order-Level Documents. us Bernard Ratliff M.D. CV ECHO PROCEDURES Final Res ult * SARS-CoV-2 Total Antibody, Serum (05/07/2020 10:10 AM CDT) SARS-CoV-2 Nucleocapsid Total Ab, S Negative Negative 05/07/2020 3:13 PM CDT MKTO Comment: No antibodies to SARS-CoV-2 detected. Negative results may occur in serum collected too soon following infection or in immunosuppressed patients. Follow-up testing with a molecular test is recommended in symptomatic patients. This test should not be used to exclude active/recent COVID-19. ----ADDITIONAL INFORMATION---- Testing was performed using the Anshul Elecsys [id number] Reagent assay from [employer], which has received Emergency Use Authorization(EUA) by the U.S. Food and Drug Administration. Fact sheets for this Emergency Use Authorization (EUA) assay can be found at the following links: For Healthcare Providers: https://www.fda.gov/media/431017/download For Patients: https://www.fda.gov/media/840849/download Blood (Blood, Venous) 05/07/2020 10:10 AM CDT 05/07/2020 2:12 PM CDT us Apollo Justice M.D. LAB MICROBIOLOGY - BLOOD ORD ERABLES Final Result [facility] [address] [place] [address], [facility] MKTO [facility] [place] [address] [place] [address] * MR Knee Left without IV Contrast (04/27/2020 4:24 PM CDT) Anatomical Region Laterality Modality Lower Extremity, Knee, Muscu loskeletal RST LOS, Musculoskeletal ARZ LOS, Muskuloskeletal FLA LOS Left Magne tic Resonance 04/27/2020 4:26 PM CDT Impressions 04/27/2020 4:36 PM CDT 1. Medial meniscus has diffuse marked degenerative tearing and fraying. 2. Full-thickness chondral loss of weightbearing medial compartment with resultant subchondral stress marrow edema and sclerosis. 3. Lateral meniscus flap tear of posterior horn. 4. Large knee joint effusion with synovial debris or synovitis. 5. Increased ruptured large popliteal cyst. Narrative 04/27/2020 4:36 PM CDT EXAM: MR KNEE LEFT WITHOUT IV CONTRAST COMPARISON: CT 04/22/20. Radiographs 12/05/18. FINDINGS: MARROW: No fractures or contusions. SYNOVIUM: Large knee joint effusion. There is multifocal synovial debris or synovitis, particularly anterior to the medial femoral condyle (series 2 image 15). Thickened suprapatellar plica. MEDIAL COMPARTMENT: There is marked degenerative tearing and fraying of the medial meniscus body, posterior horn, and body. There is full-thickness chondral loss of the weightbearing medial femoral condyle and medial tibial plateau with subchondral sclerosis and subchondral stress marrow edema. Marginal osteophytes. LATERAL COMPARTMENT: Lateral meniscus posterior horn has flap tear of the inner edge (series 2 image 24). There is partial thickness fissuring of the weightbearing articular cartilage of lateral femoral condyle. Small marginal osteophytes. PATELLOFEMORAL COMPARTMENT: Mild chondromalacia patella. ANTERIOR CRUCIATE LIGAMENT: Intact. POSTERIOR CRUCIATE LIGAMENT: Intact. MEDIAL COLLATERAL LIGAMENT: Intact. LATERAL COLLATERAL LIGAMENTOUS COMPLEX: Intact. POSTERIOR LATERAL CORNER: Normal popliteus tendon. Normal popliteal fibular ligament. ILIOTIBIAL BAND: Normal. DISTAL QUADRICEPS AND PATELLAR TENDONS: Intact. BURSA: Increased 7.1 cm popliteal cyst is ruptured with fluid tracking inferiorly along the superficial fibers of the medial head of the gastrocnemius muscle. MUSCLES: No atrophy. Subcutaneous tissues: Prepatellar subcutaneous edema. Procedure Note Apollo Ruiz M.D. - 04/27/2020 EXAM: MR KNEE LEFT WITHOUT IV CONTRAST COMPARISON: CT 04/22/20. Radiographs 12/05/18. FINDINGS: MARROW: No fractures or contusions. SYNOVIUM: Large knee joint effusion. There is multifocal synovial debrisor synovitis, particularly anterior to the medial femoral condyle (series 2image 15). Thickened suprapatellar plica. MEDIAL COMPARTMENT: There is marked degenerative tearing and fraying ofthe medial meniscus body, posterior horn, and body. There is full-thicknesschondral loss of the weightbearing medial femoral condyle and medial tibial plateauwith subchondral sclerosis and subchondral stress marrow edema. Marginalosteophytes. LATERAL COMPARTMENT: Lateral meniscus posterior horn has flap tear of theinner edge (series 2 image 24). There is partial thickness fissuring of the weightbearing articular cartilage of lateral femoral condyle. Smallmarginal osteophytes. PATELLOFEMORAL COMPARTMENT: Mild chondromalacia patella. ANTERIOR CRUCIATE LIGAMENT: Intact. POSTERIOR CRUCIATE LIGAMENT: Intact. MEDIAL COLLATERAL LIGAMENT: Intact. LATERAL COLLATERAL LIGAMENTOUS COMPLEX: Intact. POSTERIOR LATERAL CORNER: Normal popliteus tendon. Normal poplitealfibular ligament. ILIOTIBIAL BAND: Normal. DISTAL QUADRICEPS AND PATELLAR TENDONS: Intact. BURSA: Increased 7.1 cm popliteal cyst is ruptured with fluid tracking inferiorly along the superficial fibers of the medial head of thegastrocnemius muscle. MUSCLES: No atrophy. Subcutaneous tissues: Prepatellar subcutaneous edema. IMPRESSION: 1. Medial meniscus has diffuse marked degenerative tearing and fraying. 2. Full-thickness chondral loss of weightbearing medial compartmentwith resultant subchondral stress marrow edema and sclerosis. 3. Lateral meniscus flap tear of posterior horn. 4. Large knee joint effusion with synovial debris or synovitis. 5. Increased ruptured large popliteal cyst. Apollo Justice M.D. [facility] [place] PROCEDURES Final Res ult * CT Knee Left with IV Contrast (04/22/2020 11:07 AM CDT) Anatomical Region Laterality Modality Lower Extremity, Knee, Muscu loskeletal RST LOS, Musculoskeletal ARZ LOS, Muskuloskeletal FLA LOS Left Compu eugenia Tomography 04/22/2020 11:4 1 AM CDT Impressions 04/22/2020 11:52 AM CDT 1. Area of palpable interest posterior medial knee corresponds with moderate-sized popliteal cyst measuring up 6.6 cm. 2. Large joint effusion and/or synovitis. 3. Moderate tricompartmental degenerative arthritis, greatest at the medial compartment. 4. If relevant to clinical management, MRI of the knee would be sensitive for evaluation of ligaments and menisci. Narrative 04/22/2020 11:52 AM CDT EXAM: CT KNEE LEFT WITH IV CONTRAST COMPARISON: Radiographs 05/07/2019 FINDINGS: Large joint effusion and/or synovitis. Moderate sized mildly complex popliteal cyst measuring 2.1 x 3.6 x 6.6 cm (AP by LR by SI) corresponds with a BB marker placed over the area of interest of the posterior knee. No acute fracture. Moderate tricompartmental degenerative narrowing and hypertrophic change greatest at the medial compartment where there is subchondral sclerosis along the medial tibial plateau and medial femoral condyle. Small ossicle adjacent to the lateral tibial spine. CT is insensitive for evaluation of ligaments and menisci. Faint arterial calcifications. Procedure Note Ovi Talavera M.D. - 04/22/2020 EXAM: CT KNEE LEFT WITH IV CONTRAST COMPARISON: Radiographs 05/07/2019 FINDINGS: Large joint effusion and/or synovitis. Moderate sized mildlycomplex popliteal cyst measuring 2.1 x 3.6 x 6.6 cm (AP by LR by SI) correspondswith a BB marker placed over the area of interest of the posterior knee. Noacute fracture. Moderate tricompartmental degenerative narrowing andhypertrophic change greatest at the medial compartment where there is subchondralsclerosis along the medial tibial plateau and medial femoral condyle. Smallossicle adjacent to the lateral tibial spine. CT is insensitive for evaluationof ligaments and menisci. Faint arterial calcifications. IMPRESSION: 1. Area of palpable interest posterior medial knee corresponds with moderate-sized popliteal cyst measuring up 6.6 cm. 2. Large joint effusion and/or synovitis. 3. Moderate tricompartmental degenerative arthritis, greatest at themedial compartment. 4. If relevant to clinical management, MRI of the knee would be sensitivefor evaluation of ligaments and menisci. us Slime Esquivel D.O. IMG CT PROCEDURES Fin al Result * Basic Metabolic Panel (04/14/2020 12:10 PM CDT) Only the most recent of2 resultswithin the time period is included. Potassium, P 4.5 3.6 - 5.2 mmol/L 04/14/2020 3:26 PM CDT OWAT Sodium, P 138 135 - 145 mmol/L 04/14/2020 3:26 PM CDT OWAT Chloride, P 99 98 - 107 mmol/L 04/14/2020 3:26 PM CDT OWAT Bicarbonate, P 27 22 - 29 mmol/L 04/14/2020 3:26 PM CDT OW[facility] Anion Gap, P 12 7 - 15 04/14/2020 3:26 PM CDT OWAT BUN (Blood Urea Nitrogen), P 15 8 - 24 mg/dL 04/14/2020 3:26 PM CDT OWAT Creatinine 0.84 0.74 - 1.35 mg/dL 04/14/2020 3:26 PM CDT OWAT eGFR-Black/Afric an Mozambican >90 >=60 mL/min/BSA 04/14/2020 3:26 PM CDT OWAT Comment: ----ADDITIONAL INFORMATION---- Estimated GFR calculated using the 2009 CKD_EPI creatinine equation. eGFR Non-Black/Che n Mozambican 88 >=60 mL/min/BSA 04/14/2020 3:26 PM CDT OWAT Comment: ----ADDITIONAL INFORMATION---- Estimated GFR calculated using the 2009 CKD_EPI creatinine equation. Calcium, Total, P 9.4 8.8 - 10.2 mg/dL 04/14/2020 3:26 PM CDT OWAT Glucose, P 92 70 - 140 mg/dL 04/14/2020 3:26 PM CDT OWAT Blood (Blood, Venous) 04/14/2020 12:10 PM CDT 04/14/2020 12:42 PM CDT us Slime Esquivel D.O. LAB BLOOD ADD-ON Sonia l Result [facility] [address] [place] [address], [facility] OWAT [facility] [place] [address] [place] [address] * - Miscellaneous Test (09/10/2019 10:38 AM BARREL MAKER) Test Name CRP 09/10/2019 3:03 PM BARREL MAKER OWAT Result 7.6 mg/L 09/10/2019 3:03 PM BARREL MAKER OWAT Comment: Reference Range <=8 mg/L Performing Site: [facility] [address] [place] [address] Leadership Development Instructor: Liliane Meredith M.D. Varies 09/10/2019 10:3 8 AM BARREL MAKER 09/10/2019 10:54 AM BARREL MAKER Aure Winters APRN, C.N.P., M.S.N. LAB [facility] ALEC GARCIA Final Result [facility] [address] [place] [address], [facility] OWAT [facility] [place] [address] [place] [address] * [place] LUMBAR SPINE TRANSFORAMINAL EPIDURAL INJECTION LEFT (05/29/2019 10:28 AM CDT) Narrative [address] - 05/29/2019 12:58 PM CDT Bernard Vázquez M.D. 05/29/2019 12:59 PM FL Lumbar Spine Transforaminal Epidural Injection Left Date/Time: 05/29/2019 12:58 PM Performed by: Bernard Vázquez M.D. Authorized by: Bernard Vázquez M.D. Care team members present 1. Carine Underwood L.P.N. 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 A spinal needle was then advanced under fluoroscopic guidance to the posterior aspect of the neural foramen. Appropriate foraminal depth was determined with a lateral fluoroscopic view, and AP visualization confirmed needle positioning at approximately the 6 o'clock position relative to the pedicle. After negative aspiration, contrast was injected using live fluoroscopy and digital subtraction angiography, confirming appropriate transforaminal spread without evidence of intravascular or intrathecal uptake. A local anesthetic test dose consisting of 1 mL of 2% lidocaine was injected through the needle. After an appropriate period of observation, a directed neurological exam was performed which revealed no new neurologic deficits. Next, the injectate was injected slowly and incrementally into the epidural space. Following the injection the needle was withdrawn flushed with lidocaine as it was fully extracted. The patient tolerated the procedure well and there were no apparent complications. After appropriate observation, the patient was dismissed in good condition under their own power. ADDITIONAL PROCEDURE COMMENTS Dexamethasone (10 mg/ml): 1cc Lidocaine 2%: 1cc Omnipaque (300 u/ml): 1cc CONSENT Consent obtained: verbal and written UNIVERSAL PROTOCOL All relevant documentation and testing were reviewed and available. All required blood products, implants, devices and or special equipment were made available as applicable. Pre-procedure verification was conducted and the correct site was marked if required. A fire risk assessment was done as applicable. The procedural time-out was conducted prior to performing the procedure and confirmed in a procedural pause. PRE-PROCEDURE DETAILS Procedure purpose: Diagnostic and therapeutic Appropriate hand hygiene, gown, cap, mask, protective eyewear, sterile gloves, skin preparation, sterile drape, and strict aseptic technique were utilized as applicable for the procedure: yes Site preparation: Chlorhexidine SEDATION / ANESTHESIA Anesthesia method: local infiltration us Bernard Vázquez M.D. IMMaria M FLUOROSCOPY PROCEDUR ES Final Result 0833 LOS SEMN * NM Brain SPECT DaTscan (05/09/2019 2:24 PM CDT) Anatomical Region Laterality Modality Brain, Nuclear Medicine RST LOS, Nuclear Medicine ARZ LOS, Nuclear Medicine FLA LOS N/A Nuclear Medicine 05/09/2019 2:27 PM CDT Impressions 05/09/2019 3:18 PM CDT Scintigraphic findings consistent with Parkinson's disease. Narrative 05/09/2019 3:18 PM CDT EXAM: CA BRAIN SPECT DATSCAN RADIOPHARMACEUTICAL/MEDS: Route: intravenous ioflupane I 123 injection (DATSCAN I-123),4.4 millicurie TECHNIQUE: SPECT images of the brain obtained approximately 3 hours after IV I-123 Ioflupane injection. COMPARISON: MRI brain 04/04/2019. INDICATION: Tremor. Evaluation for possible Parkinson's disease. FINDINGS: Relatively decreased I-123 Ioflupane uptake in the bilateral putamina. Relatively normal uptake in the bilateral caudate heads. Remainder unremarkable. Procedure Note Zackary Mcneil M.D. - 05/09/2019 EXAM: CA BRAIN SPECT DATSCAN RADIOPHARMACEUTICAL/MEDS: Route: intravenous ioflupane I 123 injection (DATSCAN I-123),4.4 millicurie TECHNIQUE: SPECT images of the brain obtained approximately 3 hours afterIV I-123 Ioflupane injection. COMPARISON: MRI brain 04/04/2019. INDICATION: Tremor. Evaluation for possible Parkinson's disease. FINDINGS: Relatively decreased I-123 Ioflupane uptake in the bilateral putamina. Relatively normal uptake in the bilateral caudate heads.Remainder unremarkable. IMPRESSION: Scintigraphic findings consistent with Parkinson's disease. Cathy ELMORE CA PROCEDURES Final R esult * Thyroid Function [place] (05/09/2019 9:12 AM CDT) TSH, Sensitive 1.7 0.3 - 4.2 mIU/L 05/09/2019 10:30 AM CDT Blood (Blood, Venous) 05/09/2019 9:12 AM CDT 05/09/2019 9:38 AM CDT us Cathy Krishnamurthy M.D. LAB BLOOD ADD-ON Final Re sult Performing Organization Address [facility]/ZIP Co de Phone Number [facility] [address] * Pernicious Anemia [place] (05/09/2019 9:12 AM CDT) Vitamin B12 Assay, S 509 180 - 914 ng/L 05/09/2019 1:45 PM CDT Blood (Blood, Venous) 05/09/2019 9:12 AM CDT 05/09/2019 11:27 AM CDT us Cathy Krishnamurthy M.D. LAB BLOOD NON ADD-ON Sonia l Result Performing Organization Address [facility] Co de Phone Number [facility] [address] [place] [address] * (ABNORMAL) Thiamine (Vitamin B1), Whole Blood (05/09/2019 9:12 AM CDT) Thiamine (Vitamin B1), WB 337(H) 70 - 180 nmol/L 05/11/2019 10:06 PM CDT Comment: ----ADDITIONAL INFORMATION---- This test was developed and its performance characteristics determined by [facility] in a manner consistent with CLIA requirements. This test has not been cleared or approved by the U.S. Food and Drug Administration. Blood (Blood, Venous) 05/09/2019 9:12 AM CDT 05/09/2019 2:38 PM CDT us Cathy Krishnamurthy M.D. LAB BLOOD NON ADD-ON Sonia l Result Performing Organization Address [facility]/ZIP Co de Phone Number [facility] [address] [place] [address] * DX Knee Bilateral Standing 2 Views (05/07/2019 11:34 AM CDT) Anatomical Region Laterality Modality Lower Extremity, Knee, Muscu loskeletal RST LOS, Musculoskeletal ARZ LOS, Muskuloskeletal FLA LOS Bilateral Digit al Radiography 05/07/2019 11:4 3 AM CDT Impressions 05/07/2019 11:49 AM CDT No fracture. Mild tricompartmental degenerative change with mild medial compartment narrowing bilaterally. Trace left knee joint effusion. Mild lateral subluxation of the patellae. Narrative 05/07/2019 11:49 AM CDT EXAM: DX KNEE BILATERAL STANDING 2 VIEWS Procedure Note Malka Hummel M.D. - 05/07/2019 EXAM: DX KNEE BILATERAL STANDING 2 VIEWS IMPRESSION: No fracture. Mild tricompartmental degenerative change with mild medial compartment narrowing bilaterally. Trace left knee joint effusion.Mild lateral subluxation of the patellae. us Bernard Vázquez M.D. IMG DIAGNOSTIC IMAGING P ROCEDURES Final Result * Non-Radiology Image-Physical Medicine And Rehab Image Exam (04/30/2019 2:18 PM CDT) 04/30/2019 2:32 PM CDT Narrative IIMS - 04/30/2019 2:18 PM CDT This order has been created and auto-finalized to support the import of images acquired without order. The clinical documentation to support these images can be found on the encounter that produced images. us Provider Not In System IMG NON RAD IMAGING PROCE DURES Final Result IIMS NA * MO INJ TRIGGER PNT<=2 MUS, MO US GUIDE PLC NDL (04/30/2019 1:30 PM CDT) Narrative Bernard Vázquez M.D. - 04/30/2019 1:30 PM CDT Bernard Vázquez M.D. 04/30/2019 4:41 PM Trigger Point Injection (Left PSIS) Date/Time: 04/30/2019 4:41 PM Performed by: Bernard Vázquez M.D. Authorized by: Vázquez, Bernard F, M.D. Care team members present 1. Carine Underwood L.P.N. PROCEDURE SUMMARY Indication: Left myofascial pain and myalgia Soft tissue site: left PSIS PSIS: multifidus PSIS position: prone Preparation: Patient was prepped and draped in usual sterile fashion Needle size: 25 G Needle length: 2.5 in Number of muscles injected: 1 or 2 muscles IMAGING Ultrasound guidance?: The use of direct ultrasound visualization of the needle was required (rather than a non-guided injection) to ensure accurate injection delivery and to maximize clinical benefit beyond that obtained with a non-guided injection. Additionally, there can be diagnostic specificity when evaluating effectiveness of the injection, and for safety purposes to minimize risk of bleeding or injury to surrounding structures. Images have been archived in [employer]: click the 'Dept Filter' button in [employer], then the 'Clear (Show All)' button, then OK. Ultrasound probe (MHz): linear mid-frequency Needle visualization: in-plane Needle approach: lateral to medial INJECTED MEDICATIONS The injected medication(s) listed was divided equally between the identified injection location(s) 4 mL lidocaine 10 mg/mL (1 %) 20 mg methylPREDNISolone acetate 40 mg/mL PROCEDURE DETAILS PSIS procedure description: The patient was placed in the appropriate position. Prior to the procedure, the appropriate PSIS was examined to determine the optimal needle placement. Thereafter, a needle was advanced into the tissue overlying the PSIS. After visualization of the tip and negative aspiration for blood, the medication was injected into the area surrounding the PSIS. Following the injection, the needle was withdrawn. The patient tolerated the procedure well and there were no apparent complications. After an appropriate amount of observation, the patient was dismissed from the clinic in good condition under their own power. Complications: no apparent complications CONSENT Consent obtained: verbal and written PRE-PROCEDURE DETAILS Appropriate hand hygiene, gown, cap, mask, protective eyewear, sterile gloves, skin preparation, sterile drape, and strict aseptic technique were utilized as applicable for the procedure.: hand hygiene performed Skin preparation: Chlorhexidine us Bernard Vázquez M.D. PROCEDURE/MINOR SURGICAL ORDERABLES Final Result * MO ARTHCS ASP/INJ MJR LU W US (04/30/2019 1:30 PM CDT) Narrative MMODAL - 04/30/2019 1:30 PM CDT Bernard Vázquez M.D. 04/30/2019 4:41 PM Knee site- L knee joint : aspiration and diagnostic-therapeutic injection Date/Time: 04/30/2019 4:40 PM Performed by: Bernard Vázquez M.D. Authorized by: Bernard Vázquez M.D. Care team members present 1. Carine Underwood L.P.N. PROCEDURE DETAILS Procedure Location knee Knee site: L knee joint Site prep: patient was prepped and draped in usual sterile fashion Patient position: supine Procedural approach: anterolateral Procedure performed: aspiration and diagnostic-therapeutic injection Needle gauge: 18 G, length: 3 in Image guidance Ultrasound The use of direct ultrasound visualization of the needle was required (rather than a non-guided injection) to ensure accurate injection delivery and to maximize clinical benefit beyond that obtained with a non-guided injection. Additionally, there can be diagnostic specificity when evaluating effectiveness of the injection, and for safety purposes to minimize risk of bleeding or injury to surrounding structures. Additional procedure details or diagnostic findings may be noted under Other procedure detail in this note. Images have been archived in [employer]: click the 'Dept Filter' button in [employer], then the 'Clear (Show All)' button, then OK. Images saved: yes Pre-procedure image guidance used to localize target and identify at risk structures, and plan approach and site was marked using indelible marker. Probe: linear mid-frequency Needle approach: lateral to medial Ultrasound visualization: in-plane SPECIMENS Aspirate volume (mL): 25, appearance: clear and straw color Procedural Medication The following medications were administered at the target site(s) Local anesthetic: 3 mL lidocaine 10 mg/mL (1 %); 2 mL ropivacaine (PF) 5 mg/mL (0.5 %); 2 mL lidocaine 20 mg/mL Corticosteroid: 40 mg methylPREDNISolone acetate 40 mg/mL CONSENT Consent obtained: verbal and written UNIVERSAL PROTOCOL All relevant documentation and testing were reviewed and available. All required blood products, implants, devices and or special equipment were made available as applicable. Pre-procedure verification was conducted and the correct site was marked if required. A fire risk assessment was done as applicable. The procedural time-out was conducted prior to performing the procedure and confirmed in a procedural pause. PRE-PROCEDURE DETAILS Procedure purpose: diagnostic and therapeutic Indications: Left knee joint effusion and pain Appropriate hand hygiene, gown, cap, mask, protective eyewear, sterile gloves, skin preparation, sterile drape, and strict aseptic technique were utilized as applicable for the procedure: yes Skin preparation: chlorhexidine All relevant documentation and testing were reviewed and available. All required blood products, implants, devices and/or special equipment were made available as applicable. The pre-procedure verification was conducted, the correct site was marked if required, and the procedural time out was conducted prior to performing the procedure and confirmed in a procedural pause: yes POST-PROCEDURE DETAILS Procedure completed successfully: yes Complications: no apparent complications Post-procedure instructions: avoid strenuous activity for 5 days, avoid submersion of procedure site for 24 hours and post-procedure activity instructions provided Discharge instructions: ice area as needed for comfort and medications and side effects us Bernard Vázquez M.D. PROCEDURE/MINOR SURGICAL ORDERABLES Final Result MMODAL NA * MR Brain without and with IV Contrast (04/04/2019 12:31 PM CDT) Anatomical Region Laterality Modality Head, Brain, Neuroradiology RST LOS, Neuroradiology ARZ LOS, Neuroradiology FLA LOS N/A Magnetic Resonance 04/04/2019 12:4 6 PM CDT Impressions 04/04/2019 1:03 PM CDT Mild chronic microangiopathy. Narrative 04/04/2019 1:03 PM CDT EXAM: MR BRAIN WITHOUT AND WITH IV CONTRAST COMPARISON:None FINDINGS: There is mild chronic microangiopathy within cerebral white matter. There is mild generalized cerebral and cerebellar volume loss. Negative for acute intracranial hemorrhage, herniation, mass, or acute infarct. Small mucosal thickening within bilateral maxillary sinuses. Procedure Note Apollo Ruiz M.D. - 04/04/2019 EXAM: MR BRAIN WITHOUT AND WITH IV CONTRAST COMPARISON:None FINDINGS: There is mild chronic microangiopathy within cerebral whitematter. There is mild generalized cerebral and cerebellar volume loss. Negativefor acute intracranial hemorrhage, herniation, mass, or acute infarct. Smallmucosal thickening within bilateral maxillary sinuses. IMPRESSION: Mild chronic microangiopathy. Slime Esquivel D.O. IMMaria M MRI PROCEDURES Fi nal Result * MR Lumbar Spine without IV Contrast (04/04/2019 12:13 PM CDT) Anatomical Region Laterality Modality Lumbar Spine, Neuroradiology RST LOS, Neuroradiology ARZ LOS, Neuroradiology FLA LOS N/A Magnetic Resonance 04/04/2019 12:1 3 PM CDT Impressions 04/04/2019 12:22 PM CDT 1. Severe degenerative lumbar spondylosis. 2. Postop left L4 hemilaminotomy. 3. At L4-5, compression of the exiting left L4 nerve root in the neural foramen. Moderate central canal stenosis. Narrative 04/04/2019 12:22 PM CDT EXAM: MR LUMBAR SPINE WITHOUT IV CONTRAST COMPARISON: None FINDINGS: There is multilevel generalized disc bulges, disc desiccation, disc height loss, and disc endplate spurring. There is multilevel facet hypertrophy from degenerative joint disease with thickening of the ligamentum flavum. Additional level by level change is detailed below: T12-L1: No stenosis. L1-2: No stenosis. L2-3: Mild central canal stenosis. Mild bilateral foraminal stenoses. Mild right lateral recess stenosis. L3-4: Mild central canal stenosis. Moderate bilateral lateral recess stenoses. Mild bilateral foraminal stenoses. L4-5: Postop left L4 hemilaminotomy. Moderate central canal stenosis. Moderate bilateral lateral recess stenoses. Moderate bilateral foraminal stenoses. There is compression of the exiting left L4 nerve root in the neural foramen (series 6 image 3). L5-S1: Disc has central annular fissure (series 5 image 9). Mild bilateral foraminal stenoses. Alignment: Normal Bone Marrow: Discogenic marrow edema and fatty infiltration of the endplates at L3-4 and L4-5. Conus: Normal termination Extra-spinal Findings: Bilateral sacroiliac degenerative joint disease. Ectasia of the infrarenal abdominal aorta up to 2.8 cm in diameter. 3 cm right renal cyst. For the purpose of this report, 5 lumbar type vertebral bodies are assumed. Close radiographic correlation recommended prior to any spinal intervention or surgery. Procedure Note Apollo Ruiz M.D. - 04/04/2019 EXAM: MR LUMBAR SPINE WITHOUT IV CONTRAST COMPARISON: None FINDINGS: There is multilevel generalized disc bulges, disc desiccation,disc height loss, and disc endplate spurring. There is multilevel facethypertrophy from degenerative joint disease with thickening of the ligamentumflavum. Additional level by level change is detailed below: T12-L1: No stenosis. L1-2: No stenosis. L2-3: Mild central canal stenosis. Mild bilateral foraminal stenoses.Mild right lateral recess stenosis. L3-4: Mild central canal stenosis. Moderate bilateral lateral recessstenoses. Mild bilateral foraminal stenoses. L4-5: Postop left L4 hemilaminotomy. Moderate central canal stenosis.Moderate bilateral lateral recess stenoses. Moderate bilateral foraminal stenoses.There is compression of the exiting left L4 nerve root in the neural foramen(series 6 image 3). L5-S1: Disc has central annular fissure (series 5 image 9). Mildbilateral foraminal stenoses. Alignment: Normal Bone Marrow: Discogenic marrow edema and fatty infiltration of theendplates at L3-4 and L4-5. Conus: Normal termination Extra-spinal Findings: Bilateral sacroiliac degenerative joint disease.Ectasia of the infrarenal abdominal aorta up to 2.8 cm in diameter. 3 cm rightrenal cyst. For the purpose of this report, 5 lumbar type vertebral bodies areassumed. Close radiographic correlation recommended prior to any spinalintervention or surgery. IMPRESSION: 1. Severe degenerative lumbar spondylosis. 2. Postop left L4 hemilaminotomy. 3. At L4-5, compression of the exiting left L4 nerve root in the neural foramen. Moderate central canal stenosis. Slime ELMORE MRI PROCEDURES Fi nal Result * External Lab Results - Manual Entry (02/27/2019 12:00 PM CDT) EXT Fecal Occult Blood OTHER (SPECIFY IN SALES MARKET LEADER) Comment:negative Stool (Stool) 02/27/2019 12: 00 PM CDT Historical Provider LAB BLOOD ADD-ON Final Resul t Performing Organization Address City/[facility]/ZIP Co de Phone Number OTHER (SPECIFY IN SALES MARKET LEADER) N/A * Occult Blood - 1, Fecal (02/27/2019 12:00 PM CDT) Stool (Stool) 02/27/2019 12: [address] [facility] Historical Provider LAB MICROBIOLOGY - GENERAL O RDERABLES Final Result Performing Organization Address City/[facility] Co de Phone Number OTHER (SPECIFY IN SALES MARKET LEADER) N/A * Automated Differential (06/28/2017 4:16 PM CDT) Only the most recent of10 resultswithin the time period is included. Absolute Neutrophils 2.85 1.70 - 7.00 109L POWERCHART Lymphocytes 2.01 0.90 - 2.90 X109L POWERCHART Monocytes 0.45 0.30 - 0.90 X109L POWERCHART Eosinophils 0.24 0.05 - 0.50 X109L POWERCHART Absolute Basophil 0.03 0.00 - 0.30 X109L POWERCHART Blood 06/28/2017 4:16 PM CDT 06/28/2017 4:[address] [facility] Aravind Burns M.D. LAB BLOOD ADD-ON Edited R esult - Final Performing Organization Address [facility] de Phone Number POWERCHART NA * Thyroid-Stimulating Hormone-Sensitive (s-TSH) (10/02/2016 10:02 AM BARREL MAKER) TSH (Thyrotropin) 1.45 0.27 - 4.20 MIUL POWERCHART Comment: Biotin has been identified by the project admin as a potential interfering substance. Higher concentrations of biotin may be found in multivitamins, hair/nail supplements, and workout supplements. If the result does not match clinical observations, repeat testing after patient refrains from the use of supplements for at least 12 hours. Blood 10/02/2016 10:0 2 [address] MA[address] Result [facility] Kiran Cat M.D. LAB BLOOD ADD-ON Final Resu lt Performing Organization Address [facility] Co de Phone Number POWERCHART * HXQUANTIFERON TB-GOLD (04/13/2016 1:04 PM CDT) [facility] QuantiFERON-TB Gold Result Negative Negative POWERCHART Comment: No interferon-gamma response to M. tuberculosis antigens was detected. Infection with M. tuberculosis is unlikely. A negative result alone does not exclude infection with M. tuberculosis. For detailed information regarding test interpretation see: [email or web address]/test-catalog/ Clinical+and+Interpretive/72824 HX TB Ag-Nil Result -[place] 0.01 INTUML POWERCHART HX Mitogen Iwr-Zedoqu-Priq >10.00 INTUML POWERCHART HX Nil Result-[place] 0.03 INTUML POWERCHART Comment: Test Performed by: [place] [address] Hotel Assistant Manager: Raudel Dewey II, M.D., Ph.D. Blood 04/13/2016 1:04 PM CDT us Aravind Burns M.D. LAB HISTORICAL ORDERS Fin al Result Performing Organization Address [facility] de Phone Number POWERCHART * MR Pelvis without and with IV Contrast (01/25/2016 12:25 PM CDT) Anatomical Region Laterality Modality Pelvis N/A Magnetic Resonan ce 01/25/2016 12:2 5 PM CDT Impressions 01/25/2016 4:20 PM CDT 1. Trace enhancement of the inferior sacroiliac joints, with symmetric secondary osteoarthritis. 2. 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 3. Marked synovitis of the left hip. Mild synovitis of the right hip. FINDINGS: Trace enhancement of the inferior sacroiliac joints on series 7, image fourteen and series 9, image eleven. These joints demonstrate symmetric narrowing and mild spurring. No sacroiliac joint effusion. Mild parasyndesmophytes present at L3-L4 and L4-L5, with mild enhancement, seen best on series 9, image nineteen. There is moderate to severe disc space height loss at these levels, with mild enhancement of the endplates and vertebral bodies. Moderate to severe joint effusion and synovitis of the left hip with small right hip joint effusion/synovitis. Probable fraying and tearing of the anterosuperior acetabular labrums, bilaterally. Mild benign fibrocystic changes left femoral head neck junction. At least mild partial thickness articular cartilage loss from the bilateral hip joints. Moderate right and mild left gluteus minimus insertional tendinopathy. Mild right and left greater trochanteric bursitis. Mild prostatic enlargement. Fat-containing left inguinal hernia. Small right renal cyst. .9NaCl, 2.50 milliliter Electronically signed by: Rod Bryant M.D. [phone] 25-Jan-2016 16:20 Sylvia Richey MD [phone] 25-Jan-2016 16:20 Narrative 01/25/2016 4:20 PM CDT 25-Jan-2016 12:25:00 Exam: MRI PELVIS wo&w Indications: Sacroiliitis;Arthritis Inflammatory ORIGINAL REPORT - 25-Jan-2016 16:20:00 EXAM: MRI PELVIS wo&w COMPARISON: Radiographs 01/04/2016. Procedure Note Rod Bryant M.D. - 12/20/2017 25-Jan-2016 12:25:00 Exam: MRI PELVIS wo&w Indications: Sacroiliitis;Arthritis Inflammatory ORIGINAL REPORT - 25-Jan-2016 16:20:00 EXAM: MRI PELVIS wo&w COMPARISON: Radiographs 01/04/2016. IMPRESSION: 1. Trace enhancement of the inferior sacroiliac joints, with symmetricsecondary osteoarthritis. 2. 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 3. Marked synovitis of the left hip. Mild synovitis of the right hip. FINDINGS: Trace enhancement of the inferior sacroiliac joints on series 7,image fourteen and series 9, image eleven. These joints demonstratesymmetric narrowing and mild spurring. No sacroiliac joint effusion. Mild parasyndesmophytes present at L3-L4 and L4-L5, with mild enhancement,seen best on series 9, image nineteen. There is moderate to severe discspace height loss at these levels, with mild enhancement of the endplatesand vertebral bodies. Moderate to severe joint effusion and synovitis of the left hip with smallright hip joint effusion/synovitis. Probable fraying and tearing of the anterosuperior acetabular labrums,bilaterally. Mild benign fibrocystic changes left femoral head neckjunction. At least mild partial thickness articular cartilage loss fromthe bilateral hip joints. Moderate right and mild left gluteus minimus insertional tendinopathy.Mild right and left greater trochanteric bursitis. Mild prostaticenlargement. Fat-containing left inguinal hernia. Small right renal cyst. .9NaCl, 2.50 milliliter Electronically signed by: Rod Bryant M.D. [phone] 25-Jan-2016 16:20 Sylvia Richey MD [phone] 16:20 us Aravind Burns M.D. IMG MRI PROCEDURES Final Result * DX Sacroiliac Joints 3+ Views (01/04/2016 10:13 AM CDT) Anatomical Region Laterality Modality Sacral Spine N/A Radiographic Olesya ging 01/04/2016 10:1 3 AM CDT Addenda Addendum by Tarah Vallecillo M.D. on 01/04/2016 10:13 AM CDT RAD^^^AU XR Sacroiliac Joints 3 or more views 01/04/2016 10:13:43 Impressions 01/04/2016 10:28 AM CDT Minimal sclerosis without convincing erosive change involving both SI joints. Mild sacroiliitis cannot be excluded. Contrast-enhanced MRI could be considered in the appropriate clinical setting. FINDINGS: Minimal subchondral sclerosis involving both lower SI joints seen best on oblique views. No convincing erosive change. 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 Mild degenerative changes both hips and pubic symphysis. Narrative 01/04/2016 10:28 AM CDT EXAM: XR Sacroiliac Joints 3 or more views INDICATION: ? anamika sacroiliitis AGE: 65 years-old COMPARISON: None. Procedure Note Diogo Conrad M.D. / ProviderTarah M.D. - 01/26/2017 EXAM: XR Sacroiliac Joints 3 or more views INDICATION: ? anamika sacroiliitis AGE: 65 years-old COMPARISON: None. IMPRESSION: Minimal sclerosis without convincing erosive change involving both SI joints. Mild sacroiliitis cannot be excluded. Contrast-enhanced MRI could be considered in the appropriate clinical setting. FINDINGS: Minimal subchondral sclerosis involving both lower SI joints seen best on oblique views. No convincing erosive change. 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 Mild degenerative changes both hips and pubic symphysis. Berta Nagel Singh [facility] [place] [facility] PROCEDUR ES Edited Result - Final * Pathology Surgical Pathology (12/07/2015 3:56 PM CDT) 12/07/2015 3:56 PM CDT Narrative [facility] LAB - 12/08/2015 1:38 PM CDT [facility] in [address] [place] [id number] Patient Name: SANDRA YUN Collected: 12/07/2015 Address: [facility]/Zip: [address] [place] [id number] Received: Reported: 12/07/2015 12/08/2015 Soc. Sec. #: /Age/Sex 1950 (Age: 65) M Physician(s): JANI LUGO M.D. 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 SOFT TISSUE, RIGHT VOLAR RADIUS (B): --- RHEUMATOID NODULE WITH DEGENERATIVE FIBRINOID DEBRIS. --- SLIDE PREPARATION FOR CRYSTALS NEGATIVE FOR GOUT. christina/12/08/2015 JOMAR MANCIA M.D. Report electronically released. Interpretation by JOMAR MANCIA M.D. SPECIMEN(S) RECEIVED: 1:A. RIGHT VOLAR RADIUS WRIST MASS (SUBMITTED IN FORMALIN) 2:B. RIGHT VOLAR RADIUS WRIST MASS (FRESH) CLINICAL HISTORY: CHECK FOR CRYSTALS 1 SPECIMEN SENT WITHOUT FORMALIN RHEUMATOID ARTHRITIS / GOUT GROSS DESCRIPTION: A. Submitted as right wrist mass check for crystals and submitted in formalin, is yellow gong soft tissue, 1.5 cm in greatest dimension. Sectioning reveals a cystic space. RS, one cassette. A slide is made for crystals. B. Submitted as right wrist mass check for crystals is fresh yellow gong soft tissue, 1 cm in greatest dimension. ESB, one cassette. A slide is made for crystals. ([id number]) [facility]/12/07/2015 MICROSCOPIC DESCRIPTION: Reviewed by Jomar Mancia M.D.; Pathologist TL/12/08/2015 Zainab Lugo M.D. LAB SURG PATH ORDERABLES Sonia l Result Performing Organization Address City/[facility]/ZIP Co de Phone Number LCM LAB * HX-Myco Cult Rslt (12/07/2015 8:57 AM CDT) Mycobacterial Culture See Comment POWERCHART 12/07/2015 8:57 AM CDT Narrative POWERCHART - 02/06/2016 1:30 AM CDT SOURCE: WRIST, Right wrist mass MYCOBACTERIAL CULTURE FINAL No growth after 60 days of incubation. Test Performed by: [place] [address] Hotel Assistant Manager: Raudel Dewey II, M.D., Ph.D. Zainab Lugo M.D. LAB HISTORICAL ORDERS Final R esult Performing Organization Address [facility] Co de Phone Number POWERCHART * HX-Fungus Culture Rslt (12/07/2015 8:57 AM CDT) Culture Referred for ID, Fungus See Comment POWERCHART 12/07/2015 8:57 AM CDT Narrative POWERCHART - 02/06/2016 1:30 AM CDT SOURCE: WRIST, right wrist mass FUNGAL CULTURE, ROUTINE FINAL No growth after 24 days of incubation. Test Performed by: [place] [address] Hotel Assistant Manager: Raudel Dewey II, M.D., Ph.D. Zainab Lugo M.D. LAB HISTORICAL ORDERS Final R esult Performing Organization Address [facility] de Phone Number POWERCHART * HX-Ting Bact Rslt (12/07/2015 8:57 AM CDT) Bacterial Culture, Anaerobic See Comment POWERCHART 12/07/2015 8:57 AM CDT Narrative POWERCHART - 12/21/2015 9:16 AM CDT SOURCE: WRIST, Right Wrist Mass BACTERIAL CULTURE, ANAEROBIC FINAL No growth after 14 days of incubation. Test Performed by: [place] [address] Hotel Assistant Manager: Raudel Dewey II, M.D., Ph.D. Zainab Lugo M.D. LAB HISTORICAL ORDERS Final R esult Performing Organization Address [facility] de Phone Number POWERCHART * HX-Aero Bact Rslt (12/07/2015 8:57 AM CDT) HXAero Bact Rslt-[place] See Comment POWERCHART 12/07/2015 8:57 AM CDT Narrative POWERCHART - 12/21/2015 9:16 AM CDT SOURCE: WRIST, Right Wrist Mass BACTERIAL CULTURE, AEROBIC FINAL No growth after 5 days of incubation. Test Performed by: [place] [address] Hotel Assistant Manager: Raudel Dewey II, M.D., Ph.D. Zainab Lugo M.D. LAB HISTORICAL ORDERS Final R esult Performing Organization Address [facility] de Phone Number POWERCHART * US Aorta (11/23/2015 9:00 AM BARREL MAKER) Anatomical Region Laterality Modality Abdomen, Pelvis N/A Ultrasound 11/23/2015 9:00 AM BARREL MAKER Addenda Addendum by ProviderTarah M.D. on 11/23/2015 9:00 AM BARREL MAKER RAD^^^AU US Abdominal Aorta 11/23/2015 09:00:00 Impressions 11/23/2015 9:29 AM BARREL MAKER Mild distal abdominal aortic ectasia. No evidence of aneurysm. FINDINGS: The proximal abdominal aorta measures 2.6 cm in AP diameter x 2.7 cm in transverse diameter. The mid abdominal aorta measures 2.0 cm in AP diameter x 2.0 cm in transverse diameter. The distal abdominal aorta is ectatic measuring 2.6 cm in AP diameter x 2.6 cm in transverse diameter. Bilateral proximal common iliac arteries demonstrate normal caliber. Narrative 11/23/2015 9:29 AM BARREL MAKER Exam: US Abdominal Aorta Indication: screen for aneurysm Comparison: None Procedure Note Sherif Peters M.D. / Tarah Vallecillo M.D. - 01/26/2017 Exam: US Abdominal Aorta Indication: screen for aneurysm Comparison: None IMPRESSION: Mild distal abdominal aortic ectasia. No evidence of aneurysm. FINDINGS: The proximal abdominal aorta measures 2.6 cm in AP diameter x 2.7 cm in transverse diameter. The mid abdominal aorta measures 2.0 cm in AP diameter x 2.0 cm in transverse diameter. The distal abdominal aorta is ectatic measuring 2.6 cm in AP diameter x 2.6 cm in transverse diameter. Bilateral proximal common iliac arteries demonstrate normal caliber. us Maxine Copeland R.V.T., R.D.M.S. IMG US PROCEDURE S Edited Result - Final * MR Upper Extremity Non Joint (10/06/2015 8:11 AM BARREL MAKER) Anatomical Region Laterality Modality Magnetic Resonan ce 10/06/2015 8:11 AM BARREL MAKER Impressions 10/06/2015 9:13 AM BARREL MAKER There are extensive, polyarticular destructive changes including periarticular inflammation and erosions involving multiple carpal bones and the distal radius and ulna. Extensive enhancing synovium/pannus about the distal radioulnar joint and the carpus. There is also inflammatory change surrounding the right 3rd MCP joint with intraosseous extension of a large ganglion cyst into the right 3rd metacarpal. Extensive tear of synovial fluid within the flexor carpi radialis. Findings are consistent with clinically suspected seronegative rheumatoid arthritis with crystalline arthropathy felt to be an additional, although much less likely, diagnostic consideration. .9NaCl, 2.50 milliliter Electronically signed by: Chintan Acosta MD. [id number] 06-Oct-2015 09:13 Reza Shelton MD [phone] 06-Oct-2015 09:13 Robe Prince MD [phone] 06-Oct-2015 09:13 Sylvia Richey MD [phone] 06-Oct-2015 09:13 Narrative 10/06/2015 9:13 AM BARREL MAKER 06-Oct-2015 08:11:00 Exam: R MRI UE NON-JOINT wo&w Indications: Arthritis Inflammatory ORIGINAL REPORT - 06-Oct-2015 09:13:00 EXAM: MRI Upper Extremity non-joint without and with IV contrast RIGHT COMPARISON: [facility] radiographs 09/28/2015 FINDINGS/ Procedure Note Zackary Acosta M.D. - 12/20/2017 06-Oct-2015 08:11:00 Exam: R MRI UE NON-JOINT wo&w Indications: Arthritis Inflammatory ORIGINAL REPORT - 06-Oct-2015 09:13:00 EXAM: MRI Upper Extremity non-joint without and with IV contrast RIGHT COMPARISON: [facility] radiographs 09/28/2015 FINDINGS/IMPRESSION: There are extensive, polyarticular destructivechanges including periarticular inflammation and erosions involvingmultiple carpal bones and the distal radius and ulna. Extensive enhancingsynovium/pannus about the distal radioulnar joint and the carpus. There isalso inflammatory change surrounding the right 3rd MCP joint withintraosseous extension of a large ganglion cyst into the right 3rdmetacarpal. Extensive tear of synovial fluid within the flexor carpiradialis. Findings are consistent with clinically suspected seronegative rheumatoidarthritis with crystalline arthropathy felt to be an additional, althoughmuch less likely, diagnostic consideration. .9NaCl, 2.50 milliliter Electronically signed by: Chintan Acosta MD. [phone] 06-Oct-2015 09:13 Reza Shelton MD [phone] 09:13 Robe Prince MD [phone] 06-Oct-2015 09:13Sylvia Richey MD [phone] 06-Oct-2015 09:13 Aravind Burns M.D. IMG MRI PROCEDURES Final Result * DX Hand Bilateral 3 Views (09/28/2015 4:32 PM BARREL MAKER) Anatomical Region Laterality Modality Upper Extremity, Hand Bilateral Radiograph ic Imaging 09/28/2015 4:32 PM BARREL MAKER Addenda Addendum by ProviderTarah M.D. on 09/28/2015 4:32 PM BARREL MAKER RAD^^^AU XR Hand Bilateral 3 views 09/28/2015 16:32:39 Impressions 09/28/2015 5:04 PM BARREL MAKER See below findings. FINDINGS: Right hand: Prominent erosion with corticated smooth margins and overhanging proximal margin in the distal medial radial metaphysis, best seen on the oblique projection, has not appreciably changed. Consider sequelae of old trauma. Rule out gout Stable smooth erosion in the central base of the right second metacarpal. Osteopenia. Moderate narrowing in the radiocarpal joint, stable. Prominent narrowing in the right third metacarpophalangeal joint. Moderate degenerative change in the right first carpometacarpal joint. No evidence of fracture or dislocation. Left wrist: Mild to moderate degenerative change in the left first carpometacarpal joint. Osteopenia. Stable smooth corticated erosion in the base of the left second metacarpal. No evidence of acute fracture or dislocation. Narrative 09/28/2015 5:04 PM BARREL MAKER EXAM: XR Hand Bilateral 3 views INDICATION: inflam arthr wr also left 23 mcp COMPARISON: Bilateral wrist series on on 07 June 2015. Procedure Note Sherif Peters M.D. / ProviderTarah M.D. - 01/26/2017 EXAM: XR Hand Bilateral 3 views INDICATION: inflam arthr wr also left 23 mcp COMPARISON: Bilateral wrist series on on 07 June 2015. IMPRESSION: See below findings. FINDINGS: Right hand: Prominent erosion with corticated smooth margins and overhanging proximal margin in the distal medial radial metaphysis, best seen on the oblique projection, has not appreciably changed. Consider sequelae of old trauma. Rule out gout Stable smooth erosion in the central base of the right second metacarpal. Osteopenia. Moderate narrowing in the radiocarpal joint, stable. Prominent narrowing in the right third metacarpophalangeal joint. Moderate degenerative change in the right first carpometacarpal joint. No evidence of fracture or dislocation. Left wrist: Mild to moderate degenerative change in the left first carpometacarpal joint. Osteopenia. Stable smooth corticated erosion in the base of the left second metacarpal. No evidence of acute fracture or dislocation. Leslie Lea(R)(C T), Venu(R) IMG DIAGNOSTIC IMAGING PROCEDURES Edited Result - Final * Lyme Disease Serology, Serum (09/28/2015 4:30 PM BARREL MAKER) [facility] Lyme Disease Serology, S Negative Negative POWERCHART Comment: Serologic response to B. burgdorferi infection is not detected, but cannot rule out early infection during which low or undetectable antibody levels to B. burgdorferi may be present. If clinically indicated, a new serum specimen should be submitted in 7-14 days. Test Performed by: [place] [address] Hotel Assistant Manager: Raudel Dewey II, M.D., Ph.D. Blood 09/28/2015 4:30 PM BARREL MAKER Aravind Burns M.D. LAB MICROBIOLOGY - BLOOD ORDERABLES Edited Result - Final Performing Organization Address [facility] Co de Phone Number POWERCHART * HCV Ab w/Reflex to HCV PCR, S (09/28/2015 4:30 PM BARREL MAKER) [facility] HXHCV Ab [facility] Negative Negative POWERCHART Comment: Oajwxq-te-xecpul ratio is <1.00. Test Performed by: [place] [address] Hotel Assistant Manager: Raudel Dewey II, M.D., Ph.D. Blood 09/28/2015 4:30 PM BARREL MAKER Aravind Burns M.D. LAB MICROBIOLOGY - BLOOD ORDERABLES Edited Result - Final Performing Organization Address [facility] Co de Phone Number POWERCHART * HLA-B27 (09/28/2015 4:30 PM BARREL MAKER) [facility] HLA-B27 Result Negative Not Applicable POWERCHART HXHLA B27 [facility] See Comment POWERCHART Comment: RESULT: HLA-B27 antigen was not detected. ADDITIONAL INFORMATION Method: Flow Cytometry Performing Laboratory CLIA# [id number] Test Performed by: [place] [address] Hotel Assistant Manager: Raudel Dewey II, M.D., Ph.D. Blood 09/28/2015 4:30 PM BARREL MAKER us Aravind Burns M.D. LAB BLOOD NON ADD-ON Edit ed Result - Final Performing Organization Address [facility] de Phone Number POWERCHART * (ABNORMAL) Iron and Total Iron-Binding Capacity (09/28/2015 4:30 PM BARREL MAKER) Iron 37(L) 50 - 150 UGDL POWERCHART Percent Saturation 12(L) 14 - 50 POWERCHART Total Iron Binding Capacity 296 250 - 400 UGDL POWERCHART Blood 09/28/2015 4:30 PM BARREL MAKER us Aravind Burns M.D. LAB BLOOD ADD-ON Edited R esult - Final Performing Organization Address [facility] de Phone Number POWERCHART * Hepatitis B Core Total Ab (09/28/2015 4:30 PM BARREL MAKER) HBc Total Ab, S Negative Negative POWERCHART Comment: Test Performed by: [place] [address] Hotel Assistant Manager: Raudel Dewey II, M.D., Ph.D. Blood 09/28/2015 4:30 PM BARREL MAKER us Aravind Burns M.D. LAB MICROBIOLOGY - BLOOD ORDERABLES Edited Result - Final Performing Organization Address [facility] de Phone Number POWERCHART * 25-Hydroxyvitamin D2 and D3 (09/28/2015 4:30 PM BARREL MAKER) HX25 HYDROXY D2 <4.0 NGML POWERCHART 25-Hydroxy D3 33 NGML POWERCHART Vitamin D, S 33 NGML POWERCHART Comment: REFERENCE VALUE 25-HYDROXY D TOTAL (D2+D3) Optimum levels in the healthy population are 20-50, patients with bone disease may benefit from higher levels within this range. Test Performed by: [facility] [place] [place] [address] Hotel Assistant Manager: Raudel Dewey II, M.D., Ph.D. Blood 09/28/2015 4:30 PM BARREL MAKER Aravind Burns M.D. LAB BLOOD ADD-ON Edited [facility] Performing Organization Address [facility] de Phone Number POWERCHART * Uric Acid (09/28/2015 4:30 PM BARREL MAKER) Only the most recent of2 resultswithin the time period is included. Uric Acid, S 5.6 3.4 - 7.0 MGDL POWERCHART Comment:Reference values hav e not been established for patients that are less than 12 months of age. Blood 09/28/2015 4:30 PM BARREL MAKER Aravind Burns M.D. LAB BLOOD ADD-ON Edited [employer] Performing Organization Address [facility] de Phone Number POWERCHART * Electrophoresis Protein (09/28/2015 4:30 PM BARREL MAKER) Total Protein, S 7.4 6.3 - 7.9 GMDL POWERCHART Albumin, S 3.5 3.4 - 4.7 GMDL POWERCHART Alpha-1 Globulin 0.3 0.1 - 0.3 GMDL POWERCHART Alpha-2 Globulin 1.0 0.6 - 1.0 GMDL POWERCHART Beta-Globulin 1.0 0.7 - 1.2 GMDL POWERCHART Gamma-Globulin 1.6 0.6 - 1.6 GMDL POWERCHART A/G Ratio 0.89 POWERCHART Impression See Comment POWERCHART Comment: RESULT: No apparent monoclonal protein on serum electrophoresis. Test Performed by: [facility] [place] [place] [address] Hotel Assistant Manager: Raudel Dewey II, M.D., Ph.D. Blood 09/28/2015 4:30 PM BARREL MAKER Aravind Burns M.D. LAB BLOOD ADD-ON Edited R esult - Final Performing Organization Address [facility] de Phone Number POWERCHART * Ferritin (09/28/2015 4:30 PM BARREL MAKER) Ferritin, S 103 30 - 400 MCGL POWERCHART Blood 09/28/2015 4:30 PM BARREL MAKER Aravind Burns M.D. LAB BLOOD ADD-ON Edited R [employer] - Final Performing Organization Address [facility] de Phone Number POWERCHART * Calcium, Total (09/28/2015 4:30 PM BARREL MAKER) Calcium, Total, S 9.6 8.8 - 10.3 MGDL POWERCHART Blood 09/28/2015 4:30 PM BARREL MAKER Aravind Burns M.D. LAB BLOOD ADD-ON Edited R [employer] - Final Performing Organization Address [facility] de Phone Number POWERCHART * Rheumatoid Factor (06/10/2015 10:27 AM CDT) Rheumatoid Factor, S <10 <=13 IUML POWERCHART Blood 06/10/2015 10:2 7 AM CDT Zainab Lugo M.D. LAB BLOOD ADD-ON Final Result Performing Organization Address [facility] de Phone Number POWERCHART * Cyclic Citrullinated Peptide Antibodies, IgG (06/09/2015 10:27 AM CDT) Cyclic Citrullinated Peptide Ab, S <15.6 <20.0 (Negative) UNITS POWERCHART Comment: Test Performed by: [address] [address] Hotel Assistant Manager: Raudel Dewey II, M.D., Ph.D. Blood 06/09/2015 10:2 7 AM CDT Zainab Lugo M.D. LAB BLOOD ADD-ON Final Result Performing Organization Address [facility] de Phone Number POWERCHART * TING (Antinuclear Antibodies) (06/09/2015 10:27 AM CDT) Antinuclear Ab Screen by IFA, S 0.3 <=1.0 (Negative) UNITS POWERCHART Comment: Test Performed by: [place] [address] Hotel Assistant Manager: Raudel Dewey II, M.D., Ph.D. Blood 06/09/2015 10:2 7 AM CDT Zainab Lugo M.D. LAB BLOOD ADD-ON Final Result Performing Organization Address [facility] de Phone Number POWERCHART * DX Wrist Right 3+ Views (06/07/2015 1:48 PM CDT) Anatomical Region Laterality Modality Upper Extremity, Wrist Right Radiograp hic Imaging 06/07/2015 1:48 PM CDT Addenda Addendum by ProviderTarah M.D. on 06/07/2015 1:48 PM CDT RAD^^^AU XR Wrist Right 3 or more views 06/07/2015 13:48:54 Impressions 06/07/2015 2:36 PM CDT Unusual focal demineralization in the medial side of the distal radius. Soft tissue swelling lateral to the distal radius. Narrative 06/07/2015 2:36 PM CDT EXAM: XR Wrist Right 4 views including an AP view INDICATION: pain COMPARISON: Left wrist today FINDINGS: Soft tissue swelling palmar and lateral to the distal radius. Osteopenia. Chondrocalcinosis triangular fibrocartilage. Erosion from the lateral base of the trapezium. No fracture. Slight diastases between the lunate and the scaphoid. If a fracture of the scaphoid is suspected, a navicular view would then be suggested. Erosion medial side of the metaphysis of the radius. No periosteal elevation or apparent foreign body. Normal position of the ulna relative to the radius. Procedure Note Raudel Dey M.D. / Tarah Vallecillo M.D. - 01/31/2017 EXAM: XR Wrist Right 4 views including an AP view INDICATION: pain COMPARISON: Left wrist today FINDINGS: Soft tissue swelling palmar and lateral to the distal radius. Osteopenia. Chondrocalcinosis triangular fibrocartilage. Erosion from the lateral base of the trapezium. No fracture. Slight diastases between the lunate and the scaphoid. If a fracture of the scaphoid is suspected, a navicular view would then be suggested. Erosion medial side of the metaphysis of the radius. No periosteal elevation or apparent foreign body. Normal position of the ulna relative to the radius. IMPRESSION: Unusual focal demineralization in the medial side of the distal radius. Soft tissue swelling lateral to the distal radius. Gina Gifford R.TJorgito(R), R.TJorgito(R)(M) IMG DIAGNOSTIC IMAGING PROCEDURES Edited Result - Final * DX Wrist Left 3+ Views (06/07/2015 1:48 PM CDT) Anatomical Region Laterality Modality Upper Extremity, Wrist Left Radiograp hic Imaging 06/07/2015 1:48 PM CDT Addenda Addendum by Tarah Vallecillo M.D. on 06/07/2015 1:48 PM CDT RAD^^^AU XR Wrist Left 3 or more views 06/07/2015 13:48:54 Impressions 06/07/2015 2:10 PM CDT Osteopenia. Narrative 06/07/2015 2:10 PM CDT EXAM: XR Wrist Left 3 or more views INDICATION: pain COMPARISON: Right wrist today. FINDINGS: Osteopenia. Normal alignment. No fracture. Chondrocalcinosis triangular fibrocartilage. If a fracture of the scaphoid is suspected, a navicular view would then be suggested. Procedure Note Raudel Dey M.D. / Tarah Vallecillo M.D. - 01/31/2017 EXAM: XR Wrist Left 3 or more views INDICATION: pain COMPARISON: Right wrist today. FINDINGS: Osteopenia. Normal alignment. No fracture. Chondrocalcinosis triangular fibrocartilage. If a fracture of the scaphoid is suspected, a navicular view would then be suggested. IMPRESSION: Osteopenia. Gina Lea(R), Venu(R)(M) IMG DIAGNOSTIC IMAGING PROCEDURES Edited Result - Final * Outside MR MSK (01/11/2015 1:23 PM CDT) 01/11/2015 1:23 PM CDT Addenda Addendum by Tarah Vallecillo M.D. on 01/11/2015 1:23 PM CDT ODM^^^MCR RT UPPER EXT W/O DYE 01/11/2015 13:23:44 Result [facility] Provider IMG MRI PROCEDURES Final Res ult Performing Organization Address City/State/[facility] Co de Phone Number [facility] [address] [place] [address] * Outside DX Skeletal (01/07/2015 9:21 AM CDT) Only the most recent of2 resultswithin the time period is included. 01/07/2015 9:21 AM CDT Addenda Addendum by Tarah Vallecillo M.D. on 01/07/2015 9:21 AM CDT ODM^^^MCR HAND, RIGHT Min 3V 01/07/2015 09:21:51 [facility] Provider IMG DIAGNOSTIC IMAGING PROCE DURES Final Result Performing Organization Address 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 Tinea Corporis 02/05/2018 Sacroiliitis 05/06/2018 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HCC) 05/06/2018 Arthritis Inflammatory (HCC) 05/06/2018 High Risk Medication 05/06/2018 Need Vaccine Immunization 07/10/2018 Sacroiliitis 07/22/2018 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HCC) 07/22/2018 Arthritis Inflammatory (HCC) 07/22/2018 Sacroiliitis 07/25/2018 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HCC) 07/25/2018 Arthritis Inflammatory (HCC) 07/25/2018 Sacroiliitis 09/11/2018 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HCC) 09/11/2018 Arthritis Inflammatory (HCC) 09/11/2018 High Risk Medication 09/11/2018 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HCC) 09/18/2018 Sacroiliitis 09/18/2018 Arthritis Inflammatory (HCC) 09/18/2018 High Risk Medication 09/18/2018 Primary Osteoarthritis Multiple Sites 09/18/2018 Sacroiliitis 02/24/2019 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HCC) 02/24/2019 Arthritis Inflammatory (HCC) 02/24/2019 Pain Low Back Unspecified 03/28/2019 Tremor 03/28/2019 Abnormal Gait Non Orthopedic 03/28/2019 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HCC) 03/28/2019 Arthritis Inflammatory (HCC) 03/28/2019 Loss Memory Short Term 03/28/2019 High Risk Medication 03/28/2019 Health Maintenance Examination Adult 03/28/2019 Annual Medicare Examination Return 04/01/2019 Tremor Essential 04/02/2019 Abnormal Gait Non Orthopedic 04/04/2019 High Risk Medication 04/04/2019 Pain Low Back Unspecified 04/04/2019 Tremor 04/04/2019 Abnormal Gait Non Orthopedic 04/04/2019 Loss Memory Short Term 04/04/2019 Pain Low Back Unspecified 04/08/2019 Tremor 04/11/2019 Abnormal Gait Non Orthopedic 04/11/2019 Loss Memory Short Term 04/11/2019 Tremor Parkinson's (HCC) 04/11/2019 Screening Colon Cancer Average Risk 04/29/2019 Need Vaccine Immunization Shingles Zoster 04/29/2019 Iliotibial Band Syndrome Left 04/29/2019 Bursitis Hip Left 04/29/2019 Effusion Knee Left 04/30/2019 Pain Knee Left 04/30/2019 Myalgia 04/30/2019 Pain Lumbar Myofascial 04/30/2019 Pain Low Back Unspecified 04/30/2019 Radiculopathy Lumbosacral 04/30/2019 Effusion Knee Left 04/30/2019 Pain Knee Left 04/30/2019 Myalgia 04/30/2019 Pain Lumbar Myofascial 04/30/2019 Effusion Knee Left 05/07/2019 Pain Knee Left 05/07/2019 Tremor 05/09/2019 Abnormal Gait Non Orthopedic 05/09/2019 Tremor Parkinson's (HCC) 05/09/2019 Tremor 05/09/2019 Abnormal Gait Non Orthopedic 05/09/2019 Tremor Parkinson's (HCC) 05/09/2019 Radiculopathy Lumbosacral 05/29/2019 Sacroiliitis 06/09/2019 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[facility]) 06/09/2019 Arthritis Inflammatory ([facility]) 06/09/2019 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 Sacroiliitis 07/31/2019 Loss Memory Short Term 07/31/2019 Pain Low Back Unspecified 07/31/2019 Parkinsonism Unspecified (HCC) 07/31/2019 Parkinsonism Unspecified (HCC) 09/05/2019 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[facility]) 09/10/2019 Sacroiliitis 09/10/2019 Arthritis Inflammatory ([facility]) 09/10/2019 High Risk Medication 09/10/2019 Arthritis Inflammatory (HCC) 10/01/2019 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/2019 Sacroiliitis 10/01/2019 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[facility]) 10/01/2019 High Risk Medication 10/01/2019 Primary Osteoarthritis Multiple Sites 10/01/2019 Sacroiliitis 12/10/2019 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HCC) 12/10/2019 Arthritis Inflammatory (HCC) 12/10/2019 Parkinsonism Unspecified (HCC) 12/11/2019 Arthritis Rheumatoid (HCC) 01/13/2020 Sacroiliitis 01/13/2020 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HCC) 01/13/2020 High Risk Medication 01/13/2020 Arthritis Inflammatory (HCC) 01/22/2020 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HCC) 01/22/2020 Sacroiliitis 01/22/2020 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HCC) 01/22/2020 High Risk Medication 01/22/2020 Arthritis Rheumatoid (HCC) 01/22/2020 Parkinsonism Unspecified ([facility]) 02/08/2020 Arthritis Rheumatoid (HCC) 04/14/2020 Pain Knee Left 04/14/2020 Parkinsonism Unspecified (HCC) 04/14/2020 Arthritis Rheumatoid (HCC) 04/14/2020 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HCC) 04/14/2020 Mass Knee Left 04/14/2020 Pain Knee Left 04/22/2020 Pain Knee Left 04/23/2020 Pain Knee Left 04/27/2020 Pain Knee Left 04/27/2020 Pain Knee Left 04/28/2020 Pain Knee Left 04/28/2020 Derangement Posterior Horn Medial Meniscus Due To Old Tear Or Injury Left Knee 04/28/2020 Preoperative Exam 05/04/2020 Derangement Posterior Horn Medial Meniscus Due To Old Tear Or Injury Left Knee 05/04/2020 Murmur Heart 05/04/2020 Murmur Heart 05/07/2020 Derangement Posterior Horn Medial Meniscus Due To Old Tear Or Injury Left Knee 05/07/2020 Infection Upper Respiratory 05/10/2020 Sacroiliitis 05/11/2020 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HCC) 05/11/2020 Arthritis Inflammatory (HCC) 05/11/2020 Arthroscopy Knee Status Post 05/25/2020 Parkinsonism Unspecified (HCC) 06/10/2020 Tremor Essential 06/10/2020 Derangement Posterior Horn Medial Meniscus Due To Old Tear Or Injury Left Knee 06/22/2020 Need Vaccine Immunization Influenza 06/29/2020 Sacroiliitis 10/02/2020 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HCC) 10/02/2020 Arthritis Inflammatory (HCC) 10/02/2020 High Risk Medication 10/02/2020 Parkinsonism Unspecified (HCC) 10/15/2020 Arthritis Rheumatoid (HCC) 10/15/2020 Sacroiliitis 10/15/2020 History Of Falling 10/15/2020 Screening Lipid 10/15/2020 Screening Examination Diabetes Mellitus 10/15/2020 Screening Examination Prostate Cancer 10/15/2020 Sacroiliitis 11/01/2020 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HCC) 11/01/2020 Arthritis Inflammatory (HCC) 11/01/2020 High Risk Medication 11/01/2020 Screening Lipid 11/01/2020 Screening Examination Diabetes Mellitus 11/01/2020 Screening Examination Prostate Cancer 11/01/2020 Arthritis Inflammatory (HCC) 11/01/2020 Sacroiliitis 11/01/2020 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HCC) 11/01/2020 High Risk Medication 11/01/2020 Primary Osteoarthritis Multiple Sites 11/01/2020 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HCC) 11/01/2020 Hyperlipidemia 11/09/2020 Encounter For COVID-19 Vaccine Immunization 11/24/2020 Hyperlipidemia 12/09/2020 Encounter For COVID-19 Vaccine Immunization 12/24/2020 Parkinsonism Unspecified (HCC) 01/19/2021 Arthritis Rheumatoid (HCC) 01/19/2021 Sacroiliitis 01/19/2021 History Of Falling 01/19/2021 Hyperlipidemia 01/19/2021 High Risk Medication 01/19/2021 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HCC) 01/19/2021 Sacroiliitis 01/28/2021 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HCC) 01/28/2021 Arthritis Inflammatory (HCC) 01/28/2021 High Risk Medication 01/28/2021 Cataract Senile Nuclear Sclerosis Bilateral 02/18/2021 Myopia Bilateral 02/18/2021 Membrane Macula Epiretinal Bilateral 02/18/2021 Membrane Macula Epiretinal Bilateral 02/25/2021 Myopia Bilateral 02/25/2021 Sacroiliitis 04/19/2021 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HCC) 04/19/2021 Arthritis Inflammatory (HCC) 04/19/2021 High Risk Medication 04/19/2021 Myopia Bilateral 04/27/2021 Cataract Senile Nuclear Sclerosis Bilateral 04/27/2021 Primary Osteoarthritis Knee Left 06/29/2021 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HCC) 07/21/2021 High Risk Medication 07/21/2021 Tremor Essential 07/21/2021 Parkinsonism Unspecified (HCC) 07/21/2021 History Of Falling 07/21/2021 Pain Wrist Left 07/21/2021 Pain Knee Left 07/21/2021 Sacroiliitis 10/17/2021 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HCC) 10/17/2021 Arthritis Inflammatory (HCC) 10/17/2021 High Risk Medication 10/17/2021 Sacroiliitis 11/01/2021 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HCC) 11/01/2021 Arthritis Inflammatory (HCC) 11/01/2021 High Risk Medication 11/01/2021 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HCC) 11/01/2021 Arthritis Inflammatory (HCC) 11/07/2021 Sacroiliitis 11/07/2021 High Risk Medication 11/07/2021 Primary Osteoarthritis Multiple Sites 11/07/2021 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HCC) 01/19/2022 High Risk Medication 01/19/2022 Tremor Essential 01/19/2022 Parkinsonism Unspecified (HCC) 01/19/2022 Hyperlipidemia 01/19/2022 Screening Examination Diabetes Mellitus 01/19/2022 Pain Knee Left 01/19/2022 Screening Examination Diabetes Mellitus 02/10/2022 Hyperlipidemia 02/10/2022 Myopia Bilateral 02/10/2022 Cataract Senile Nuclear Sclerosis Bilateral 02/10/2022 Sacroiliitis 03/09/2022 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HCC) 03/09/2022 Arthritis Inflammatory (HCC) 03/09/2022 High Risk Medication 03/09/2022 Parkinsonism Unspecified (HCC) 03/10/2022 Pain Knee Left 06/07/2022 Pain Knee Left 06/07/2022 Primary Osteoarthritis Knee Left 06/07/2022 Preoperative Exam 07/04/2022 Preoperative Exam 07/04/2022 Primary Osteoarthritis Knee Left 07/04/2022 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HCC) 07/04/2022 Sacroiliitis 07/04/2022 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HCC) 07/04/2022 Asthma Exercise Induced Bronchospasm (HCC) 07/04/2022 History Of Falling 07/04/2022 Preoperative Exam 07/04/2022 Parkinsonism Unspecified (HCC) 07/04/2022 Hyperkalemia 07/04/2022 Primary Osteoarthritis Knee Left 07/10/2022 Hyperkalemia 07/11/2022 Arthroplasty Total Knee Replacement Status Post Left 07/14/2022 Arthroplasty Total Knee Replacement Status Post Left 07/17/2022 Arthroplasty Total Knee Replacement Status Post Left 08/01/2022 Presence Of Left Artificial Knee Joint 08/10/2022 Arthroplasty Total Knee Replacement Status Post Left 08/25/2022 Primary Osteoarthritis Knee Left 08/25/2022 Arthroplasty Total Knee Replacement Status Post Left 10/06/2022 Sacroiliitis 10/07/2022 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HCC) 10/07/2022 Arthritis Inflammatory (HCC) 10/07/2022 High Risk Medication 10/07/2022 Arthritis Inflammatory (HCC) 11/07/2022 Sacroiliitis 11/07/2022 High Risk Medication 11/07/2022 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HCC) 12/18/2022 High Risk Medication 12/18/2022 Arthritis Inflammatory (HCC) 12/18/2022 Sacroiliitis 12/18/2022 Primary Osteoarthritis Multiple Sites 12/18/2022 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HCC) 12/18/2022 Cataract Senile Nuclear Sclerosis Bilateral 03/05/2023 Membrane Macula Epiretinal Right 03/05/2023 Dry Eye Syndrome Bilateral 03/05/2023 Parkinsonism Unspecified (HCC) 03/14/2023 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HCC) 04/27/2023 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HCC) 04/27/2023 Parkinsonism Unspecified (HCC) 04/27/2023 Sleep Apnea 04/27/2023 Urinary Urge Incontinence 04/27/2023 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[facility]) 04/27/2023 Asthma Mild Intermittent With History Of Tobacco Use ([facility]) 04/27/2023 History Of Falling 04/27/2023 Murmur Heart 04/27/2023 Annual Medicare Examination Return 05/08/2023 Sacroiliitis 05/09/2023 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HCC) 05/09/2023 Arthritis Inflammatory (HCC) 05/09/2023 High Risk Medication 05/09/2023 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HCC) 05/15/2023 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HCC) 05/15/2023 Urinary Urge Incontinence 05/15/2023 Urinary Urge Incontinence 05/22/2023 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HCC) 06/20/2023 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HCC) 06/20/2023 Parkinsonism Unspecified (HCC) 06/20/2023 Parkinsonism Unspecified (HCC) 06/26/2023 Urgency Urinary 06/26/2023 Parkinsonism Unspecified (HCC) 06/27/2023 Pain Knee Right 07/26/2023 Pain Knee Right 07/26/2023 Parkinsonism Unspecified (HCC) 07/31/2023 Urinary Urge Incontinence 08/06/2023 Hypertonic Bladder 08/06/2023 Parkinsonism Unspecified (HCC) 08/08/2023 Sialorrhea 08/08/2023 Parkinsonism Unspecified (HCC) 08/14/2023 Medication Management Issue 08/14/2023 Polypharmacy 08/14/2023 Urinary Urge Incontinence 08/15/2023 Hypertonic Bladder 08/15/2023 Urinary Urge Incontinence 08/23/2023 Hypertonic Bladder 08/23/2023 Gastroesophageal Reflux Disease Without Esophagitis 08/28/2023 Need Vaccine Immunization Tetanus And Diphtheria Toxoids And Pertussis 08/28/2023 Overactive Bladder 09/06/2023 Parkinsonism Unspecified (HCC) 09/06/2023 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HCC) 12/11/2023 Overactive Bladder 12/11/2023 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HCC) 01/23/2024 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) 01/25/2024 Parkinsonism Unspecified (HCC) 01/30/2024 Urinary Urge Incontinence 01/30/2024 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) 01/31/2024 Parkinsonism Unspecified (HCC) 02/13/2024 Medication Management Issue 02/13/2024 Polypharmacy 02/13/2024 Cataract Senile Nuclear Sclerosis Bilateral 03/12/2024 Membrane Macula Epiretinal Right 03/12/2024 Dry Eye Syndrome Bilateral 03/12/2024 Membrane Macula Epiretinal Right 03/21/2024 Cataract Senile Nuclear Sclerosis Bilateral 03/21/2024 Arthritis Inflammatory (HCC) 05/08/2024 Annual Medicare Examination Return 05/08/2024 Sacroiliitis 06/17/2024 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[facility]) 06/17/2024 Arthritis Inflammatory ([facility]) 06/17/2024 High Risk Medication 06/17/2024 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[facility]) 06/18/2024 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[facility]) 06/18/2024 Dysfunction Eustachian Tube Bilateral 06/18/2024 Acute Recurrent Maxillary Sinusitis 06/18/2024 Arthritis Inflammatory (HCC) 07/25/2024 Swelling Leg Left 08/02/2024 Swelling Leg Left 08/02/2024 Elevated D-Dimer Uncertain Significance 08/02/2024 Pain Ankle Left 08/02/2024 Sensorineural Hearing Loss Unilateral Left Ear With Restricted Hearing On The Contralateral Side 08/06/2024 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 On The Contralateral Side 08/06/2024 Effusion Ear Middle Right 08/08/2024 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 On The Contralateral Side 08/08/2024 Pain Ankle Left 08/11/2024 Pain Ankle Left 08/11/2024 Swelling Leg Left 08/11/2024 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HCC) 08/11/2024 Membrane Macula Epiretinal Right 09/26/2024 Cataract Senile Nuclear Sclerosis Bilateral 09/26/2024 Otitis Media Chronic Serous Right 10/06/2024 Follow Up Examination Status Post Surgery 10/06/2024 Preoperative Exam 10/29/2024 Preoperative Exam 10/29/2024 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HCC) 10/29/2024 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HCC) 10/29/2024 High Risk Medication 10/29/2024 Preoperative Exam 10/29/2024 Parkinsonism Unspecified ([facility]) 10/29/2024 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[facility]) 10/29/2024 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[facility]) 10/29/2024 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[facility]) 10/29/2024 Sleep Apnea 10/29/2024 High Risk Medication 10/29/2024 Sacroiliitis 12/08/2024 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[facility]) 12/08/2024 Arthritis Inflammatory ([facility]) 12/08/2024 High Risk Medication 12/08/2024 Sialorrhea 12/25/2024 Sacroiliitis 01/19/2025 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[facility]) 01/19/2025 Arthritis Inflammatory ([facility]) 01/19/2025 High Risk Medication 01/19/2025 Sacroiliitis 01/27/2025 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HCC) 01/27/2025 Arthritis Inflammatory ([facility]) 01/27/2025 High Risk Medication 01/27/2025 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HCC) 01/29/2025 Arthritis Inflammatory ([facility]) 01/29/2025 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[facility]) 01/29/2025 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[facility]) 01/29/2025 Asthma Mild Intermittent With History Of Tobacco Use ([facility]) 01/29/2025 Gastroesophageal Reflux Disease Without Esophagitis 01/29/2025 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 [address] [place] [address] B[place] MOSS [phone] PCP - General 11/12/24
--- NOTE | 2025-03-10 09:53 | CRLHL7_ITS ---
For Patients: As a result of the Cures Act, medical imaging exams and procedure reports are released immediately into your electronic medical record. You may view this report before your referring provider. If you have questions, please contact your health care provider. INDICATION: Fall TECHNIQUE: CT cervical spine without contrast. COMPARISON: Cervical spine MRI 12/28/2011 FINDINGS: No evidence of fracture or suspicious bony lesions. Disc Spaces Occiput-C2: Unremarkable. C2/3: Facet hypertrophy without significant stenosis. C3/4: Facet hypertrophy with small posterior osteophytes causing mild left foraminal stenosis. C4/5: Facet hypertrophy with disc space narrowing with mild right foraminal stenosis. C5/6: Facet hypertrophy with posterior osteophytes causing mild bilateral foraminal stenosis. C6/7: Facet hypertrophy with posterior osteophytes without significant stenosis C7/T1: Facet hypertrophy without significant stenosis. Other: Mucous retention cysts maxillary sinuses. Ossicle within the nuchal ligament. IMPRESSION: Multilevel degenerative changes cervical spine without evidence of cervical spine fracture. Please note that all CT scans at this facility use dose modulation, iterative reconstruction, and/or weight-based dosing when appropriate to reduce radiation dose to as low as reasonably achievable. Dictated by Gurinder Rosado MD @ 03/10/2025 10:48:23 AM (Electronically Signed)
--- NOTE | 2025-03-10 09:53 | CRLHL7_ITS ---
For Patients: As a result of the Century Cures Act, medical imaging exams and procedure reports are released immediately into your electronic medical record. You may view this report before your referring provider. If you have questions, please contact your health care provider. INDICATION: Fall TECHNIQUE: CT head without contrast. COMPARISON: None. FINDINGS: CSF spaces: Within normal limits for age. Brain parenchyma: The singh-white differentiation is normal. No sign of mass, hemorrhage, or midline shift. Old lacunar infarct right cerebellum. Skull base and calvarium: Trace mucosal thickening paranasal sinuses. The visualized orbits are grossly unremarkable. No skull fractures. IMPRESSION: No intracranial bleed or calvarial fracture. Old right cerebellar lacunar infarct. Please note that all CT scans at this facility use dose modulation, iterative reconstruction, and/or weight-based dosing when appropriate to reduce radiation dose to as low as reasonably achievable. Dictated by Gurinder Rosado MD @ 03/10/2025 10:45:04 AM (Electronically Signed)
--- NOTE | 2025-03-10 09:53 | CRLHL7_ITS ---
For Patients: As a result of the Cures Act, medical imaging exams and procedure reports are released immediately into your electronic medical record. You may view this report before your referring provider. If you have questions, please contact your health care provider. Indication: Fall with deformity. Technique: Left elbow three views Comparison: None. Findings: Supracondylar fracture dislocation. Radial head dislocation with poor definition of the ulnohumeral joint. Impaction of the distal humerus with the epicondyles displaced and angled anteriorly. Coronoid process of the ulna poorly defined and fracture can not be excluded. Large hemarthrosis. Adjacent soft tissue swelling. Impression: 1. Complex supracondylar fracture dislocation. Recommendation : 1. CT elbow for further characterization. Dictated by Cedrick Knox MD @ 03/10/2025 10:52:09 AM (Electronically Signed)
[2025-03-10] MEDS: MORPHINE 4 MG/ML INJ IVP ×2 (10:39→12:02)
--- NOTE | 2025-03-10 11:00 | CRLHL7_ITS ---
For Patients: As a result of the Cures Act, medical imaging exams and procedure reports are released immediately into your electronic medical record. You may view this report before your referring provider. If you have questions, please contact your health care provider. INDICATION: Injury. Fall. Characterize known fracture. COMPARISON: Plain films 10 March 2025. TECHNIQUE: Multidetector imaging with axial coronal and sagittal formats. Some degradation of image quality due to positioning of the arm at the patient`s side. FINDINGS: Slightly impacted roughly v-shaped longitudinal fracture of the supracondylar into articular humerus through the capitellum, intercondylar notch and trochlea. Medial trochlea dominant butterfly fragment slightly dorsal and cephalad displaced. No definite intra-articular debris. Intact olecranon, coronoid process and radial head. IMPRESSION: Impacted moderately comminuted intra-articular fracture of the distal humerus through the supracondylar margin and into both medial and lateral condyles. No definitive intra-articular body/debris. Please note that all CT scans at this facility use dose modulation, iterative reconstruction, and/or weight-based dosing when appropriate to reduce radiation dose to as low as reasonably achievable. Dictated by Aravind Pantoja MD @ 03/10/2025 11:34:57 AM (Electronically Signed)
--- NOTE | 2025-03-10 11:33 | ED.FALL ---
HPI - Fall General Date Seen: 03/10/25 Chief Complaint: Fall/Minor Trauma Stated Complaint: fall Time Seen by Provider: 03/10/25 09:37 Source: patient and family Mode of arrival: EMS Limitations: no limitations History of Present Illness HPI Narrative: Patient is a 74-year-old male with history of Parkinson's disease presenting to the emergency department after a fall. He states he was walking up steps when he got dizzy. He states dizziness is normal for his Parkinson's. Caused him to step backwards about longterm down his steps and then he fell and felt on the rest of the steps. Is not sure if he hit his head or not. His only complaint right now is elbow pain. Denies any numbness to the hand at this time. Denies any other pain. Was not able to get up at the scene initially due to the pain and EMS had to help him. His states he is acting normally. No other concerns noted Related Data Home Medications ?Medication ?Instructions ?Recorded ?Confirmed carbidopa 25 mg-levodopa 100 mg tab PO 03/10/25 tablet methotrexate sodium 2.5 mg tablet PO 03/10/25 Allergies Allergy/AdvReac Type Severity Reaction Status Date / Time No Known Drug Allergies Allergy Verified 03/10/25 09:45 Review of Systems Status of ROS: Reports: 10 or more systems reviewed and unremarkable except as noted in History and below Exam Narrative: Exam Narrative: Const: Well-nourished, Well-developed, in moderate distress Eyes: PERRL, no conjunctival injection, and symmetrical lids HENT: Atraumatic external nose and ears. Moist mucous membranes. Neck: Symmetric, trachea midline, No thyromegaly. CVS: RRR, No murmurs or gallops. Peripheral pulses 2+ and equal in all extremities RESP: Unlabored respiratory effort. Clear to auscultation bilaterally. GI: Nontender/Nondistended, No rebound or guarding. MSK: Obvious deformity to left elbow. No midline spinal tenderness. No tenderness to rest of extremities or hips. Full range motion neck. Skin: Warm, Dry. No rashes or lesions. Neuro: Normal Muscle tone, No focal neurological deficits. Psych: Awake, Alert, & Oriented x3. Appropriate mood and affect. Const: Vital Signs, click to edit/add: Vital Signs - 24 hr 03/10/25 09:46 03/10/25 10:39 03/10/25 10:44 Temperature 97.4 F L Pulse Rate 68 67 Pulse Rate [Pulse Oximeter] 63 Respiratory Rate 18 18 Blood Pressure 118/75 Blood Pressure [Ri ght Upper Arm] 128/74 Pulse Oximetry 95 96 94 Oxygen Delivery Me thod Room Air 03/10/25 10:45 03/10/25 10:47 03/10/25 11:00 Temperature Pulse Rate 66 65 64 Pulse Rate [Pulse Oximeter] Respiratory Rate Blood Pressure 116/71 Blood Pressure [Ri ght Upper Arm] Pulse Oximetry 95 93 94 Oxygen Delivery Me thod 03/10/25 11:02 03/10/25 11:03 03/10/25 11:23 Temperature Pulse Rate 66 65 64 Pulse Rate [Pulse Oximeter] Respiratory Rate 16 Blood Pressure 126/76 Blood Pressure [Ri ght Upper Arm] Pulse Oximetry 95 93 95 Oxygen Delivery Me thod 03/10/25 11:30 03/10/25 11:31 03/10/25 11:45 Temperature Pulse Rate 71 65 68 Pulse Rate [Pulse Oximeter] Respiratory Rate Blood Pressure 130/78 Blood Pressure [Ri ght Upper Arm] Pulse Oximetry 96 96 96 Oxygen Delivery Me thod 03/10/25 11:46 Temperature Pulse Rate 67 Pulse Rate [Pulse Oximeter] Respiratory Rate Blood Pressure 130/88 Blood Pressure [Ri ght Upper Arm] Pulse Oximetry 96 Oxygen Delivery Me thod Course Vital Signs Vital signs: Initial Vital Signs Temperature 97.4 F L 03/10/25 09:46 Temperature Source Temporal Artery Scan 03/10/25 09:46 Pulse Rate 63 03/10/25 09:46 Pulse Rhythm Regular 03/10/25 09:46 Respiratory Rate 18 03/10/25 09:46 Blood Pressure 128/74 03/10/25 09:46 Blood Pressure Mean 92 03/10/25 09:46 Blood Pressure Position Sitting 03/10/25 09:46 Pulse Oximetry 95 03/10/25 09:46 Oxygen Delivery Method Room Air 03/10/25 09:46 Vital Signs Temperature 97.4 F L 03/10/25 09:46 Pulse Rate 63 03/10/25 09:46 Respiratory Rate 18 03/10/25 09:46 Blood Pressure 128/74 03/10/25 09:46 Pulse Oximetry 95 03/10/25 09:46 Oxygen Delivery Method Room Air 03/10/25 09:46 Temperature 97.4 F L 03/10/25 09:46 Pulse Rate 67 03/10/25 11:46 Respiratory Rate 16 03/10/25 11:02 Blood Pressure 130/88 03/10/25 11:46 Pulse Oximetry 96 03/10/25 11:46 Oxygen Delivery Method Room Air 03/10/25 09:46 Medications Administered Medications: Discontinued Medications Generic Name Dose Route Start Last Admin Trade Name Braden PRN Reason Stop Dose Admin Morphine Sulfate 4 mg 03/10/25 09:53 03/10/25 10:39 Morphine 4 Mg/Ml Inj IVP 03/10/25 09:54 4 mg ONCE ONE Administration MDM - Fall MDM Narrative Medical decision making narrative: Patient is 74-year-old male presenting to the emergency department after a fall. It sounds like the fall was due to his Parkinson's. He does not of his elbow deformity which we will x-ray. Also do a CT scan of his head and cervical spine. Morphine given for pain. He is neurovascular intact Morphine did not help much with the pain so will consult Anesthesia for a nerve block. CT scan of the head and neck showed no acute concerning abnormalities. Elbow x-ray shows a complicated supracondylar fracture with some dislocation. CT scan recommended for better evaluation. I did speak to the on-call orthopedic provider here in the recommend transfer to a level 1 trauma center. I spoke to Dr. Mcmahan of [place] emergency department and accepted him for transfer. We were going to do a block of his left arm via Anesthesiology. Anesthesia set the can not do it but states in the past they were told not to do the block prior to transfer as then the transferring facility cannot do a thorough neurological exam and they have gotten in trouble for it before. Due to this will hold off on the block. CT returned showing impacted mildly comminuted intra-articular fracture of the distal humerus the subdural condyloma margin into both medial and lateral condyles. He is currently splinted via EMS so. I was going to place another splint prior to transfer but this that is currently holding well EMS is here ready to transfer him. Imaging Data CT scan head: Attestation: I have reviewed the pertinent imaging results. Radiologist's impression: No intracranial bleed or calvarial fracture. Old right cerebellar lacunar infarct. Please note that all CT scans at this facility use dose modulation, iterative reconstruction, and/or weight-based dosing when appropriate to reduce radiation dose to as low as reasonably achievable. Dictated by Gurinder Rosado MD @ 03/10/2025 10:45:[address] scan cervical spine: Attestation: I have reviewed the pertinent imaging results. Radiologist's impression: Multilevel degenerative changes cervical spine without evidence of cervical spine fracture. Please note that all CT scans at this facility use dose modulation, iterative reconstruction, and/or weight-based dosing when appropriate to reduce radiation dose to as low as reasonably achievable. Dictated by Gurinder Rosado MD @ 03/10/2025 10:48:23 AM Left elbow x-ray: Attestation: I have reviewed the pertinent imaging results. Radiologist's impression: 1. Complex supracondylar fracture dislocation. Recommendation : 1. CT elbow for further characterization. Dictated by Cedrick Knox MD @ 03/10/2025 10:52:[address] scan elbow: Attestation: I have reviewed the pertinent imaging results. Radiologist's impression: Impacted moderately comminuted intra-articular fracture of the distal humerus through the supracondylar margin and into both medial and lateral condyles. No definitive intra-articular body/debris. Please note that all CT scans at this facility use dose modulation, iterative reconstruction, and/or weight-based dosing when appropriate to reduce radiation dose to as low as reasonably achievable. Dictated by Aravind Pantoja MD @ 03/10/2025 11:34:57 AM Discharge Plan Discharge Clinical Impression: Elbow fracture, left Qualifiers: Encounter type: initial encounter Fracture type: closed Qualified Code(s): S42.402A - Unspecified fracture of lower end of left humerus, initial encounter for closed fracture Patient Disposition: [facility] Condition: Stable
== END 2025-03-10 12:09 | disposition short-term general hospital (02) ==
PROVIDERS: Emergency Provider Student in an Organized Health Care Education/Training Program
DX: S42.402A Unspecified fracture of lower end of left humerus, initial encounter for closed fracture (principal); R42 Dizziness and giddiness; W19.XXXA Unspecified fall, initial encounter
CPT/HCPCS: 70450; 72125; 73080; 73200; 94761; 96374; 96376; 99284; 99285; J2270

== ENCOUNTER 2025-03-10 11:48 | Outpatient (CLI) | payer MEDICARE, SELFPAY | END 2025-03-10 11:50 | disposition home or self-care (01) | LOC: AMB 07-27 08:47 | PROVIDERS: Visit Provider Family Medicine | DX: S42.402A Unspecified fracture of lower end of left humerus, initial encounter for closed fracture (principal) | CPT/HCPCS: A0425; A0427 ==